=== PATIENT | female | born 1940 | race American Indian/Alaskan Native ===

== ENCOUNTER 2016-07-25 18:11 | Emergency (ER) | payer MEDICARE ==
--- NOTE | 2016-07-25 19:48 | Emergency Department Report ---
HPI - General Chief Complaint: Fall Time Seen by Provider: 07/25/16 19:24 - HPI HPI: This is a 76-year-old Afro[place] female presents to the emergency department by EMS from her [facility] assisted living home with complaint of a fall from ground-level agent was attempting to sit down in a chair and missed the chair falling down onto her backside. Patient remembers the entire event and denies hitting her head, hitting her neck, or any loss of consciousness. She has 0 physical complaints at this time but says she was sent in by the assisted living facility as they do so any time there is any type of fall or trauma. She has a past medical history of pulmonary embolism and is on Eloquist. She has some neurological condition that causes tremors. For the past week the patient has been having some hypertensive issues and is being followed by the primary care physician, Dr. tomas. She did not take anything and was not given anything status post fall today. She is able to ambulate without any type of assistance while in her residence but sometimes uses a cane when she is walking around the facility. ED Past Medical Hx - Past Medical History Previous Medical History?: Yes Hx Hypertension: Yes Hx Congestive Heart Failure: No Hx Diabetes: No Hx Deep Vein Thrombosis: Yes Hx Pulmonary Embolism: Yes Hx Asthma: No Hx COPD: No Hx Dementia: Yes Additional medical history: Neuromyelitis Optica - Surgical History Past Surgical History?: Yes Hx Pacemaker: Yes - Social History Smoking Status: Never Smoker Substance Use Type: None - Medications Home Medications: Home Medications Medication Instructions Recorded Confirmed Last Taken Type Acetaminophen [Acetaminophen TAB] 650 mg PO Q6H PRN #30 tablet 02/20/16 Unknown Rx Apixaban [Eliquis] 5 mg PO Q12HR #60 tablet 02/24/16 02/25/16 Unknown Rx AtorvaSTATin [Lipitor] 10 mg PO HS #30 tablet 02/24/16 02/24/16 Unknown Rx HYDROcodone/APAP 5-325 [[place] 1 each PO Q4H PRN #30 tablet 02/24/16 02/24/16 Unknown Rx 5-325 mg TAB] Magnesium Hydroxide [Milk of 30 ml PO Q4H PRN #30 oral.liqd 02/24/16 02/24/16 Unknown Rx Magnesia] Methimazole 10 mg PO QAM #30 02/24/16 02/24/16 Unknown Rx Mirtazapine 15 mg PO HS #30 tablet 02/24/16 02/24/16 Unknown Rx Pantoprazole [Protonix TAB] 40 mg PO DAILY #30 tablet 02/24/16 02/24/16 Unknown Rx Propranolol LA [Inderal LA] 80 mg PO QDAY #30 capsule 02/24/16 02/24/16 Unknown Rx Amlodipine Besylate [Norvasc] 2.5 mg PO DAILY #30 tab 07/25/16 Unknown Rx ED Review of Systems ROS: Stated complaint: FALL/STANDING POSITION Other details as noted in HPI Comment: All other systems reviewed and negative Constitutional: denies: chills, fever Eyes: denies: eye pain, eye discharge, vision change ENT: denies: ear pain, throat pain Respiratory: denies: cough, shortness of breath, wheezing Cardiovascular: denies: chest pain, palpitations Gastrointestinal: denies: abdominal pain, nausea, diarrhea Genitourinary: denies: urgency, dysuria, discharge Musculoskeletal: denies: back pain, joint swelling, arthralgia Skin: denies: rash, lesions Neurological: denies: headache, weakness, paresthesias Physical Exam - Physical Exam Vital Signs: Vital Signs 07/25/16 19:18 Temperature 97.9 F Pulse Rate 66 Blood Pressure 189/75 O2 Sat by Pulse 94 Oximetry Physical Exam: GENERAL: The patient is well-developed well-nourished. HEENT: Normocephalic. Atraumatic. Extraocular motions are intact. Patient has moist mucous membranes. Pupils equal reactive to light bilaterally. NECK: Supple. Trachea is midline. CHEST/LUNGS: Clear to auscultation. There is no respiratory distress noted. HEART/CARDIOVASCULAR: Regular. There is no tachycardia. There is no gallop rub or murmur. ABDOMEN: Abdomen is soft, nontender. Patient has normal bowel sounds. There is no abdominal distention. SKIN: There is no rash. There is no edema. There is no diaphoresis. NEURO: The patient is awake, alert, and oriented. The patient is cooperative. The patient has no focal neurologic deficits. The patient has normal speech. Cranial nerves II through XII grossly intact. MUSCULOSKELETAL: There is no tenderness or deformity. There is no limitation range of motion. There is no evidence of acute injury. Muscle strength 5 out of 5 upper and lower extremities bilaterally. ED Course Vital Signs 07/25/16 19:18 Temperature 97.9 F Pulse Rate 66 Blood Pressure 189/75 O2 Sat by Pulse 94 Oximetry ED Medical Decision Making - Radiology Data Radiology results: report reviewed, image reviewed interpreted by me: Chest x-ray does not show any rib fracture, pneumothorax, pleural effusions, pneumonia or any acute process. X-ray of the pelvis shows some degenerative changes and arthritis but otherwise no acute fracture or dislocation. CT of the head does not show any acute process including no hemorrhage, mass, shift, diffuse edema or skull fracture. - Medical Decision Making 76-year-old female presents after trying to sit down in a chair, missing, and falling onto her backside. She denies any headache or any loss of consciousness. However secondary to the fact the patient is on a strong blood thinner, a CT of the head was done, but it resulted as no bleed, shift, mass or any acute process. X-rays of the chest and pelvis were done as well that did not show any fracture, pneumothorax, dislocation or any acute processes as well. Patient was seen ambulatory in the emergency department and appeared stable during so. She presents with some hypertensive issues and this is something she has been dealing with for the past week and is being followed by the primary care doctor. However the patient did have some blood pressure levels that were concerning so she was given a low dose of Norvasc and it came down to a more reasonable level. She was started on 2.5 mg Norvasc to be taken daily and encouraged to follow-up with the primary care doctor in the next few days as well as the mixer tender, to see if they want to continue with his blood pressure medication changed to something else. She will return to the ER with any worsening of her symptoms or any acute distress. Critical Care Time: No Critical care attestation.: If time is entered above; I have spent that time in minutes in the direct care of this critically ill patient, excluding procedure time. ED Disposition Clinical Impression: Fall Qualifiers: Encounter type: initial encounter Qualified Code(s): W19.XXXA - Unspecified fall, initial encounter HTN (hypertension) Qualifiers: Hypertension type: essential hypertension Qualified Code(s): I10 - Essential ( primary) hypertension Disposition: DISCHARGED TO HOME OR SELFCARE Is pt being admited?: No Condition: Stable Instructions: Hypertension (ED), Fall Prevention (ED) Additional Instructions: Please follow-up with your primary care doctor and mixer tender as soon as possible. I have started you on a blood pressure medication called Norvasc at a low dose to be taken once daily, normally in the morning. Try to stay away from foods that are high in salt and caffeinated products to help with her blood pressure. Keep a blood pressure log. Return to the emergency department with any worsening of your symptoms or any acute distress. Prescriptions: Amlodipine Besylate [Norvasc] 2.5 mg PO DAILY #30 tab Referrals: PRIMARY CAREMD [Primary Care Provider] - [facility] Time of Disposition: 22:57
--- NOTE | 2016-07-25 20:37 | Cat Scan Report ---
FINAL REPORT PROCEDURE: CT HEAD/BRAIN WO CON TECHNIQUE: Computerized tomography of the head was performed without contrast material. HISTORY: fall COMPARISON: No prior studies are available for comparison. FINDINGS: Skull and scalp: Normal. Paranasal sinuses: Normal. Ventricles and subarachnoid spaces: There is mild central and cortical atrophy. There is no hydrocephalus or asymmetry.. Cerebrum: No evidence of hemorrhage, acute infarction or mass . Cerebellum and brainstem: No evidence of hemorrhage, acute infarction or mass. Vasculature: Normal. Comments: There is mild chronic deep white matter ischemic gliosis.. IMPRESSION: There is no acute intracranial abnormality. There is no skull fracture or hemorrhage.
[2016-07-25] MEDS ORDERED: NORVASC PO ONE (21:25)
[2016-07-25 22:14] VITALS: BP 153/85
--- NOTE | 2016-07-26 08:33 | XRay Report ---
AP pelvis. History: Pelvic pain after fall. Findings: There no fractures or other acute findings. Vascular stent is noted in the right iliac region. Bone mineralization is normal. Impression: No acute findings.
--- NOTE | 2016-07-26 08:37 | XRay Report ---
AP chest x-ray. History: Chest pain after fall. Findings: The heart and pulmonary vessels are normal. The lungs are free of acute infiltrates. A bipolar pacemaker is noted. Minimal pleural thickening in the right lateral lower thorax is unchanged. No pleural fluid is seen. Chronic deformity of the right proximal humerus is stable. Impression: No acute findings.
== END 2016-07-25 23:15 | disposition home or self-care (01) ==
LOC: ED 18:11
DX: I10 Essential (primary) hypertension (principal); F03.90 Unspecified dementia, unspecified severity, without behavioral disturbance, psychotic disturbance, mood disturbance, and anxiety; Z86.718 Personal history of other venous thrombosis and embolism; Z86.711 Personal history of pulmonary embolism; W18.30XA Fall on same level, unspecified, initial encounter; Y93.9 Activity, unspecified; Y92.9 Unspecified place or not applicable; Y99.9 Unspecified external cause status
CPT/HCPCS: 70450; 71010; 72170; 99284

== ENCOUNTER 2016-08-18 18:43 | Inpatient (IN) | payer MEDICARE ==
[2016-08-18] MEDS ORDERED: TRIDIL DRIP 50MG/250ML 50 MG/250 ML BOTTLE ONE (18:45)
[2016-08-18] MEDS ORDERED: NITROSTAT SL ONE (18:45)
[2016-08-18] MEDS ORDERED: SUBLIMAZE ONE (18:55)
[2016-08-18] MEDS ORDERED: NACL 0.9% 1000 ML 1,000 ML IV ONE ×2 (19:07→20:09)
[2016-08-18] MEDS ORDERED: PROVENTIL IH ONE (19:07)
[2016-08-18] MEDS ORDERED: MAGNESIUM SULFATE 2GM/50ML 2 GM/50 ML BAG IV ONE (19:07)
[2016-08-18] MEDS ORDERED: ATROVENT IH ONE (19:07)
[2016-08-18] MEDS ORDERED: VANCOMYCIN/NS 1 GM/250 ML 1 GM/250 ML BAG IV ONE (19:07)
[2016-08-18] MEDS ORDERED: ARTIFICIAL TEARS OPHTH OINT OU PRN (19:09)
[2016-08-18] MEDS ORDERED: VASELINE LIP THERAPY TP PRN (19:09)
--- NOTE | 2016-08-18 19:14 | Admit Criteria Form ---
Admission Criteria Documentation: RESPIRATORY FAILURE GRG Clinical Indications for Admission to Inpatient Care (Place 'X' for any and all applicable criteria): Hospital admission is needed for appropriate care of the patient because of acute respiratory failure or insufficiency as indicated by ANY ONE of the following(1)(2)(3)(4)(5)(6)(7)(8): [X]I. Mechanical ventilation needed (acute invasive or noninvasive) [ ]II. Severe ventilation deficit as indicated by ANY ONE of the following (9) [ ]a) Respiratory acidosis (pH less than 7.32 and partial pressure of carbon dioxide greater than 40 mm Hg (5.3 kPa)) [ ]b) Partial pressure of carbon dioxide greater than 44 mm Hg (5.9 kPa ) (new) [ ]c) Airflow measurements less than 25% of predicted (eg, peak expiratory flow rate less than 100 L/minute) [ ]d) Forced vital capacity less than 15 mL/kg of ideal body weight, or 50% decrease in vital capacity from baseline [ ]III. Noncardiac pulmonary edema not resolving with rapid emergency treatment (8) [ ]IV. Severe respiratory distress as indicated by ANY ONE of the following: [ ]a) Severe tachypnea (respiratory rate greater than 30, greater than 45 for 6-month-old, greater than 60 for ) [ ]b) Severe hypoxemia (partial pressure of oxygen less than 50 mm Hg ( 6.7 kPa) on greater than 50% oxygen or partial pressure of oxygen to FIO2 ratio less than 200) [ ]c) Mental status deterioration from respiratory disease [ ]V. Airway obstruction or inadequate protection [A](10)(11) The original [employer] content created by [employer] has been revised. The portions of the content which have been revised are identified through the use of italic text or in bold, and [employer] has neither reviewed nor approved the modified material. All other unmodified content is copyright [employer]. Please see references footnoted in the original [employer] edition 2016 Admission Criteria Met: Yes
--- NOTE | 2016-08-18 19:18 | Emergency Department Report ---
ED Shortness of Breath HPI - General Chief Complaint: Dyspnea/Respdistress Stated Complaint: UNRESPONSIVE Time Seen by Provider: 08/18/16 19:06 Source: EMS Mode of arrival: Stretcher Limitations: Altered Mental Status - History of Present Illness Initial Comments: Patient is a 76-year-old female, unknown to me, presenting to the ER in severe respiratory distress. History taking from EMS, called to the house, upon arrival patient was in severe respiratory distress, EMS reports she had a gag and was loosely following commands however they were giving rescue breaths via BVM with a nasopharyngeal airway in. Minimal history given, known history of CHF , and patient was discharged from [facility] today after having a CVA. Pt is on eliquis and mulitple other drugs. Upon arrival, patient saturating in the 80's, no gag reflex, tolerating oral airway and BVM, decision was made to intubated the patient. Pt was given ketamine 100mg and rocuronium 100mg IVP, intubated with glidescope x 1 attempt, MAC 3, 7.5 ETT 22cm at the lip. Breath sounds bilaterally, end cap with proper color change. - Related Data Home Medications Medication Instructions Recorded Confirmed Last Taken Acetaminophen [Acetaminophen TAB] 650 mg PO Q6H PRN 08/15/16 08/15/16 Unknown Loratadine [Claritin] 10 mg PO DAILY 08/15/16 08/15/16 Unknown Propranolol LA [Inderal LA] 80 mg PO QAM 08/15/16 08/15/16 Unknown Previous Rx's Medication Instructions Recorded Last Taken Type Apixaban [Eliquis] 5 mg PO Q12HR #60 tablet 02/24/16 Unknown Rx AtorvaSTATin [Lipitor] 10 mg PO HS #30 tablet 02/24/16 Unknown Rx Methimazole 10 mg PO QAM #30 02/24/16 Unknown Rx Mirtazapine 15 mg PO HS #30 tablet 02/24/16 Unknown Rx Furosemide [Lasix TAB] 20 mg PO 3XW #1 08/17/16 Unknown Rx Gabapentin [Neurontin] 100 mg PO Q8HR #30 08/17/16 Unknown Rx traMADol [Ultram 50 MG tab] 50 mg PO Q6HR PRN #7 tablet 08/17/16 Unknown Rx Allergies Allergy/AdvReac Type Severity Reaction Status Date / Time warfarin sodium Allergy Hives Verified 02/16/16 11:56 [From Coumadin] ED Review of Systems ROS: Stated complaint: UNRESPONSIVE Other details as noted in HPI Comment: Unobtainable due to pts medical conditions ED Past Medical Hx - Past Medical History Hx Hypertension: Yes Hx Heart Attack/AMI: No Hx Congestive Heart Failure: No Hx Diabetes: No Hx Deep Vein Thrombosis: Yes Hx Pulmonary Embolism: Yes Hx Liver Disease: No Hx Arthritis: Yes Hx Seizures: No Hx Asthma: No Hx COPD: No Hx Dementia: Yes Hx HIV: No Additional medical history: Neuromyelitis Optica - Surgical History Hx Coronary Stent: No Hx Pacemaker: Yes Hx Internal Defibrillator: No - Social History Smoking Status: Never Smoker - Medications Home Medications: Home Medications Medication Instructions Recorded Confirmed Last Taken Type Apixaban [Eliquis] 5 mg PO Q12HR #60 tablet 02/24/16 08/15/16 Unknown Rx AtorvaSTATin [Lipitor] 10 mg PO HS #30 tablet 02/24/16 08/15/16 Unknown Rx Methimazole 10 mg PO QAM #30 02/24/16 08/15/16 Unknown Rx Mirtazapine 15 mg PO HS #30 tablet 02/24/16 08/15/16 Unknown Rx Acetaminophen [Acetaminophen TAB] 650 mg PO Q6H PRN 08/15/16 08/15/16 Unknown History Loratadine [Claritin] 10 mg PO DAILY 08/15/16 08/15/16 Unknown History Propranolol LA [Inderal LA] 80 mg PO QAM 08/15/16 08/15/16 Unknown History Furosemide [Lasix TAB] 20 mg PO 3XW #1 08/17/16 08/15/16 Unknown Rx Gabapentin [Neurontin] 100 mg PO Q8HR #30 08/17/16 08/15/16 Unknown Rx traMADol [Ultram 50 MG tab] 50 mg PO Q6HR PRN #7 tablet 08/17/16 Unknown Rx ED Physical Exam - General Limitations: Altered Mental Status, Physical Limitation General appearance: obtunded, in distress - Head Head exam: Present: atraumatic, normocephalic - Eye Eye exam: Present: PERRL. Absent: EOMI, scleral icterus, nystagmus - ENT ENT exam: Present: mucous membranes moist, other (wet breath sounds) - Neck Neck exam: Present: normal inspection. Absent: lymphadenopathy, thyromegaly - Respiratory Respiratory exam: Present: respiratory distress, rales, rhonchi, decreased breath sounds - Cardiovascular Cardiovascular Exam: Present: regular rate, normal heart sounds, other ( pacermaker in left chest) - GI/Abdominal GI/Abdominal exam: Present: soft. Absent: distended - Rectal Rectal exam: Present: deferred - Extremities Exam Extremities exam: Present: normal inspection - Back Exam Back exam: Present: normal inspection - Neurological Exam Neurological exam: Present: other (unresponsive). Absent: alert, oriented X3 ED Course Vital Signs 08/18/16 08/18/16 08/18/16 19:00 19:04 19:05 Temperature 97.0 F L 98.7 F 97.0 F L Pulse Rate 102 H 87 Respiratory 20 19 Rate Blood Pressure Blood Pressure 102/70 95/50 [Left] O2 Sat by Pulse 88 89 100 Oximetry 08/18/16 08/18/16 08/18/16 19:11 19:15 19:21 Temperature Pulse Rate 85 85 76 Respiratory 19 19 17 Rate Blood Pressure 63/36 56/31 211/126 Blood Pressure [Left] O2 Sat by Pulse 100 95 Oximetry 08/18/16 08/18/16 08/18/16 19:25 19:31 19:35 Temperature Pulse Rate 75 81 77 Respiratory 17 18 18 Rate Blood Pressure 205/111 124/72 136/108 Blood Pressure [Left] O2 Sat by Pulse 100 Oximetry 08/18/16 08/18/16 08/18/16 19:37 19:41 19:45 Temperature Pulse Rate 77 72 Respiratory 18 18 18 Rate Blood Pressure 58/31 58/24 Blood Pressure [Left] O2 Sat by Pulse 99 Oximetry 08/18/16 08/18/16 08/18/16 19:50 19:55 20:00 Temperature Pulse Rate 70 70 71 Respiratory 18 18 18 Rate Blood Pressure 62/28 61/29 68/31 Blood Pressure [Left] O2 Sat by Pulse Oximetry 08/18/16 08/18/16 08/18/16 20:05 20:10 20:15 Temperature Pulse Rate 74 75 72 Respiratory 18 18 18 Rate Blood Pressure 59/39 81/51 80/48 Blood Pressure [Left] O2 Sat by Pulse 93 Oximetry 08/18/16 08/18/16 08/18/16 20:21 20:25 20:30 Temperature Pulse Rate 70 70 69 Respiratory 18 18 18 Rate Blood Pressure 119/72 139/82 131/77 Blood Pressure [Left] O2 Sat by Pulse 93 97 100 Oximetry 08/18/16 08/18/16 08/18/16 20:35 20:40 20:45 Temperature Pulse Rate 74 71 71 Respiratory 18 18 18 Rate Blood Pressure 114/71 130/79 120/88 Blood Pressure [Left] O2 Sat by Pulse Oximetry 08/18/16 08/18/16 08/18/16 20:50 20:55 21:01 Temperature Pulse Rate 77 69 74 Respiratory 18 18 19 Rate Blood Pressure 139/82 149/82 161/92 Blood Pressure [Left] O2 Sat by Pulse Oximetry 08/18/16 08/18/16 08/18/16 21:05 21:11 21:15 Temperature Pulse Rate 71 69 69 Respiratory 17 18 18 Rate Blood Pressure 161/92 161/92 139/82 Blood Pressure [Left] O2 Sat by Pulse 100 Oximetry 08/18/16 08/18/16 08/18/16 21:20 22:38 22:45 Temperature Pulse Rate 70 70 72 Respiratory 13 18 20 Rate Blood Pressure 139/82 133/80 148/75 Blood Pressure [Left] O2 Sat by Pulse 100 Oximetry 08/18/16 08/18/16 08/18/16 23:00 23:15 23:19 Temperature Pulse Rate 70 71 70 Respiratory 18 17 Rate Blood Pressure 157/77 153/90 157/77 Blood Pressure [Left] O2 Sat by Pulse Oximetry 08/18/16 08/18/16 23:30 23:56 Temperature Pulse Rate 70 72 Respiratory 18 18 Rate Blood Pressure 151/91 Blood Pressure [Left] O2 Sat by Pulse Oximetry - Central Line Placement Right Femoral Consent Obtained: emergent situation Time Out Performed: Yes Patient Placed on Monitor/Pulse Ox: Yes Prep: mask, gown, gloves Central Line Prep: Chlorhexidine scrub, sterile drapes applied Local Anesthesia Used: other anesthetic Ultrasound Used for Placement: Yes Central Line Lumen Inserted: triple Bloods Obtained for Lab: Yes Central Line Position: good blood return, all ports aspirated, flus, sutured in place with 2-0 Dressing Applied: Tegaderm Post Procedure X-Ray: tip of catheter in good p Patient Tolerated Procedure: well Complications: none - Intubation Time Out Performed: Yes Sedative: Ketamine Mg Given: 100 Paralytic: Rocuronium Mg Given: 100 Laryngoscope: fiberoptic video scope Size: 3 Assist Device Used: fiberoptic device ET Tube Size: 7.5 Tube Secured Depth (cm): 22 Tube Secured Location: lips Tube Placement Confirmation: visualized tube passing t, equal breath sounds bilat, confirmation by capnometr Patient Tolerated Procedure: well Intubation Complications: none ED Medical Decision Making - Lab Data Result diagrams: 08/18/16 20:44 08/18/16 19:46 - EKG Data -: EKG Interpreted by Nv - EKG Data 08/18/16 1858 A paced rhythm at 70 bpm, QTC 43 ms, normal axis, no LVH, no ST changes no STEMI - Radiology Data Radiology results: report reviewed KUB: AP portable view of the abdomen and pelvis Enteric tube courses below the diaphragm and terminates in the left upper abdomen. The distal side port is at or near the gastroesophageal junction. Infrarenal IVC filter is present. Right iliac vascular stent with femoral catheter in place. No supine evidence of pneumoperitoneum. Patient is rotated. Right lower lung pleural effusion. IMPRESSION: Right femoral line within or adjacent to vascular stent. Enteric tube is in place with side port at or near the gastroesophageal junction. Consider advancement of 4-5 centimeters for more optimal positioning. Transcribed By: JASMYNE Dictated By: ARTHUR BELLA MD Electronically Authenticated By: ARTHUR BELLA MD Signed Date/Time: 08/18/[address] head: No acute intercranial abnormality. Atrophy stable. Right sinusitis. CXR:FINDINGS: Endotracheal tube terminates approximately 4 centimeters above the dima. Enteric tube courses below the hemidiaphragm with distal side port at or near the gastroesophageal junction. A left chest pacemaker is present. Patient is rotated. No mediastinal shift. Cardiac silhouette is not enlarged. No pneumothorax. Right lower lung airspace disease and small layering effusion. No acute skeletal finding. IMPRESSION: Small right pleural effusion may be cardiogenic, infectious or malignant in etiology. PA and lateral chest radiographic follow-up to resolution recommended. Transcribed By: JASMYNE Dictated By: ARTHUR BELLA MD Electronically Authenticated By: ARTHUR BELLA MD Signed Date/Time: 08/18/16 4296 - Medical Decision Making Pt in critical condition, unknown reason for sudden respiratory distress and obtunded state. As per daughter she was talking and moving around this morning prior to discharge from the hospital. Discharge records reviewed from 1051 this morning. Pt has a history of hypothyroidism, hypertension, and was admitted initially for sudden weakness, inability to walk, and frailty. She was admitted under stroke protocol, however brain imaging show any stroke. 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 Statin was discontinued, patient was seen by physical therapy while in the hospital and then was supposed to go to subacute rehabilitation for further rehabilitation today. Patient was discharged. Critical Care Time: Yes Critical care time in (mins) excluding proc time.: 35 Critical care attestation.: If time is entered above; I have spent that time in minutes in the direct care of this critically ill patient, excluding procedure time. Upon arrival, patient saturating in the 80's, no gag reflex, tolerating oral airway and BVM, decision was made to intubate the patient. Pt was given ketamine 100mg and rocuronium 100mg IVP, intubated with glidescope x 1 attempt, MAC 3, 7.5 ETT 22cm at the lip. Breath sounds bilaterally, end cap with proper color change. Ordered broad spec antibiotics for empiric coverage. Barragan and NGT tube placed. ED Disposition Clinical Impression: Respiratory failure, Altered mental status Disposition: [id number] OP ADMIT IP TO THIS HOSP Is pt being admited?: Yes Condition: Critical
[2016-08-18] MEDS ORDERED: ADRENALIN IV ONE (19:44)
[2016-08-18] MEDS ORDERED: LEVOPHED DRIP 4 MG/NS 250 ML 4 MG/250 ML BAG IV ONE (19:54)
[2016-08-18] MEDS: LEVOPHED DRIP 4 MG/NS 250 ML 4 MG/250 ML BAG IV SCH (20:03)
--- NOTE | 2016-08-18 20:05 | History and Physical Report ---
History of Present Illness Chief complaint: I cant breathe, History of present illness: 75 YO Female with HTN, DVT complicated by PE in Anticoagulation, OA, Dementia, CHF, HTN, HLD, Restless Leg Syndrome presents to ED for evaluation. Pt unable to provide history, but history taken from ED staff, and EMS staff. EMS called to for respiratory distress. Upon arrival pt found to be hypoxemic with Sao2 in the 80's and in distress, and unresponsive. Pt transported to [facility]. Pt seen and evaluated in ED and found to be in distress and unable to protect her airway. Pt intubated in ED, pt also found to by hypotensive with systolic in 80's and placed on pressor support. No reports of fever, chills, CP, Palpitatons, trauma , BRBPR, or recent ill contacts. Past History Past Medical History: DVT, heart failure, hyperthyroidism, hypertension, hyperlipidemia, pulmonary embolism Past Surgical History: Other (IVC filter, Pacemaker) Social history: . denies: smoking, alcohol abuse, prescription drug abuse Family history: hypertension Medications and Allergies Allergies Allergy/AdvReac Type Severity Reaction Status Date / Time warfarin sodium Allergy Hives Verified 02/16/16 11:56 [From Coumadin] Home Medications Medication Instructions Recorded Confirmed Last Taken Type Apixaban [Eliquis] 5 mg PO Q12HR #60 tablet 02/24/16 08/15/16 Unknown Rx AtorvaSTATin [Lipitor] 10 mg PO HS #30 tablet 02/24/16 08/15/16 Unknown Rx Methimazole 10 mg PO QAM #30 02/24/16 08/15/16 Unknown Rx Mirtazapine 15 mg PO HS #30 tablet 02/24/16 08/15/16 Unknown Rx Acetaminophen [Acetaminophen TAB] 650 mg PO Q6H PRN 08/15/16 08/15/16 Unknown History Loratadine [Claritin] 10 mg PO DAILY 08/15/16 08/15/16 Unknown History Propranolol LA [Inderal LA] 80 mg PO QAM 08/15/16 08/15/16 Unknown History Furosemide [Lasix TAB] 20 mg PO 3XW #1 08/17/16 08/15/16 Unknown Rx Gabapentin [Neurontin] 100 mg PO Q8HR #30 08/17/16 08/15/16 Unknown Rx traMADol [Ultram 50 MG tab] 50 mg PO Q6HR PRN #7 tablet 08/17/16 Unknown Rx Active Meds: Active Medications Hydrophilic Ointment (Vaseline Lip Therapy) 1 applic TP Q2HR PRN PRN Reason: Dry Lips Fentanyl Citrate (Fentanyl Drip Premix) 2,000 mcg in 100 mls @ 3.969 mls/hr IV TITR INGRIS; 1 MCG/KG/HR PRN Reason: Protocol Sodium Chloride (Nacl 0.9% 1000 Ml) 1,000 mls @ 999 mls/hr IV BOLUS ONE Stop: 08/18/16 20:07 Propofol (Diprivan 10 Mg/Ml) 1,000 mg in 100 mls @ 2.381 mls/hr IV TITR INGRIS; 5 MCG/KG/MIN PRN Reason: Protocol Vancomycin HCl (Vancomycin/Ns 1 Gm/250 Ml) 1 gm in 250 mls @ 167.007 mls/hr IV ONCE ONE PRN Reason: Protocol Stop: 08/18/16 20:36 Norepinephrine (Levophed Drip 4 Mg/Ns 250 Ml) 4 mg in 250 mls @ 7.5 mls/hr IV TITR INGRIS; 2 MCG/MIN PRN Reason: Protocol Last Admin: 08/18/16 20:03 Dose: 6 mcg/min, 22.5 mls/hr Multi-Ingred Cream/Lotion/Oil/Oint (Artificial Tears Ophth Oint) 1 applic OU Q4HR PRN PRN Reason: Dry Eye(s) Review of Systems ROS unobtainable: due to mental status Exam - Constitutional Vitals: Temp Pulse Resp BP Pulse Ox 97.0 F L 75 18 205/111 99 08/18/16 19:05 08/18/16 19:25 08/18/16 19:37 08/18/16 19:25 08/18/16 19:37 General appearance: Present: severe distress - Neck Neck: Present: supple, normal ROM - Respiratory Respiratory effort: labored Respiratory: bilateral: diminished - Cardiovascular Rhythm: regular Heart Sounds: Present: S1 & S2 - Extremities Extremity abnormal: edema Peripheral Pulses: within normal limits - Abdominal General gastrointestinal: Present: soft, non-tender, non-distended, normal bowel sounds Female genitourinary: Present: normal - Integumentary Integumentary: Present: clear, dry, decreased turgor - Musculoskeletal Musculoskeletal: generalized weakness - Psychiatric Psychiatric: no intact judgment & insight, no memory intact - Neurologic Neurologic: no gait normal Results - Labs CBC & Chem 7: 08/18/16 20:44 08/18/16 19:46 Assessment and Plan - Patient Problems (1) Acute respiratory failure Current Visit: Yes Status: Acute Qualifiers: Respiratory failure complication: R Plan to address problem: Wean vent as tolerated, Pulmonary consulted, ABG in Am, SBT in am, nebs, (2) Septic shock Current Visit: Yes Status: Acute Plan to address problem: Sepsis protocol: IV abx, IVF, pressor support, monitor uop q shift, serial lactate level, blood cultures (3) CHF (congestive heart failure) Current Visit: No Status: Chronic Qualifiers: Congestive heart failure type: systolic Congestive heart failure chronicity : acute on chronic Qualified Code(s): I50.23 - Acute on chronic systolic ( congestive) heart failure Plan to address problem: telemetry, serial cardiac enzymes, ekg, supportive care, echo in am if stable. (4) DVT prophylaxis Current Visit: Yes Status: Acute
[2016-08-18] MEDS ORDERED: DULCOLAX PR PRN (20:06)
[2016-08-18] MEDS ORDERED: MILK OF MAGNESIA PO PRN (20:06)
[2016-08-18] MEDS ORDERED: ALUM-MAG HYDROX-SIMETH 200-200-20MG/5ML PO PRN (20:06)
[2016-08-18] MEDS ORDERED: DUONEB 0.5 MG-3 MG/3 ML SOLN IH PRN (20:06)
[2016-08-18] MEDS ORDERED: VANCOMYCIN VIAL 1,500 MG in NACL 0.9% 500 ML 500 ML IV ONE (20:09)
[2016-08-18] MEDS ORDERED: NACL 0.9% 1000 ML IV ONE (20:09)
[2016-08-18] MEDS ORDERED: TYLENOL PO PRN (20:10)
[2016-08-18] MEDS: DIPRIVAN 10 MG/ML 1,000 MG/100 ML BOTTLE IV SCH (20:20)
[2016-08-18] MEDS: fentaNYL DRIP Premix 2,000 MCG/100 ML BAG IV SCH (20:20)
[2016-08-18] MEDS ORDERED: PROVENTIL IH PRN (20:43)
[2016-08-18 20:47] LABS: Albumin 2.9 g/dL (3.9-5); Albumin/Globulin Ratio 0.7 %; Alkaline Phosphatase 95 units/L (35-129); Anion Gap 22 mmol/L; BUN/Creatinine Ratio 21.66; Blood Urea Nitrogen 13 mg/dL (7-17); Calcium 8.3 mg/dL (8.4-10.2); Carbon Dioxide 26 mmol/L (22-30); Chloride 90.1 mmol/L (98-107); Glucose 166 mg/dL (65-100); Sodium 133 mmol/L (137-145); Total Protein 6.8 g/dL (6.3-8.2)
[2016-08-18 20:50] LABS: Alanine Aminotransferase 29 units/L (7-56)
[2016-08-18 20:51] LABS: Potassium 5.1 mmol/L (3.6-5.0)
[2016-08-18] MEDS ORDERED: VANCOMYCIN PHARMACY TO DOSE IV SCH (21:00)
[2016-08-18 21:17] LABS: Hematocrit 38.9 % (30.3-42.9); Hemoglobin 12.1 gm/dl (10.1-14.3); Mean Corpuscular HGB Conc 31 % (30-34); Mean Corpuscular Volume 83 fl (79-97); Platelet Count 295 K/mm3 (140-440); Red Blood Count 4.68 M/mm3 (3.65-5.03); Red Cell Distribution Width 17.3 % (13.2-15.2)
[2016-08-18 21:18] LABS: Bacteria,Urine 1+ /HPF (Negative); Bilirubin,Urine NEG (Negative); Blood,Urine LG (Negative); Ketones,Urine NEG (Negative); Leukocyte Esterase,Urine NEG (Negative); Mucus,Urine FEW /HPF; Nitrite,Urine NEG (Negative); Urobilinogen,Urine < 2.0 mg/dL (<2.0)
[2016-08-18 21:20] LABS: White Blood Count 20.7 K/mm3 (4.5-11.0)
[2016-08-18 21:21] LABS: Mean Corpuscular Hemoglobin 26 pg (28-32)
[2016-08-18 21:28] LABS: INR 1.5 (0.87-1.13)
[2016-08-18 21:29] LABS: Partial Thromboplastin Time 28.6 Sec. (24.2-36.6)
[2016-08-18 21:29] LABS: ISTAT Base Excess 16; ISTAT PCO2 41.6 (35-45); ISTAT PH 7.569 (7.35-7.45); ISTAT PO2 182 (80-105); ISTAT SO2 100; ISTAT TCO2 39
[2016-08-18 21:55] LABS: Anisocytosis 1+; Basophils % (Manual) 0 % (0.0-1.8); Blastocytes % (Manual) 0 %; Diff Status Complete; Eosinophils % (Manual) 0 % (0.0-4.3); Hypochromasia 1+; Ovalocytes Few; Platelet Estimate Consistent w Auto
[2016-08-18] MEDS ORDERED: NEURONTIN PO SCH (22:00)
[2016-08-18] MEDS: ELIQUIS PO SCH (22:23)
[2016-08-18] MEDS: NEURONTIN PO SCH (22:23)
[2016-08-18] MEDS: REMERON PO SCH (22:24)
--- NOTE | 2016-08-18 23:03 | Cat Scan Report ---
FINAL REPORT EXAM: CT HEAD/BRAIN WO CON HISTORY: altered ms TECHNIQUE: CT imaging is acquired through the brain without contrast. Transaxial reformations are provided. PRIORS: 08/15/2016 FINDINGS: Ventricles and CSF spaces are proportionately enlarged, consistent with parenchymal atrophy. Scattered deep and subcortical white matter hypodense foci are confluent in some areas and are compatible with microvascular angiopathy. No acute intracranial hemorrhage or mass effect. Calvarium and superficial scalp are intact. Mild mucosal thickening with small fluid level in the right maxillary sinus. No significant abnormality within the remaining imaged paranasal sinuses or mastoid air cells. IMPRESSION: No acute intracranial abnormality. There are chronic sequela of atrophy and microvascular angiopathy. Small fluid level in the right maxillary sinus. Please correlate for symptoms of acute sinusitis.
--- NOTE | 2016-08-18 23:24 | XRay Report ---
FINAL REPORT EXAM: XR CHEST 1V AP HISTORY: jim TECHNIQUE: AP portable view(s) of the chest obtained. PRIORS: None. FINDINGS: Endotracheal tube terminates approximately 4 centimeters above the dima. Enteric tube courses below the hemidiaphragm with distal side port at or near the gastroesophageal junction. A left chest pacemaker is present. Patient is rotated. No mediastinal shift. Cardiac silhouette is not enlarged. No pneumothorax. Right lower lung airspace disease and small layering effusion. No acute skeletal finding. IMPRESSION: Small right pleural effusion may be cardiogenic, infectious or malignant in etiology. PA and lateral chest radiographic follow-up to resolution recommended.
--- NOTE | 2016-08-18 23:43 | XRay Report ---
FINAL REPORT EXAM: XR ABDOMEN 1V AP HISTORY: line placement COMPARISONS: Chest radiograph of the same date FINDINGS: AP portable view of the abdomen and pelvis Enteric tube courses below the diaphragm and terminates in the left upper abdomen. The distal side port is at or near the gastroesophageal junction. Infrarenal IVC filter is present. Right iliac vascular stent with femoral catheter in place. No supine evidence of pneumoperitoneum. Patient is rotated. Right lower lung pleural effusion. IMPRESSION: Right femoral line within or adjacent to vascular stent. Enteric tube is in place with side port at or near the gastroesophageal junction. Consider advancement of 4-5 centimeters for more optimal positioning.
[2016-08-19] MEDS ORDERED: KETALAR ONE (00:24)
[2016-08-19] MEDS ORDERED: ZEMURON IV ONE (00:24)
[2016-08-19] MEDS ORDERED: ADRENALIN ONE (00:24)
[2016-08-19 05:05] LABS: ISTAT Base Excess 5; ISTAT HCO3 27.7; ISTAT PCO2 33.8 (35-45); ISTAT PH 7.521 (7.35-7.45); ISTAT PO2 79 (80-105); ISTAT SO2 97; ISTAT TCO2 29
[2016-08-19] MEDS: LEVOPHED DRIP 4 MG/NS 250 ML 4 MG/250 ML BAG IV SCH ×2 (07:05→16:00)
[2016-08-19] MEDS: fentaNYL DRIP Premix 2,000 MCG/100 ML BAG IV SCH ×2 (07:06→23:15)
[2016-08-19 09:06] LABS: Hematocrit 37.6 % (30.3-42.9); Mean Corpuscular HGB Conc 32 % (30-34); Mean Corpuscular Hemoglobin 26 pg (28-32); Mean Corpuscular Volume 83 fl (79-97); Platelet Count 283 K/mm3 (140-440); Red Blood Count 4.55 M/mm3 (3.65-5.03); Red Cell Distribution Width 17.6 % (13.2-15.2); White Blood Count 13.3 K/mm3 (4.5-11.0)
[2016-08-19 09:17] LABS: Anion Gap 19 mmol/L; BUN/Creatinine Ratio 21.25; Blood Urea Nitrogen 17 mg/dL (7-17); Carbon Dioxide 28 mmol/L (22-30); Chloride 93.8 mmol/L (98-107); Glucose 119 mg/dL (65-100); Potassium 4.3 mmol/L (3.6-5.0); Sodium 136 mmol/L (137-145)
--- NOTE | 2016-08-19 09:57 | Progress Note ---
Assessment and Plan Assessment and plan: Acute respiratory failure. She is intubated. Pulmonology following. 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 On Eliquis History of pulmonary embolism. Has been on Eliquis Chronic CHF. Hyperthyroidsm. Hypertension. BP stable history of recent stroke Full code status History Interval history: Patient with acute resp failure, intubated Hospitalist Physical - Physical exam Narrative exam: Gen: appearance : Intubated, HEENT: normocephalic, atraumatic Neck :supple no JVD Lungs: clear to auscultation bilaterally, no crackles, or wheezes Heart:S1 and S2 regular, no murmurs, no gallop, no rubs Abdomen soft, non-tender, non-distended, normal bowel sounds Extremities: no edema, no clubbing, or cyanosis Neuro : Intubated, sedated - Constitutional Vitals: Temp Pulse Resp BP Pulse Ox 99.2 F 74 16 89/47 98 08/19/16 08:00 08/19/16 08:00 08/19/16 08:00 08/19/16 08:00 08/19/16 07:50 General appearance: Present: severe distress Results - Labs CBC & Chem 7: 08/19/16 08:43 08/19/16 08:43 Labs: Laboratory Last Values WBC 13.3 K/mm3 (4.5-11.0) H 08/19/16 08:43 RBC 4.55 M/mm3 (3.65-5.03) 08/19/16 08:43 Hgb 12.0 gm/dl (10.1-14.3) 08/19/16 08:43 Hct 37.6 % (30.3-42.9) 08/19/16 08:43 MCV 83 fl (79-97) 08/19/16 08:43 MCH 26 pg (28-32) L 08/19/16 08:43 MCHC 32 % (30-34) 08/19/16 08:43 RDW 17.6 % (13.2-15.2) H 08/19/16 08:43 Plt Count 283 K/mm3 (140-440) 08/19/16 08:43 Add Manual Diff Complete 08/18/16 20:44 Total Counted 100 08/18/16 20:44 Seg Neutrophils % [employer] Worker 08/18/16 20:44 Seg Neuts % (Manual) 71.0 % (40.0-70.0) H 08/18/16 20:44 Band Neutrophils % 19.0 % 08/18/16 20:44 Lymphocytes % (Manual) 5.0 % (13.4-35.0) L 08/18/16 20:44 Reactive Lymphs % (Man) 0 % 08/18/16 20:44 Monocytes % (Manual) 5.0 % (0.0-7.3) 08/18/16 20:44 Eosinophils % (Manual) 0 % (0.0-4.3) 08/18/16 20:44 Basophils % (Manual) 0 % (0.0-1.8) 08/18/16 20:44 Metamyelocytes % 0 % 08/18/16 20:44 Myelocytes % 0 % 08/18/16 20:44 Promyelocytes % 0 % 08/18/16 20:44 Blast Cells % 0 % 08/18/16 20:44 Nucleated RBC % Not Reportable 08/18/16 20:44 Seg Neutrophils # Man 14.7 K/mm3 (1.8-7.7) H 08/18/16 20:44 Band Neutrophils # 3.9 K/mm3 08/18/16 20:44 Lymphocytes # (Manual) 1.0 K/mm3 (1.2-5.4) L 08/18/16 20:44 Abs React Lymphs (Man) 0.0 K/mm3 08/18/16 20:44 Monocytes # (Manual) 1.0 K/mm3 (0.0-0.8) H 08/18/16 20:44 Eosinophils # (Manual) 0.0 K/mm3 (0.0-0.4) 08/18/16 20:44 Basophils # (Manual) 0.0 K/mm3 (0.0-0.1) 08/18/16 20:44 Metamyelocytes # 0.0 K/mm3 08/18/16 20:44 Myelocytes # 0.0 K/mm3 08/18/16 20:44 Promyelocytes # 0.0 K/mm3 08/18/16 20:44 Blast Cells # 0.0 K/mm3 08/18/16 20:44 WBC Morphology Not Reportable 08/18/16 20:44 Hypersegmented Neuts Not Reportable 08/18/16 20:44 Hyposegmented Neuts Not Reportable 08/18/16 20:44 Hypogranular Neuts Not Reportable 08/18/16 20:44 Smudge Cells Not Reportable 08/18/16 20:44 Toxic Granulation Not Reportable 08/18/16 20:44 Toxic Vacuolation Not Reportable 08/18/16 20:44 Dohle Bodies Not Reportable 08/18/16 20:44 Pelger-Huet Anomaly Not Reportable 08/18/16 20:44 Alberto Rods Not Reportable 08/18/16 20:44 Platelet Estimate Consistent w auto 08/18/16 20:44 Clumped Platelets Not Reportable 08/18/16 20:44 Plt Clumps, EDTA Not Reportable 08/18/16 20:44 Large Platelets Not Reportable 08/18/16 20:44 Giant Platelets Not Reportable 08/18/16 20:44 Platelet Satelliting Not Reportable 08/18/16 20:44 Plt Morphology Comment Not Reportable 08/18/16 20:44 RBC Morphology Not Reportable 08/18/16 20:44 Dimorphic RBCs Not Reportable 08/18/16 20:44 Polychromasia Not Reportable 08/18/16 20:44 Hypochromasia 1+ 08/18/16 20:44 Poikilocytosis Not Reportable 08/18/16 20:44 Anisocytosis 1+ 08/18/16 20:44 Microcytosis Not Reportable 08/18/16 20:44 Macrocytosis Not Reportable 08/18/16 20:44 Spherocytes Not Reportable 08/18/16 20:44 Pappenheimer Bodies Not Reportable 08/18/16 20:44 Sickle Cells Not Reportable 08/18/16 20:44 Target Cells Not Reportable 08/18/16 20:44 Tear Drop Cells Not Reportable 08/18/16 20:44 Ovalocytes Few 08/18/16 20:44 Helmet Cells Not Reportable 08/18/16 20:44 Alvarez-Carpenter Bodies Not Reportable 08/18/16 20:44 [place] Rings Not Reportable 08/18/16 20:44 Valerie Cells Not Reportable 08/18/16 20:44 Bite Cells Not Reportable 08/18/16 20:44 Crenated Cell Not Reportable 08/18/16 20:44 Elliptocytes Not Reportable 08/18/16 20:44 Acanthocytes (Spur) Not Reportable 08/18/16 20:44 Rouleaux Not Reportable 08/18/16 20:44 Hemoglobin C Crystals Not Reportable 08/18/16 20:44 Schistocytes Not Reportable 08/18/16 20:44 Malaria parasites Not Reportable 08/18/16 20:44 Gino Bodies Not Reportable 08/18/16 20:44 Hem Pathologist Commnt No 08/18/16 20:44 PT 18.1 Sec. (12.2-14.9) H 08/18/16 20:44 INR 1.50 (0.87-1.13) H 08/18/16 20:44 APTT 28.6 Sec. (24.2-36.6) 08/18/16 20:44 POC ABG pH 7.521 (7.35-7.45) H 08/19/16 04:46 POC ABG pCO2 33.8 (35-45) L 08/19/16 04:46 POC ABG pO2 79 (80-105) L 08/19/16 04:46 POC ABG HCO3 27.7 08/19/16 04:46 POC ABG Total CO2 29 08/19/16 04:46 POC ABG O2 Sat 97 08/19/16 04:46 POC ABG Base Excess 5 08/19/16 04:46 FiO2 50 % 08/19/16 04:46 Sodium 136 mmol/L (137-145) L 08/19/16 08:43 Potassium 4.3 mmol/L (3.6-5.0) 08/19/16 08:43 Chloride 93.8 mmol/L (98-107) L 08/19/16 08:43 Carbon Dioxide 28 mmol/L (22-30) 08/19/16 08:43 Anion Gap 19 mmol/L 08/19/16 08:43 BUN 17 mg/dL (7-17) 08/19/16 08:43 Creatinine 0.8 mg/dL (0.7-1.2) 08/19/16 08:43 Estimated GFR > 60 ml/min 08/19/16 08:43 BUN/Creatinine Ratio 21.25 % 08/19/16 08:43 Glucose 119 mg/dL (65-100) H 08/19/16 08:43 POC Glucose 113 (70-105) H 08/19/16 05:35 Lactic Acid 2.10 mmol/L (0.7-2.0) H* 08/19/16 01:20 Calcium 8.0 mg/dL (8.4-10.2) L 08/19/16 08:43 Magnesium 2.30 mg/dL (1.7-2.3) 08/18/16 19:46 Total Bilirubin 0.40 mg/dL (0.1-1.2) 08/18/16 19:46 AST 11 units/L (5-40) 08/18/16 19:46 ALT 29 units/L (7-56) 08/18/16 19:46 Alkaline Phosphatase 95 units/L (35-129) 08/18/16 19:46 Troponin T < 0.010 ng/mL (0.00-0.029) 08/18/16 19:46 NT-Pro-B Natriuret Pep 440.6 pg/mL (0-900) 08/18/16 19:46 Total Protein 6.8 g/dL (6.3-8.2) 08/18/16 19:46 Albumin 2.9 g/dL (3.9-5) L 08/18/16 19:46 Albumin/Globulin Ratio 0.7 % 08/18/16 19:46 Urine Color Yellow (Yellow) 08/18/16 20:44 Urine Turbidity Slightly-cloudy (Clear) 08/18/16 20:44 Urine pH 6.0 (5.0-7.0) 08/18/16 20:44 Ur Specific [place] 1.012 (1.003-1.030) 08/18/16 20:44 Urine Protein 100 mg/dl mg/dL (Negative) 08/18/16 20:44 Urine Glucose (UA) Neg mg/dL (Negative) 08/18/16 20:44 Urine Ketones Neg mg/dL (Negative) 08/18/16 20:44 Urine Blood Lg (Negative) 08/18/16 20:44 Urine Nitrite Neg (Negative) 08/18/16 20:44 Urine Bilirubin Neg (Negative) 08/18/16 20:44 Urine Urobilinogen < 2.0 mg/dL (<2.0) 08/18/16 20:44 Ur Leukocyte Esterase Neg (Negative) 08/18/16 20:44 Urine WBC (Auto) 9.0 /HPF (0.0-6.0) H 08/18/16 20:44 Urine RBC (Auto) 25.0 /HPF (0.0-6.0) 08/18/16 20:44 U Epithel Cells (Auto) < 1.0 /HPF (0-13.0) 08/18/16 20:44 Urine Bacteria (Auto) 1+ /HPF (Negative) 08/18/16 20:44 Urine Mucus Few /HPF 08/18/16 20:44
[2016-08-19] MEDS ORDERED: METHIMAZOLE 10 MG PO SCH (10:00)
[2016-08-19] MEDS ORDERED: NACL 0.9% 1000 ML 1,000 ML IV ONE ×2 (10:06→10:10)
[2016-08-19] MEDS: LEVAQUIN 750MG/150ML 750 MG/150 ML BAG IV SCH (10:11)
[2016-08-19] MEDS: PEPCID IV SCH ×2 (10:12→21:37)
[2016-08-19] MEDS: TAPAZOLE PO SCH (10:13)
[2016-08-19] MEDS: ELIQUIS PO SCH ×2 (10:13→21:37)
[2016-08-19] MEDS: CLARITIN PO SCH (10:14)
[2016-08-19] MEDS: INDERAL LA PO SCH (10:19)
--- NOTE | 2016-08-19 12:06 | Consultation ---
History of Present Illness Consult date: 08/19/16 Requesting physician: ARTHUR SO Reason for consult: hypoxemia History of present illness: 76 y/o female with recent stroke, admitted to the ROB unit, discharged on yesterday, who was readmitted last night with acute respiratory distress. Head CT was negative. patient was on anticoagulation at discharge for stroke. Seen here in February of 2016 by vascular for extensive clot in Lower Ext. Had EKOS placed and then had IVC filter placed. Not sure if she was on anticoagulation prior to coming in for stroke. Per charting and H and P from most recent admission, patient was on eliquis 5 BID. Currently on vent, not responsive on Fentanyl drip. No family at bedside. Also hypotensive on pressors. Past History Past Medical History: DVT, heart failure, hyperthyroidism, hypertension, hyperlipidemia, pulmonary embolism Past Surgical History: Other (IVC filter, Pacemaker) Social history: . denies: smoking, alcohol abuse, prescription drug abuse Family history: hypertension Medications and Allergies Allergies Allergy/AdvReac Type Severity Reaction Status Date / Time warfarin sodium Allergy Hives Verified 02/16/16 11:56 [From Coumadin] Home Medications Medication Instructions Recorded Confirmed Last Taken Type Apixaban [Eliquis] 5 mg PO Q12HR #60 tablet 02/24/16 08/15/16 Unknown Rx AtorvaSTATin [Lipitor] 10 mg PO HS #30 tablet 02/24/16 08/15/16 Unknown Rx Methimazole 10 mg PO QAM #30 02/24/16 08/15/16 Unknown Rx Mirtazapine 15 mg PO HS #30 tablet 02/24/16 08/15/16 Unknown Rx Acetaminophen [Acetaminophen TAB] 650 mg PO Q6H PRN 08/15/16 08/15/16 Unknown History Loratadine [Claritin] 10 mg PO DAILY 08/15/16 08/15/16 Unknown History Propranolol LA [Inderal LA] 80 mg PO QAM 08/15/16 08/15/16 Unknown History Furosemide [Lasix TAB] 20 mg PO 3XW #1 08/17/16 08/15/16 Unknown Rx Gabapentin [Neurontin] 100 mg PO Q8HR #30 08/17/16 08/15/16 Unknown Rx traMADol [Ultram 50 MG tab] 50 mg PO Q6HR PRN #7 tablet 08/17/16 Unknown Rx Active Meds: Active Medications Acetaminophen (Tylenol) 650 mg PO Q6H PRN PRN Reason: Pain Al Hydrox/Mg Hydrox/Simethicone (Alum-Mag Hydrox-Simeth 853-290-03wt/5ml) 30 ml PO Q4H PRN PRN Reason: Indigestion Albuterol (Proventil) 2.5 mg IH Q4HRT PRN PRN Reason: Wheezing Apixaban (Eliquis) 5 mg PO Q12HR [facility] PRN Reason: Protocol Last Admin: 08/19/16 10:13 Dose: 5 mg Atorvastatin Calcium (Lipitor) 10 mg PO HS [facility] Last Admin: 08/18/16 22:23 Dose: Not Given Bisacodyl (Dulcolax) 10 mg OR QDAY PRN PRN Reason: constipation unrelieved by MOM Famotidine (Pepcid) 20 mg IV BID [facility] Last Admin: 08/19/16 10:12 Dose: 20 mg Furosemide (Lasix) 20 mg PO TuThSa [facility] Gabapentin (Neurontin) 100 mg PO Q8HR [facility] Last Admin: 08/18/16 22:23 Dose: Not Given Hydrophilic Ointment (Vaseline Lip Therapy) 1 applic TP Q2HR PRN PRN Reason: Dry Lips Fentanyl Citrate (Fentanyl Drip Premix) 2,000 mcg in 100 mls @ 3.969 mls/hr IV TITR INGRIS; 1 MCG/KG/HR PRN Reason: Protocol Last Titration: 08/19/16 10:00 Dose: 0 mcg/kg/hr, 0 mls/hr Propofol (Diprivan 10 Mg/Ml) 1,000 mg in 100 mls @ 2.381 mls/hr IV TITR INGRIS; 5 MCG/KG/MIN PRN Reason: Protocol Last Titration: 08/19/16 07:15 Dose: Infused Norepinephrine (Levophed Drip 4 Mg/Ns 250 Ml) 4 mg in 250 mls @ 7.5 mls/hr IV TITR INGRIS; 2 MCG/MIN PRN Reason: Protocol Last Titration: 08/19/16 10:15 Dose: 5 mcg/min, 18.75 mls/hr Levofloxacin/Dextrose (Levaquin 750mg/150ml) 750 mg in 150 mls @ 100 mls/hr IV Q24HR [facility] PRN Reason: Protocol Last Admin: 08/19/16 10:11 Dose: 100 mls/hr Piperacillin Sod/Tazobactam Sod (Zosyn/Ns 4.5gm/100ml) 4.5 gm in 100 mls @ 200 mls/hr IV Q6HR [facility] PRN Reason: Protocol Vancomycin HCl 1,250 mg/ (Sodium Chloride) 275 mls @ 166.667 mls/hr IV Q24H [facility] Sodium Chloride (Nacl 0.9% 1000 Ml) 1,000 mls @ 999 mls/hr IV Q1H [facility] Stop: 08/19/16 12:59 Loratadine (Claritin) 10 mg PO DAILY [facility] Last Admin: 08/19/16 10:14 Dose: 10 mg Magnesium Hydroxide (Milk Of Magnesia) 30 ml PO Q4H PRN PRN Reason: Constipation Methimazole (Tapazole) 10 mg PO QAM [facility] Last Admin: 08/19/16 10:13 Dose: 10 mg Mirtazapine (Remeron) 15 mg PO HS [facility] Last Admin: 08/18/16 22:24 Dose: Not Given Multi-Ingred Cream/Lotion/Oil/Oint (Artificial Tears Ophth Oint) 1 applic OU Q4HR PRN PRN Reason: Dry Eye(s) Propranolol HCl (Inderal La) 80 mg PO QAM [facility] Last Admin: 08/19/16 10:19 Dose: Not Given Tramadol HCl (Ultram) 50 mg PO Q6HR PRN PRN Reason: Pain Vancomycin HCl (Vancomycin Pharmacy To Dose) 1 each IV PKCONSULT [facility] PRN Reason: Protocol Review of Systems ROS unobtainable: due to endotracheal tube, due to mental status Physical Examination Vital signs: Vital Signs Temp Pulse Resp BP Pulse Ox 97.0 F L 102 H 18 102/70 97 08/18/16 19:00 08/18/16 19:00 08/18/16 19:00 08/18/16 19:00 08/18/16 19:00 General appearance: no acute distress, comatose Eyes: non-icteric ENT: other (orally intubated and critically ill on vent) Neck: supple Ascultation: Right: rales (base), Bilateral: clear Percussion: Bilateral: not dull Cardiovascular: regular rate and rhythm Gastrointestinal: normoactive bowel sounds unable to assess Results - Laboratory Findings CBC and BMP: 08/19/16 08:43 08/19/16 08:43 ABG POC ABG pH 7.521 (7.35-7.45) H 08/19/16 04:46 POC ABG pCO2 33.8 (35-45) L 08/19/16 04:46 POC ABG pO2 79 (80-105) L 08/19/16 04:46 POC ABG HCO3 27.7 08/19/16 04:46 POC ABG Total CO2 29 08/19/16 04:46 POC ABG O2 Sat 97 08/19/16 04:46 PT/INR, D-dimer PT 18.1 Sec. (12.2-14.9) H 08/18/16 20:44 INR 1.50 (0.87-1.13) H 08/18/16 20:44 Abnormal lab findings: Abnormal Labs 08/18/16 08/18/16 08/18/16 20:44 20:44 20:44 WBC 20.7 H MCH 26 L RDW 17.3 H Seg Neuts % (Manual) 71.0 H Lymphocytes % (Manual) 5.0 L Seg Neutrophils # Man 14.7 H Lymphocytes # (Manual) 1.0 L Monocytes # (Manual) 1.0 H PT 18.1 H INR 1.50 H POC ABG pH POC ABG pCO2 POC ABG pO2 Sodium Chloride Glucose POC Glucose Lactic Acid Calcium Urine WBC (Auto) 9.0 H 08/18/16 08/18/16 08/18/16 20:44 21:13 21:55 WBC MCH RDW Seg Neuts % (Manual) Lymphocytes % (Manual) Seg Neutrophils # Man Lymphocytes # (Manual) Monocytes # (Manual) PT INR POC ABG pH 7.569 H POC ABG pCO2 POC ABG pO2 182 H Sodium Chloride Glucose POC Glucose Lactic Acid 2.10 H* 2.40 H* Calcium Urine WBC (Auto) 08/19/16 08/19/16 08/19/16 01:20 01:28 04:46 WBC MCH RDW Seg Neuts % (Manual) Lymphocytes % (Manual) Seg Neutrophils # Man Lymphocytes # (Manual) Monocytes # (Manual) PT INR POC ABG pH 7.521 H POC ABG pCO2 33.8 L POC ABG pO2 79 L Sodium Chloride Glucose POC Glucose 114 H Lactic Acid 2.10 H* Calcium Urine WBC (Auto) 08/19/16 08/19/16 08/19/16 05:35 08:43 08:43 WBC 13.3 H MCH 26 L RDW 17.6 H Seg Neuts % (Manual) Lymphocytes % (Manual) Seg Neutrophils # Man Lymphocytes # (Manual) Monocytes # (Manual) PT INR POC ABG pH POC ABG pCO2 POC ABG pO2 Sodium 136 L Chloride 93.8 L Glucose 119 H POC Glucose 113 H Lactic Acid Calcium 8.0 L Urine WBC (Auto) 08/19/16 11:00 WBC MCH RDW Seg Neuts % (Manual) Lymphocytes % (Manual) Seg Neutrophils # Man Lymphocytes # (Manual) Monocytes # (Manual) PT INR POC ABG pH POC ABG pCO2 POC ABG pO2 Sodium Chloride Glucose POC Glucose Lactic Acid 2.70 H* Calcium Urine WBC (Auto) - Diagnostic Findings Chest x-ray: image reviewed (small right pleural effusion) Assessment and Plan 76 y/o with acute hypoxic respiratory failure and respiratory alkalosis with elevated white count and lactic acidosis 1. Given history of extensive clot in lower ext, IVC filter and new onset respiratory failure, feel that PE must be ruled out. Will order CTA, especially with hypotension 2. Will also order echo to evaluate right heart 3. If large PE present and right heart burden, may need intervention from IR, caviat is with recent stroke, will need to assess risk 4. Asked nursing to discontinue all sedation for now 5. Repeat lactic acid 6. Overall prognosis is guarded to poor. CCT 31 minutes.
[2016-08-19] MEDS: ZOSYN/NS 4.5GM/100ML 4.5 GM/100 ML VIAL IV SCH ×4 (12:10→18:51)
[2016-08-19] MEDS: NEURONTIN PO SCH ×2 (13:22→21:36)
[2016-08-19] MEDS: NACL 0.9% 1000 ML 1,000 ML IV SCH ×2 (13:23→13:25)
[2016-08-19] MEDS ORDERED: NACL ONE (13:50)
--- NOTE | 2016-08-19 14:21 | XRay Report ---
AP CHEST: HISTORY: Hypoxemia The endotracheal tube, nasogastric tube, right arm PICC and pacemaker device remains in good position. There is mild rotation to the right. Heart and mediastinal structures are within normal limits. The lungs are hyperinflated consistent with underlying emphysematous changes. A small right pleural effusion and segmental atelectasis at the right lung base is identified which has improved since yesterday's exam. The left lung remains clear.
--- NOTE | 2016-08-19 15:05 | Cat Scan Report ---
CTA CHEST: History: Chest pain, hypoxemia, hypotension Technique: Helical CT following IV contrast. Pulmonary embolus protocol. Sagittal and coronal reformatted images. Rotational MIP images. Findings: Contrast bolus is satisfactory. No pulmonary embolus is identified. Mild bibasilar infiltrates are suspected. Small right pleural effusion. Correlate for pneumonia or aspiration. The remainder the lungs are clear. There is mild enlargement and heterogeneity left lobe. The right thyroid lobe is atrophic or surgically removed. An endotracheal tube is in position. The tracheobronchial tree, esophagus, heart, pericardium, mediastinal vessels, and bony thorax are unremarkable. Impression: No pulmonary embolus is identified. Bibasilar infiltrates. Small right pleural effusion.
[2016-08-19] MEDS: REMERON PO SCH (21:32)
[2016-08-19] MEDS: VANCOMYCIN 1,250 MG in NACL 0.9% 250ML 250 ML IV SCH (21:36)
[2016-08-20] MEDS: LEVOPHED DRIP 4 MG/NS 250 ML 4 MG/250 ML BAG IV SCH ×2 (01:47→22:51)
[2016-08-20] MEDS: ZOSYN/NS 4.5GM/100ML 4.5 GM/100 ML VIAL IV SCH ×5 (01:50→23:45)
[2016-08-20 04:39] LABS: ISTAT Base Excess 5; ISTAT HCO3 28.2; ISTAT PCO2 36.3 (35-45); ISTAT PH 7.498 (7.35-7.45); ISTAT PO2 93 (80-105); ISTAT SO2 98; ISTAT TCO2 29
[2016-08-20] MEDS: NEURONTIN PO SCH ×4 (04:57→22:08)
[2016-08-20 05:26] LABS: Hematocrit 33.5 % (30.3-42.9); Hemoglobin 10.5 gm/dl (10.1-14.3); Mean Corpuscular HGB Conc 32 % (30-34); Mean Corpuscular Volume 82 fl (79-97); Platelet Count 273 K/mm3 (140-440); Red Blood Count 4.07 M/mm3 (3.65-5.03); White Blood Count 14.9 K/mm3 (4.5-11.0)
[2016-08-20 05:31] LABS: Mean Corpuscular Hemoglobin 26 pg (28-32)
[2016-08-20 05:47] LABS: Anion Gap 17 mmol/L; Blood Urea Nitrogen 18 mg/dL (7-17); Calcium 7.9 mg/dL (8.4-10.2); Carbon Dioxide 28 mmol/L (22-30); Chloride 97.2 mmol/L (98-107); Glucose 105 mg/dL (65-100); Potassium 3.6 mmol/L (3.6-5.0); Sodium 139 mmol/L (137-145)
--- NOTE | 2016-08-20 09:02 | Progress Note ---
Assessment and Plan Assessment and plan: Acute respiratory failure. Admitted to ICU. She is still intubated. Pulmonology following. 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 On Eliquis History of pulmonary embolism. Has been on Eliquis. Repeat CT Angio chest negative for new pulmonary embolism Chronic CHF. Hyperthyroidsm. Hypertension. BP stable History of recent stroke Full code status History Interval history: Patient with acute respiratory failure, still intubated Hospitalist Physical - Physical exam Narrative exam: Gen: appearance : Intubated, HEENT: normocephalic, atraumatic Neck :supple no JVD Lungs: clear to auscultation bilaterally, no crackles, or wheezes Heart:S1 and S2 regular, no murmurs, no gallop, no rubs Abdomen soft, non-tender, non-distended, normal bowel sounds Extremities: no edema, no clubbing, or cyanosis Neuro : Intubated, sedated - Constitutional Vitals: Temp Pulse Resp BP Pulse Ox 98.8 F 75 16 114/67 100 08/20/16 04:05 08/20/16 08:00 08/20/16 08:00 08/20/16 08:00 08/20/16 08:00 General appearance: Present: severe distress Results - Labs CBC & Chem 7: 08/20/16 04:00 08/20/16 04:00 Labs: Laboratory Last Values WBC 14.9 K/mm3 (4.5-11.0) H 08/20/16 04:00 RBC 4.07 M/mm3 (3.65-5.03) 08/20/16 04:00 Hgb 10.5 gm/dl (10.1-14.3) 08/20/16 04:00 Hct 33.5 % (30.3-42.9) 08/20/16 04:00 MCV 82 fl (79-97) 08/20/16 04:00 MCH 26 pg (28-32) L 08/20/16 04:00 MCHC 32 % (30-34) 08/20/16 04:00 RDW 18.0 % (13.2-15.2) H 08/20/16 04:00 Plt Count 273 K/mm3 (140-440) 08/20/16 04:00 Add Manual Diff Complete 08/18/16 20:44 Total Counted 100 08/18/16 20:44 Seg Neutrophils % E Learning Coordinator 08/18/16 20:44 Seg Neuts % (Manual) 71.0 % (40.0-70.0) H 08/18/16 20:44 Band Neutrophils % 19.0 % 08/18/16 20:44 Lymphocytes % (Manual) 5.0 % (13.4-35.0) L 08/18/16 20:44 Reactive Lymphs % (Man) 0 % 08/18/16 20:44 Monocytes % (Manual) 5.0 % (0.0-7.3) 08/18/16 20:44 Eosinophils % (Manual) 0 % (0.0-4.3) 08/18/16 20:44 Basophils % (Manual) 0 % (0.0-1.8) 08/18/16 20:44 Metamyelocytes % 0 % 08/18/16 20:44 Myelocytes % 0 % 08/18/16 20:44 Promyelocytes % 0 % 08/18/16 20:44 Blast Cells % 0 % 08/18/16 20:44 Nucleated RBC % Not Reportable 08/18/16 20:44 Seg Neutrophils # Man 14.7 K/mm3 (1.8-7.7) H 08/18/16 20:44 Band Neutrophils # 3.9 K/mm3 08/18/16 20:44 Lymphocytes # (Manual) 1.0 K/mm3 (1.2-5.4) L 08/18/16 20:44 Abs React Lymphs (Man) 0.0 K/mm3 08/18/16 20:44 Monocytes # (Manual) 1.0 K/mm3 (0.0-0.8) H 08/18/16 20:44 Eosinophils # (Manual) 0.0 K/mm3 (0.0-0.4) 08/18/16 20:44 Basophils # (Manual) 0.0 K/mm3 (0.0-0.1) 08/18/16 20:44 Metamyelocytes # 0.0 K/mm3 08/18/16 20:44 Myelocytes # 0.0 K/mm3 08/18/16 20:44 Promyelocytes # 0.0 K/mm3 08/18/16 20:44 Blast Cells # 0.0 K/mm3 08/18/16 20:44 WBC Morphology Not Reportable 08/18/16 20:44 Hypersegmented Neuts Not Reportable 08/18/16 20:44 Hyposegmented Neuts Not Reportable 08/18/16 20:44 Hypogranular Neuts Not Reportable 08/18/16 20:44 Smudge Cells Not Reportable 08/18/16 20:44 Toxic Granulation Not Reportable 08/18/16 20:44 Toxic Vacuolation Not Reportable 08/18/16 20:44 Dohle Bodies Not Reportable 08/18/16 20:44 Pelger-Huet Anomaly Not Reportable 08/18/16 20:44 Alberto Rods Not Reportable 08/18/16 20:44 Platelet Estimate Consistent w auto 08/18/16 20:44 Clumped Platelets Not Reportable 08/18/16 20:44 Plt Clumps, EDTA Not Reportable 08/18/16 20:44 Large Platelets Not Reportable 08/18/16 20:44 Giant Platelets Not Reportable 08/18/16 20:44 Platelet Satelliting Not Reportable 08/18/16 20:44 Plt Morphology Comment Not Reportable 08/18/16 20:44 RBC Morphology Not Reportable 08/18/16 20:44 Dimorphic RBCs Not Reportable 08/18/16 20:44 Polychromasia Not Reportable 08/18/16 20:44 Hypochromasia 1+ 08/18/16 20:44 Poikilocytosis Not Reportable 08/18/16 20:44 Anisocytosis 1+ 08/18/16 20:44 Microcytosis Not Reportable 08/18/16 20:44 Macrocytosis Not Reportable 08/18/16 20:44 Spherocytes Not Reportable 08/18/16 20:44 Pappenheimer Bodies Not Reportable 08/18/16 20:44 Sickle Cells Not Reportable 08/18/16 20:44 Target Cells Not Reportable 08/18/16 20:44 Tear Drop Cells Not Reportable 08/18/16 20:44 Ovalocytes Few 08/18/16 20:44 Helmet Cells Not Reportable 08/18/16 20:44 Alvarez-[place] Bodies Not Reportable 08/18/16 20:44 [place] Rings Not Reportable 08/18/16 20:44 Valerie Cells Not Reportable 08/18/16 20:44 Bite Cells Not Reportable 08/18/16 20:44 Crenated Cell Not Reportable 08/18/16 20:44 Elliptocytes Not Reportable 08/18/16 20:44 Acanthocytes (Spur) Not Reportable 08/18/16 20:44 Rouleaux Not Reportable 08/18/16 20:44 Hemoglobin C Crystals Not Reportable 08/18/16 20:44 Schistocytes Not Reportable 08/18/16 20:44 Malaria parasites Not Reportable 08/18/16 20:44 Gino Bodies Not Reportable 08/18/16 20:44 Hem Pathologist Commnt No 08/18/16 20:44 PT 18.1 Sec. (12.2-14.9) H 08/18/16 20:44 INR 1.50 (0.87-1.13) H 08/18/16 20:44 APTT 28.6 Sec. (24.2-36.6) 08/18/16 20:44 POC ABG pH 7.498 (7.35-7.45) H 08/20/16 04:31 POC ABG pCO2 36.3 (35-45) 08/20/16 04:31 POC ABG pO2 93 (80-105) 08/20/16 04:31 POC ABG HCO3 28.2 08/20/16 04:31 POC ABG Total CO2 29 08/20/16 04:31 POC ABG O2 Sat 98 08/20/16 04:31 POC ABG Base Excess 5 08/20/16 04:31 FiO2 30 % 08/20/16 04:31 Sodium 139 mmol/L (137-145) 08/20/16 04:00 Potassium 3.6 mmol/L (3.6-5.0) 08/20/16 04:00 Chloride 97.2 mmol/L (98-107) L 08/20/16 04:00 Carbon Dioxide 28 mmol/L (22-30) 08/20/16 04:00 Anion Gap 17 mmol/L 08/20/16 04:00 BUN 18 mg/dL (7-17) H 08/20/16 04:00 Creatinine 0.8 mg/dL (0.7-1.2) 08/20/16 04:00 Estimated GFR > 60 ml/min 08/20/16 04:00 BUN/Creatinine Ratio 22.50 % 08/20/16 04:00 Glucose 105 mg/dL (65-100) H 08/20/16 04:00 POC Glucose 113 (70-105) H 08/19/16 05:35 Lactic Acid 2.70 mmol/L (0.7-2.0) H* 08/19/16 11:00 Calcium 7.9 mg/dL (8.4-10.2) L 08/20/16 04:00 Magnesium 2.30 mg/dL (1.7-2.3) 08/18/16 19:46 Total Bilirubin 0.40 mg/dL (0.1-1.2) 08/18/16 19:46 AST 11 units/L (5-40) 08/18/16 19:46 ALT 29 units/L (7-56) 08/18/16 19:46 Alkaline Phosphatase 95 units/L (35-129) 08/18/16 19:46 Troponin T < 0.010 ng/mL (0.00-0.029) 08/18/16 19:46 NT-Pro-B Natriuret Pep 440.6 pg/mL (0-900) 08/18/16 19:46 Total Protein 6.8 g/dL (6.3-8.2) 08/18/16 19:46 Albumin 2.9 g/dL (3.9-5) L 08/18/16 19:46 Albumin/Globulin Ratio 0.7 % 08/18/16 19:46 Urine Color Yellow (Yellow) 08/18/16 20:44 Urine Turbidity Slightly-cloudy (Clear) 08/18/16 20:44 Urine pH 6.0 (5.0-7.0) 08/18/16 20:44 Ur Specific [place] 1.012 (1.003-1.030) 08/18/16 20:44 Urine Protein 100 mg/dl mg/dL (Negative) 08/18/16 20:44 Urine Glucose (UA) Neg mg/dL (Negative) 08/18/16 20:44 Urine Ketones Neg mg/dL (Negative) 08/18/16 20:44 Urine Blood Lg (Negative) 08/18/16 20:44 Urine Nitrite Neg (Negative) 08/18/16 20:44 Urine Bilirubin Neg (Negative) 08/18/16 20:44 Urine Urobilinogen < 2.0 mg/dL (<2.0) 08/18/16 20:44 Ur Leukocyte Esterase Neg (Negative) 08/18/16 20:44 Urine WBC (Auto) 9.0 /HPF (0.0-6.0) H 08/18/16 20:44 Urine RBC (Auto) 25.0 /HPF (0.0-6.0) 08/18/16 20:44 U Epithel Cells (Auto) < 1.0 /HPF (0-13.0) 08/18/16 20:44 Urine Bacteria (Auto) 1+ /HPF (Negative) 08/18/16 20:44 Urine Mucus Few /HPF 08/18/16 20:44
[2016-08-20] MEDS: ELIQUIS PO SCH ×2 (09:30→22:09)
[2016-08-20] MEDS: PEPCID IV SCH ×2 (09:30→22:06)
[2016-08-20] MEDS: LASIX PO SCH (09:31)
[2016-08-20] MEDS: CLARITIN PO SCH (09:31)
[2016-08-20] MEDS: TAPAZOLE PO SCH (09:31)
[2016-08-20] MEDS: LEVAQUIN 750MG/150ML 750 MG/150 ML BAG IV SCH (09:48)
[2016-08-20] MEDS: INDERAL LA PO SCH (10:55)
--- NOTE | 2016-08-20 16:01 | Progress Note ---
Assessment and Plan 76 y/o with acute hypoxic respiratory failure and respiratory alkalosis with elevated white count and lactic acidosis 1. PE study was negative. 2. Echo ordered but not complete 3. Attempt to hold all sedation 4. Wean pressors for MAPs >65 5. Lactic Acid still Elevated, no cause seen from our evaluation 6. Overall prognosis is guarded to poor. CCT 31 minutes. Subjective Date of service: 08/20/16 Interval history: Sedation was restarted on last night. Off now this am. patient awake but not following commands. Attempted PSV of 8, TV low 200's high 100's. No family at bedside. Objective Vital Signs - 12hr 08/20/16 08/20/16 08/20/16 04:00 04:05 04:11 Temperature 98.8 F Pulse Rate 73 73 Respiratory 16 16 Rate Blood Pressure 121/72 121/72 O2 Sat by Pulse 100 100 Oximetry 08/20/16 08/20/16 08/20/16 04:21 04:30 04:31 Temperature Pulse Rate 76 76 73 Respiratory 16 16 Rate Blood Pressure 121/72 99/52 121/72 O2 Sat by Pulse 98 99 99 Oximetry 08/20/16 08/20/16 08/20/16 04:41 04:51 05:00 Temperature Pulse Rate 73 73 76 Respiratory 16 16 16 Rate Blood Pressure 99/52 99/52 114/79 O2 Sat by Pulse 100 100 99 Oximetry 08/20/16 08/20/16 08/20/16 05:11 05:21 05:31 Temperature Pulse Rate 73 73 76 Respiratory 16 16 16 Rate Blood Pressure 114/79 114/79 124/62 O2 Sat by Pulse 100 100 99 Oximetry 08/20/16 08/20/16 08/20/16 05:40 05:41 05:51 Temperature Pulse Rate 76 73 73 Respiratory 17 16 Rate Blood Pressure 124/62 124/62 O2 Sat by Pulse 100 100 100 Oximetry 08/20/16 08/20/16 08/20/16 06:01 06:11 06:21 Temperature Pulse Rate 73 73 73 Respiratory 16 16 16 Rate Blood Pressure 127/50 124/62 124/62 O2 Sat by Pulse 98 100 100 Oximetry 08/20/16 08/20/16 08/20/16 06:30 06:41 06:51 Temperature Pulse Rate 73 76 75 Respiratory 16 16 16 Rate Blood Pressure 111/54 127/50 127/50 O2 Sat by Pulse 99 100 100 Oximetry 08/20/16 08/20/16 08/20/16 07:00 07:15 07:30 Temperature Pulse Rate 72 73 74 Respiratory 16 16 16 Rate Blood Pressure 129/72 111/54 134/73 O2 Sat by Pulse 99 100 99 Oximetry 08/20/16 08/20/16 08/20/16 07:45 07:52 08:00 Temperature Pulse Rate 76 71 75 Respiratory 16 16 Rate Blood Pressure 134/73 134/73 114/67 O2 Sat by Pulse 100 100 100 Oximetry 08/20/16 08/20/16 08/20/16 08:10 08:15 08:30 Temperature Pulse Rate 73 73 Respiratory 16 16 16 Rate Blood Pressure 102/57 113/63 O2 Sat by Pulse 100 99 Oximetry 08/20/16 08/20/16 08/20/16 08:45 09:00 09:15 Temperature Pulse Rate 73 83 92 H Respiratory 16 16 16 Rate Blood Pressure 115/60 118/65 112/81 O2 Sat by Pulse 99 Oximetry 08/20/16 08/20/16 08/20/16 09:31 09:45 10:00 Temperature Pulse Rate 78 74 75 Respiratory 16 17 16 Rate Blood Pressure 113/62 111/78 110/65 O2 Sat by Pulse 99 100 99 Oximetry 08/20/16 08/20/16 08/20/16 10:15 10:30 10:45 Temperature Pulse Rate 76 73 84 Respiratory 16 16 16 Rate Blood Pressure 110/65 80/46 86/56 O2 Sat by Pulse 99 98 Oximetry 08/20/16 08/20/16 08/20/16 10:55 11:00 11:15 Temperature Pulse Rate 72 76 76 Respiratory 16 16 Rate Blood Pressure 86/56 93/66 98/56 O2 Sat by Pulse 100 100 Oximetry 08/20/16 08/20/16 08/20/16 11:30 11:44 11:45 Temperature Pulse Rate 72 72 76 Respiratory 16 16 Rate Blood Pressure 86/55 86/56 96/57 O2 Sat by Pulse 99 99 99 Oximetry 08/20/16 08/20/16 08/20/16 12:00 12:15 12:31 Temperature Pulse Rate 75 76 76 Respiratory 16 16 16 Rate Blood Pressure 104/63 104/63 122/59 O2 Sat by Pulse 100 99 100 Oximetry 08/20/16 08/20/16 08/20/16 12:45 13:00 13:15 Temperature Pulse Rate 75 76 73 Respiratory 16 16 16 Rate Blood Pressure 120/75 124/59 124/59 O2 Sat by Pulse 99 100 99 Oximetry 08/20/16 08/20/16 08/20/16 13:30 13:45 14:00 Temperature Pulse Rate 73 73 74 Respiratory 16 16 15 Rate Blood Pressure 113/62 109/65 109/56 O2 Sat by Pulse 99 100 100 Oximetry 08/20/16 08/20/16 08/20/16 14:15 14:31 14:45 Temperature Pulse Rate 74 74 75 Respiratory 16 16 16 Rate Blood Pressure 109/56 137/112 113/60 O2 Sat by Pulse 99 95 99 Oximetry 08/20/16 08/20/16 08/20/16 15:01 15:15 15:47 Temperature Pulse Rate 82 77 77 Respiratory 18 16 Rate Blood Pressure 122/65 118/56 118/56 O2 Sat by Pulse 100 100 100 Oximetry Constitutional: no acute distress Eyes: non-icteric ENT: other (orally intubated and critically ill on vent) Neck: supple Ascultation: Right: rales (base), Bilateral: clear Percussion: Bilateral: not dull Cardiovascular: regular rate and rhythm Gastrointestinal: normoactive bowel sounds Neurologic: unable to assess CBC and BMP: 08/20/16 04:00 08/20/16 04:00 ABG, PT/INR, D-dimer: ABG POC ABG pH 7.498 (7.35-7.45) H 08/20/16 04:31 POC ABG pCO2 36.3 (35-45) 08/20/16 04:31 POC ABG pO2 93 (80-105) 08/20/16 04:31 POC ABG HCO3 28.2 08/20/16 04:31 POC ABG Total CO2 29 08/20/16 04:31 POC ABG O2 Sat 98 08/20/16 04:31 PT/INR, D-dimer PT 18.1 Sec. (12.2-14.9) H 08/18/16 20:44 INR 1.50 (0.87-1.13) H 08/18/16 20:44 Abnormal lab findings: Abnormal Labs 08/18/16 08/18/16 08/18/16 20:44 20:44 20:44 WBC 20.7 H MCH 26 L RDW 17.3 H Seg Neuts % (Manual) 71.0 H Lymphocytes % (Manual) 5.0 L Seg Neutrophils # Man 14.7 H Lymphocytes # (Manual) 1.0 L Monocytes # (Manual) 1.0 H PT 18.1 H INR 1.50 H POC ABG pH POC ABG pCO2 POC ABG pO2 Sodium Chloride BUN Glucose POC Glucose Lactic Acid Calcium Urine WBC (Auto) 9.0 H 08/18/16 08/18/16 08/18/16 20:44 21:13 21:55 WBC MCH RDW Seg Neuts % (Manual) Lymphocytes % (Manual) Seg Neutrophils # Man Lymphocytes # (Manual) Monocytes # (Manual) PT INR POC ABG pH 7.569 H POC ABG pCO2 POC ABG pO2 182 H Sodium Chloride BUN Glucose POC Glucose Lactic Acid 2.10 H* 2.40 H* Calcium Urine WBC (Auto) 08/19/16 08/19/16 08/19/16 01:20 01:28 04:46 WBC MCH RDW Seg Neuts % (Manual) Lymphocytes % (Manual) Seg Neutrophils # Man Lymphocytes # (Manual) Monocytes # (Manual) PT INR POC ABG pH 7.521 H POC ABG pCO2 33.8 L POC ABG pO2 79 L Sodium Chloride BUN Glucose POC Glucose 114 H Lactic Acid 2.10 H* Calcium Urine WBC (Auto) 08/19/16 08/19/16 08/19/16 05:35 08:43 08:43 WBC 13.3 H MCH 26 L RDW 17.6 H Seg Neuts % (Manual) Lymphocytes % (Manual) Seg Neutrophils # Man Lymphocytes # (Manual) Monocytes # (Manual) PT INR POC ABG pH POC ABG pCO2 POC ABG pO2 Sodium 136 L Chloride 93.8 L BUN Glucose 119 H POC Glucose 113 H Lactic Acid Calcium 8.0 L Urine WBC (Auto) 08/19/16 08/20/16 08/20/16 11:00 04:00 04:00 WBC 14.9 H MCH 26 L RDW 18.0 H Seg Neuts % (Manual) Lymphocytes % (Manual) Seg Neutrophils # Man Lymphocytes # (Manual) Monocytes # (Manual) PT INR POC ABG pH POC ABG pCO2 POC ABG pO2 Sodium Chloride 97.2 L BUN 18 H Glucose 105 H POC Glucose Lactic Acid 2.70 H* Calcium 7.9 L Urine WBC (Auto) 08/20/16 08/20/16 04:31 11:25 WBC MCH RDW Seg Neuts % (Manual) Lymphocytes % (Manual) Seg Neutrophils # Man Lymphocytes # (Manual) Monocytes # (Manual) PT INR POC ABG pH 7.498 H POC ABG pCO2 POC ABG pO2 Sodium Chloride BUN Glucose POC Glucose 110 H Lactic Acid Calcium Urine WBC (Auto)
[2016-08-20] MEDS: REMERON PO SCH (22:00)
[2016-08-20] MEDS: ULTRAM PO PRN (22:07)
[2016-08-20] MEDS: fentaNYL DRIP Premix 2,000 MCG/100 ML BAG IV SCH (22:40)
[2016-08-20] MEDS: VANCOMYCIN 1,250 MG in NACL 0.9% 250ML 250 ML IV SCH (23:44)
[2016-08-21 05:07] LABS: ISTAT Base Excess 4; ISTAT HCO3 27.6; ISTAT PCO2 37.6 (35-45); ISTAT PH 7.473 (7.35-7.45); ISTAT PO2 116 (80-105); ISTAT SO2 99; ISTAT TCO2 29
[2016-08-21 05:20] LABS: Hematocrit 32.5 % (30.3-42.9); Hemoglobin 10.2 gm/dl (10.1-14.3); Mean Corpuscular HGB Conc 32 % (30-34); Mean Corpuscular Volume 82 fl (79-97); Platelet Count 254 K/mm3 (140-440); Red Blood Count 3.94 M/mm3 (3.65-5.03); Red Cell Distribution Width 18.1 % (13.2-15.2); White Blood Count 13.7 K/mm3 (4.5-11.0)
[2016-08-21 05:21] LABS: Mean Corpuscular Hemoglobin 26 pg (28-32)
[2016-08-21] MEDS: ZOSYN/NS 4.5GM/100ML 4.5 GM/100 ML VIAL IV SCH ×3 (05:41→18:31)
[2016-08-21] MEDS: NEURONTIN PO SCH ×3 (05:41→22:08)
[2016-08-21 05:47] LABS: Anion Gap 19 mmol/L; BUN/Creatinine Ratio 21.25; Blood Urea Nitrogen 17 mg/dL (7-17); Carbon Dioxide 27 mmol/L (22-30); Chloride 98.9 mmol/L (98-107); Glucose 82 mg/dL (65-100); Potassium 3.5 mmol/L (3.6-5.0); Sodium 141 mmol/L (137-145)
--- NOTE | 2016-08-21 09:36 | Progress Note ---
Assessment and Plan Assessment and plan: Acute respiratory failure. Admitted to ICU. She is still intubated. Pulmonology following. 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 On Eliquis History of pulmonary embolism. Has been on Eliquis. Repeat CT Angio chest negative for new pulmonary embolism Chronic CHF. Continuie Lasix Hyperthyroidsm. Hypertension. BP stable History of recent stroke Full code status Hopefully extubate soon History Interval history: Patient with acute respiratory failure, still intubated, No fever Hospitalist Physical - Physical exam Narrative exam: Gen appearance : Intubated, HEENT: normocephalic, atraumatic Neck :supple no JVD Lungs: clear to auscultation bilaterally, no crackles, or wheezes Heart:S1 and S2 regular, no murmurs, no gallop, no rubs Abdomen soft, non-tender, non-distended, normal bowel sounds Extremities: no edema, no clubbing, or cyanosis Neuro : Intubated, off sedation ,awake,follows commands - Constitutional Vitals: Temp Pulse Resp BP Pulse Ox 98.9 F 70 12 127/58 97 08/21/16 08:00 08/21/16 08:30 08/21/16 08:30 08/21/16 08:30 08/21/16 08:30 General appearance: Present: severe distress Results - Labs CBC & Chem 7: 08/21/16 05:00 08/21/16 05:00 Labs: Laboratory Last Values WBC 13.7 K/mm3 (4.5-11.0) H 08/21/16 05:00 RBC 3.94 M/mm3 (3.65-5.03) 08/21/16 05:00 Hgb 10.2 gm/dl (10.1-14.3) 08/21/16 05:00 Hct 32.5 % (30.3-42.9) 08/21/16 05:00 MCV 82 fl (79-97) 08/21/16 05:00 MCH 26 pg (28-32) L 08/21/16 05:00 MCHC 32 % (30-34) 08/21/16 05:00 RDW 18.1 % (13.2-15.2) H 08/21/16 05:00 Plt Count 254 K/mm3 (140-440) 08/21/16 05:00 Add Manual Diff Complete 08/18/16 20:44 Total Counted 100 08/18/16 20:44 Seg Neutrophils % Batter Depositor 08/18/16 20:44 Seg Neuts % (Manual) 71.0 % (40.0-70.0) H 08/18/16 20:44 Band Neutrophils % 19.0 % 08/18/16 20:44 Lymphocytes % (Manual) 5.0 % (13.4-35.0) L 08/18/16 20:44 Reactive Lymphs % (Man) 0 % 08/18/16 20:44 Monocytes % (Manual) 5.0 % (0.0-7.3) 08/18/16 20:44 Eosinophils % (Manual) 0 % (0.0-4.3) 08/18/16 20:44 Basophils % (Manual) 0 % (0.0-1.8) 08/18/16 20:44 Metamyelocytes % 0 % 08/18/16 20:44 Myelocytes % 0 % 08/18/16 20:44 Promyelocytes % 0 % 08/18/16 20:44 Blast Cells % 0 % 08/18/16 20:44 Nucleated RBC % Not Reportable 08/18/16 20:44 Seg Neutrophils # Man 14.7 K/mm3 (1.8-7.7) H 08/18/16 20:44 Band Neutrophils # 3.9 K/mm3 08/18/16 20:44 Lymphocytes # (Manual) 1.0 K/mm3 (1.2-5.4) L 08/18/16 20:44 Abs React Lymphs (Man) 0.0 K/mm3 08/18/16 20:44 Monocytes # (Manual) 1.0 K/mm3 (0.0-0.8) H 08/18/16 20:44 Eosinophils # (Manual) 0.0 K/mm3 (0.0-0.4) 08/18/16 20:44 Basophils # (Manual) 0.0 K/mm3 (0.0-0.1) 08/18/16 20:44 Metamyelocytes # 0.0 K/mm3 08/18/16 20:44 Myelocytes # 0.0 K/mm3 08/18/16 20:44 Promyelocytes # 0.0 K/mm3 08/18/16 20:44 Blast Cells # 0.0 K/mm3 08/18/16 20:44 WBC Morphology Not Reportable 08/18/16 20:44 Hypersegmented Neuts Not Reportable 08/18/16 20:44 Hyposegmented Neuts Not Reportable 08/18/16 20:44 Hypogranular Neuts Not Reportable 08/18/16 20:44 Smudge Cells Not Reportable 08/18/16 20:44 Toxic Granulation Not Reportable 08/18/16 20:44 Toxic Vacuolation Not Reportable 08/18/16 20:44 Dohle Bodies Not Reportable 08/18/16 20:44 Pelger-Huet Anomaly Not Reportable 08/18/16 20:44 Alberto Rods Not Reportable 08/18/16 20:44 Platelet Estimate Consistent w auto 08/18/16 20:44 Clumped Platelets Not Reportable 08/18/16 20:44 Plt Clumps, EDTA Not Reportable 08/18/16 20:44 Large Platelets Not Reportable 08/18/16 20:44 Giant Platelets Not Reportable 08/18/16 20:44 Platelet Satelliting Not Reportable 08/18/16 20:44 Plt Morphology Comment Not Reportable 08/18/16 20:44 RBC Morphology Not Reportable 08/18/16 20:44 Dimorphic RBCs Not Reportable 08/18/16 20:44 Polychromasia Not Reportable 08/18/16 20:44 Hypochromasia 1+ 08/18/16 20:44 Poikilocytosis Not Reportable 08/18/16 20:44 Anisocytosis 1+ 08/18/16 20:44 Microcytosis Not Reportable 08/18/16 20:44 Macrocytosis Not Reportable 08/18/16 20:44 Spherocytes Not Reportable 08/18/16 20:44 Pappenheimer Bodies Not Reportable 08/18/16 20:44 Sickle Cells Not Reportable 08/18/16 20:44 Target Cells Not Reportable 08/18/16 20:44 Tear Drop Cells Not Reportable 08/18/16 20:44 Ovalocytes Few 08/18/16 20:44 Helmet Cells Not Reportable 08/18/16 20:44 Alvarez-[place] Bodies Not Reportable 08/18/16 20:44 [place] Rings Not Reportable 08/18/16 20:44 Valerie Cells Not Reportable 08/18/16 20:44 Bite Cells Not Reportable 08/18/16 20:44 Crenated Cell Not Reportable 08/18/16 20:44 Elliptocytes Not Reportable 08/18/16 20:44 Acanthocytes (Spur) Not Reportable 08/18/16 20:44 Rouleaux Not Reportable 08/18/16 20:44 Hemoglobin C Crystals Not Reportable 08/18/16 20:44 Schistocytes Not Reportable 08/18/16 20:44 Malaria parasites Not Reportable 08/18/16 20:44 Gino Bodies Not Reportable 08/18/16 20:44 Hem Pathologist Commnt No 08/18/16 20:44 PT 18.1 Sec. (12.2-14.9) H 08/18/16 20:44 INR 1.50 (0.87-1.13) H 08/18/16 20:44 APTT 28.6 Sec. (24.2-36.6) 08/18/16 20:44 POC ABG pH 7.473 (7.35-7.45) H 08/21/16 04:58 POC ABG pCO2 37.6 (35-45) 08/21/16 04:58 POC ABG pO2 116 (80-105) H 08/21/16 04:58 POC ABG HCO3 27.6 08/21/16 04:58 POC ABG Total CO2 29 08/21/16 04:58 POC ABG O2 Sat 99 08/21/16 04:58 POC ABG Base Excess 4 08/21/16 04:58 FiO2 30 % 08/21/16 04:58 Sodium 141 mmol/L (137-145) 08/21/16 05:00 Potassium 3.5 mmol/L (3.6-5.0) L 08/21/16 05:00 Chloride 98.9 mmol/L (98-107) 08/21/16 05:00 Carbon Dioxide 27 mmol/L (22-30) 08/21/16 05:00 Anion Gap 19 mmol/L 08/21/16 05:00 BUN 17 mg/dL (7-17) 08/21/16 05:00 Creatinine 0.8 mg/dL (0.7-1.2) 08/21/16 05:00 Estimated GFR > 60 ml/min 08/21/16 05:00 BUN/Creatinine Ratio 21.25 % 08/21/16 05:00 Glucose 82 mg/dL (65-100) 08/21/16 05:00 POC Glucose 110 (70-105) H 08/20/16 11:25 Lactic Acid 2.70 mmol/L (0.7-2.0) H* 08/19/16 11:00 Calcium 8.0 mg/dL (8.4-10.2) L 08/21/16 05:00 Magnesium 2.30 mg/dL (1.7-2.3) 08/18/16 19:46 Total Bilirubin 0.40 mg/dL (0.1-1.2) 08/18/16 19:46 AST 11 units/L (5-40) 08/18/16 19:46 ALT 29 units/L (7-56) 08/18/16 19:46 Alkaline Phosphatase 95 units/L (35-129) 08/18/16 19:46 Troponin T < 0.010 ng/mL (0.00-0.029) 08/18/16 19:46 NT-Pro-B Natriuret Pep 440.6 pg/mL (0-900) 08/18/16 19:46 Total Protein 6.8 g/dL (6.3-8.2) 08/18/16 19:46 Albumin 2.9 g/dL (3.9-5) L 08/18/16 19:46 Albumin/Globulin Ratio 0.7 % 08/18/16 19:46 Urine Color Yellow (Yellow) 08/18/16 20:44 Urine Turbidity Slightly-cloudy (Clear) 08/18/16 20:44 Urine pH 6.0 (5.0-7.0) 08/18/16 20:44 Ur Specific [place] 1.012 (1.003-1.030) 08/18/16 20:44 Urine Protein 100 mg/dl mg/dL (Negative) 08/18/16 20:44 Urine Glucose (UA) Neg mg/dL (Negative) 08/18/16 20:44 Urine Ketones Neg mg/dL (Negative) 08/18/16 20:44 Urine Blood Lg (Negative) 08/18/16 20:44 Urine Nitrite Neg (Negative) 08/18/16 20:44 Urine Bilirubin Neg (Negative) 08/18/16 20:44 Urine Urobilinogen < 2.0 mg/dL (<2.0) 08/18/16 20:44 Ur Leukocyte Esterase Neg (Negative) 08/18/16 20:44 Urine WBC (Auto) 9.0 /HPF (0.0-6.0) H 08/18/16 20:44 Urine RBC (Auto) 25.0 /HPF (0.0-6.0) 08/18/16 20:44 U Epithel Cells (Auto) < 1.0 /HPF (0-13.0) 08/18/16 20:44 Urine Bacteria (Auto) 1+ /HPF (Negative) 08/18/16 20:44 Urine Mucus Few /HPF 08/18/16 20:44
[2016-08-21] MEDS: LEVAQUIN 750MG/150ML 750 MG/150 ML BAG IV SCH (09:40)
[2016-08-21] MEDS: CLARITIN PO SCH (09:41)
[2016-08-21] MEDS: ELIQUIS PO SCH ×2 (09:41→22:07)
[2016-08-21] MEDS: TAPAZOLE PO SCH (09:41)
[2016-08-21] MEDS: PEPCID IV SCH ×2 (09:42→22:07)
[2016-08-21] MEDS ORDERED: LASIX IV ONE (13:08)
--- NOTE | 2016-08-21 13:13 | Progress Note ---
Assessment and Plan 76 y/o with acute hypoxic respiratory failure and respiratory alkalosis with elevated white count and lactic acidosis 1. ABG good, sedation off and tolerating PSV. Will attempt extubation. Ordered bipap PRN 2. Echo ordered but not complete 3. Will give Lasix 20mg IV x1 now. BP is much better 4. Overall prognosis is guarded to poor. 5. Continue broad spec abx therapy for now. Can likely start to taper, repeat CXR tomorrow CCT 31 minutes. Subjective Date of service: 08/21/16 Interval history: ABG good this am. Awake and alert. No family at bedside. Objective Vital Signs - 12hr 08/21/16 08/21/16 08/21/16 01:15 01:31 01:45 Temperature Pulse Rate 72 80 74 Respiratory 16 16 16 Rate Blood Pressure 111/55 136/95 136/95 O2 Sat by Pulse 100 97 99 Oximetry 08/21/16 08/21/16 08/21/16 02:00 02:15 02:30 Temperature Pulse Rate 71 70 74 Respiratory 16 15 16 Rate Blood Pressure 145/60 129/60 123/64 O2 Sat by Pulse 100 100 100 Oximetry 08/21/16 08/21/16 08/21/16 02:45 03:00 03:15 Temperature Pulse Rate 71 71 72 Respiratory 16 14 17 Rate Blood Pressure 118/56 116/51 108/54 O2 Sat by Pulse 100 100 100 Oximetry 08/21/16 08/21/16 08/21/16 03:30 03:45 04:00 Temperature Pulse Rate 72 74 74 Respiratory 15 17 21 Rate Blood Pressure 114/60 113/63 118/64 O2 Sat by Pulse 100 100 100 Oximetry 08/21/16 08/21/16 08/21/16 04:15 04:31 04:45 Temperature Pulse Rate 77 78 73 Respiratory 17 16 13 Rate Blood Pressure 112/64 102/63 125/65 O2 Sat by Pulse 100 99 100 Oximetry 08/21/16 08/21/16 08/21/16 04:58 05:00 05:15 Temperature Pulse Rate 78 71 71 Respiratory 16 16 Rate Blood Pressure 102/63 133/67 123/60 O2 Sat by Pulse 99 100 100 Oximetry 08/21/16 08/21/16 08/21/16 05:30 05:45 06:00 Temperature Pulse Rate 75 74 72 Respiratory 15 16 16 Rate Blood Pressure 111/67 104/66 106/51 O2 Sat by Pulse 100 100 100 Oximetry 08/21/16 08/21/16 08/21/16 06:15 06:31 06:45 Temperature Pulse Rate 74 69 71 Respiratory 13 10 L 12 Rate Blood Pressure 126/48 137/65 126/48 O2 Sat by Pulse 72 L 99 Oximetry 08/21/16 08/21/16 08/21/16 07:00 07:15 07:31 Temperature Pulse Rate 74 75 85 Respiratory 15 16 9 L Rate Blood Pressure 135/58 135/58 130/69 O2 Sat by Pulse 100 95 Oximetry 08/21/16 08/21/16 08/21/16 07:45 08:00 08:02 Temperature 98.9 F Pulse Rate 71 75 69 Respiratory 15 11 L 16 Rate Blood Pressure 135/59 117/63 137/65 O2 Sat by Pulse 97 72 L Oximetry 08/21/16 08/21/16 08/21/16 08:15 08:30 08:45 Temperature Pulse Rate 70 70 83 Respiratory 13 12 13 Rate Blood Pressure 122/65 127/58 124/65 O2 Sat by Pulse 97 97 99 Oximetry 08/21/16 08/21/16 08/21/16 09:00 09:15 09:30 Temperature Pulse Rate 79 71 70 Respiratory 13 13 12 Rate Blood Pressure 125/70 127/68 133/67 O2 Sat by Pulse 99 100 99 Oximetry 08/21/16 08/21/16 08/21/16 09:45 10:00 10:15 Temperature Pulse Rate 77 83 73 Respiratory 16 15 15 Rate Blood Pressure 145/64 144/55 128/70 O2 Sat by Pulse 100 97 100 Oximetry 08/21/16 08/21/16 08/21/16 10:30 10:45 11:00 Temperature Pulse Rate 76 72 84 Respiratory 13 11 L 10 L Rate Blood Pressure 124/65 120/50 108/59 O2 Sat by Pulse 100 100 98 Oximetry 08/21/16 08/21/16 08/21/16 11:15 11:57 12:54 Temperature Pulse Rate 81 81 106 H Respiratory 17 16 18 Rate Blood Pressure 137/69 137/69 O2 Sat by Pulse 98 94 Oximetry Constitutional: no acute distress Eyes: non-icteric ENT: other (orally intubated and critically ill on vent) Neck: supple Ascultation: Right: rales (base), Bilateral: clear Percussion: Bilateral: not dull Cardiovascular: regular rate and rhythm Gastrointestinal: normoactive bowel sounds Neurologic: unable to assess CBC and BMP: 08/21/16 05:00 08/21/16 05:00 ABG, PT/INR, D-dimer: ABG POC ABG pH 7.473 (7.35-7.45) H 08/21/16 04:58 POC ABG pCO2 37.6 (35-45) 08/21/16 04:58 POC ABG pO2 116 (80-105) H 08/21/16 04:58 POC ABG HCO3 27.6 08/21/16 04:58 POC ABG Total CO2 29 08/21/16 04:58 POC ABG O2 Sat 99 08/21/16 04:58 PT/INR, D-dimer PT 18.1 Sec. (12.2-14.9) H 08/18/16 20:44 INR 1.50 (0.87-1.13) H 08/18/16 20:44 Abnormal lab findings: Abnormal Labs 08/18/16 08/18/16 08/18/16 20:44 20:44 20:44 WBC 20.7 H MCH 26 L RDW 17.3 H Seg Neuts % (Manual) 71.0 H Lymphocytes % (Manual) 5.0 L Seg Neutrophils # Man 14.7 H Lymphocytes # (Manual) 1.0 L Monocytes # (Manual) 1.0 H PT 18.1 H INR 1.50 H POC ABG pH POC ABG pCO2 POC ABG pO2 Sodium Potassium Chloride BUN Glucose POC Glucose Lactic Acid Calcium Urine WBC (Auto) 9.0 H 08/18/16 08/18/16 08/18/16 20:44 21:13 21:55 WBC MCH RDW Seg Neuts % (Manual) Lymphocytes % (Manual) Seg Neutrophils # Man Lymphocytes # (Manual) Monocytes # (Manual) PT INR POC ABG pH 7.569 H POC ABG pCO2 POC ABG pO2 182 H Sodium Potassium Chloride BUN Glucose POC Glucose Lactic Acid 2.10 H* 2.40 H* Calcium Urine WBC (Auto) 08/19/16 08/19/16 08/19/16 01:20 01:28 04:46 WBC MCH RDW Seg Neuts % (Manual) Lymphocytes % (Manual) Seg Neutrophils # Man Lymphocytes # (Manual) Monocytes # (Manual) PT INR POC ABG pH 7.521 H POC ABG pCO2 33.8 L POC ABG pO2 79 L Sodium Potassium Chloride BUN Glucose POC Glucose 114 H Lactic Acid 2.10 H* Calcium Urine WBC (Auto) 08/19/16 08/19/16 08/19/16 05:35 08:43 08:43 WBC 13.3 H MCH 26 L RDW 17.6 H Seg Neuts % (Manual) Lymphocytes % (Manual) Seg Neutrophils # Man Lymphocytes # (Manual) Monocytes # (Manual) PT INR POC ABG pH POC ABG pCO2 POC ABG pO2 Sodium 136 L Potassium Chloride 93.8 L BUN Glucose 119 H POC Glucose 113 H Lactic Acid Calcium 8.0 L Urine WBC (Auto) 08/19/16 08/20/16 08/20/16 11:00 04:00 04:00 WBC 14.9 H MCH 26 L RDW 18.0 H Seg Neuts % (Manual) Lymphocytes % (Manual) Seg Neutrophils # Man Lymphocytes # (Manual) Monocytes # (Manual) PT INR POC ABG pH POC ABG pCO2 POC ABG pO2 Sodium Potassium Chloride 97.2 L BUN 18 H Glucose 105 H POC Glucose Lactic Acid 2.70 H* Calcium 7.9 L Urine WBC (Auto) 08/20/16 08/20/16 08/21/16 04:31 11:25 04:58 WBC MCH RDW Seg Neuts % (Manual) Lymphocytes % (Manual) Seg Neutrophils # Man Lymphocytes # (Manual) Monocytes # (Manual) PT INR POC ABG pH 7.498 H 7.473 H POC ABG pCO2 POC ABG pO2 116 H Sodium Potassium Chloride BUN Glucose POC Glucose 110 H Lactic Acid Calcium Urine WBC (Auto) 08/21/16 08/21/16 05:00 05:00 WBC 13.7 H MCH 26 L RDW 18.1 H Seg Neuts % (Manual) Lymphocytes % (Manual) Seg Neutrophils # Man Lymphocytes # (Manual) Monocytes # (Manual) PT INR POC ABG pH POC ABG pCO2 POC ABG pO2 Sodium Potassium 3.5 L Chloride BUN Glucose POC Glucose Lactic Acid Calcium 8.0 L Urine WBC (Auto)
[2016-08-21] MEDS: INDERAL LA PO SCH (14:19)
[2016-08-21] MEDS: ULTRAM PO PRN (14:23)
[2016-08-21] MEDS: VANCOMYCIN 1,250 MG in NACL 0.9% 250ML 250 ML IV SCH (22:07)
[2016-08-21] MEDS: REMERON PO SCH (22:48)
[2016-08-22] MEDS: ZOSYN/NS 4.5GM/100ML 4.5 GM/100 ML VIAL IV SCH ×4 (00:29→17:34)
[2016-08-22] MEDS ORDERED: VERSED ONE (01:48)
--- NOTE | 2016-08-22 02:42 | XRay Report ---
FINAL REPORT EXAM: XR CHEST 1V AP HISTORY: post intubation; Shortness of breath COMPARISON: August 18, 2016. FINDINGS: Frontal view(s) of the chest obtained. Heart normal in size. ETT remains stable position at the level clavicular heads. Distal tip approximately 5.5 centimeters from the dima. Interval placement of right PICC line. Distal tip appears to extend to the distal SVC. Persistent patchy consolidation right lung base and small effusion. No gross pneumothorax. NG tube remains in place. IMPRESSION: Interval placement of right PICC line with distal tip projecting over the distal SVC. ET tube and NG tube are grossly unchanged. Stable consolidation and effusion at the right lung base.
[2016-08-22 03:28] LABS: ISTAT Base Excess 5; ISTAT HCO3 35.1; ISTAT PCO2 119.1 (35-45); ISTAT PH 7.077 (7.35-7.45); ISTAT PO2 65 (80-105); ISTAT SO2 80; ISTAT TCO2 39
[2016-08-22 03:28] LABS: ISTAT Base Excess 3; ISTAT PCO2 61.9 (35-45); ISTAT PH 7.293 (7.35-7.45); ISTAT PO2 73 (80-105); ISTAT SO2 92; ISTAT TCO2 32
[2016-08-22] MEDS: DIPRIVAN 10 MG/ML 1,000 MG/100 ML BOTTLE IV SCH ×3 (03:31→17:34)
[2016-08-22] MEDS: LEVOPHED DRIP 4 MG/NS 250 ML 4 MG/250 ML BAG IV SCH ×3 (03:36→17:33)
[2016-08-22] MEDS ORDERED: LASIX IV ONE (04:00)
[2016-08-22] MEDS ORDERED: VERSED IV ONE (04:47)
[2016-08-22] MEDS: NEURONTIN PO SCH ×3 (05:44→21:46)
[2016-08-22 06:07] LABS: ISTAT Base Excess 3; ISTAT PCO2 54.2 (35-45); ISTAT PH 7.337 (7.35-7.45); ISTAT PO2 58 (80-105); ISTAT SO2 87; ISTAT TCO2 31
--- NOTE | 2016-08-22 08:41 | Progress Note ---
Assessment and Plan Assessment and plan: Acute respiratory failure. She was sedated on ventilator. She was extubated yesterday however she became worse early hrs of morning and therefore re- intubated. Admitted to ICU. She is still intubated. Pulmonology following. Severe sepsis with septic shock. On Levaquin, Zosyn, Vanco. Also on Levophed drip. 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 On Eliquis History of pulmonary embolism. Has been on Eliquis. Repeat CT Angio chest negative for new pulmonary embolism Chronic CHF. Continuie Lasix Hyperthyroidsm. Hypertension. BP stable History of recent stroke Full code status History Interval history: Patient with acute respiratory failure, Was extubated yesterday but re-intubated overnight- still intubated, Hospitalist Physical - Physical exam Narrative exam: Gen appearance : Intubated, HEENT: normocephalic, atraumatic Neck :supple no JVD Lungs: clear to auscultation bilaterally, no crackles, or wheezes Heart:S1 and S2 regular, no murmurs, no gallop, no rubs Abdomen soft, non-tender, non-distended, normal bowel sounds Extremities: no edema, no clubbing, or cyanosis Neuro : Intubated, sedated,responds to stimuli - Constitutional Vitals: Temp Pulse Resp BP Pulse Ox 97.6 F 86 15 145/73 100 08/22/16 08:00 08/22/16 07:48 08/22/16 05:46 08/22/16 07:48 08/22/16 07:48 General appearance: Present: severe distress Results - Labs CBC & Chem 7: 08/22/16 09:05 08/22/16 09:05 Labs: Laboratory Last Values WBC 13.7 K/mm3 (4.5-11.0) H 08/21/16 05:00 RBC 3.94 M/mm3 (3.65-5.03) 08/21/16 05:00 Hgb 10.2 gm/dl (10.1-14.3) 08/21/16 05:00 Hct 32.5 % (30.3-42.9) 08/21/16 05:00 MCV 82 fl (79-97) 08/21/16 05:00 MCH 26 pg (28-32) L 08/21/16 05:00 MCHC 32 % (30-34) 08/21/16 05:00 RDW 18.1 % (13.2-15.2) H 08/21/16 05:00 Plt Count 254 K/mm3 (140-440) 08/21/16 05:00 Add Manual Diff Complete 08/18/16 20:44 Total Counted 100 08/18/16 20:44 Seg Neutrophils % Promotions Assistant Sales Marketing 08/18/16 20:44 Seg Neuts % (Manual) 71.0 % (40.0-70.0) H 08/18/16 20:44 Band Neutrophils % 19.0 % 08/18/16 20:44 Lymphocytes % (Manual) 5.0 % (13.4-35.0) L 08/18/16 20:44 Reactive Lymphs % (Man) 0 % 08/18/16 20:44 Monocytes % (Manual) 5.0 % (0.0-7.3) 08/18/16 20:44 Eosinophils % (Manual) 0 % (0.0-4.3) 08/18/16 20:44 Basophils % (Manual) 0 % (0.0-1.8) 08/18/16 20:44 Metamyelocytes % 0 % 08/18/16 20:44 Myelocytes % 0 % 08/18/16 20:44 Promyelocytes % 0 % 08/18/16 20:44 Blast Cells % 0 % 08/18/16 20:44 Nucleated RBC % Not Reportable 08/18/16 20:44 Seg Neutrophils # Man 14.7 K/mm3 (1.8-7.7) H 08/18/16 20:44 Band Neutrophils # 3.9 K/mm3 08/18/16 20:44 Lymphocytes # (Manual) 1.0 K/mm3 (1.2-5.4) L 08/18/16 20:44 Abs React Lymphs (Man) 0.0 K/mm3 08/18/16 20:44 Monocytes # (Manual) 1.0 K/mm3 (0.0-0.8) H 08/18/16 20:44 Eosinophils # (Manual) 0.0 K/mm3 (0.0-0.4) 08/18/16 20:44 Basophils # (Manual) 0.0 K/mm3 (0.0-0.1) 08/18/16 20:44 Metamyelocytes # 0.0 K/mm3 08/18/16 20:44 Myelocytes # 0.0 K/mm3 08/18/16 20:44 Promyelocytes # 0.0 K/mm3 08/18/16 20:44 Blast Cells # 0.0 K/mm3 08/18/16 20:44 WBC Morphology Not Reportable 08/18/16 20:44 Hypersegmented Neuts Not Reportable 08/18/16 20:44 Hyposegmented Neuts Not Reportable 08/18/16 20:44 Hypogranular Neuts Not Reportable 08/18/16 20:44 Smudge Cells Not Reportable 08/18/16 20:44 Toxic Granulation Not Reportable 08/18/16 20:44 Toxic Vacuolation Not Reportable 08/18/16 20:44 Dohle Bodies Not Reportable 08/18/16 20:44 Pelger-Huet Anomaly Not Reportable 08/18/16 20:44 Alberto Rods Not Reportable 08/18/16 20:44 Platelet Estimate Consistent w auto 08/18/16 20:44 Clumped Platelets Not Reportable 08/18/16 20:44 Plt Clumps, EDTA Not Reportable 08/18/16 20:44 Large Platelets Not Reportable 08/18/16 20:44 Giant Platelets Not Reportable 08/18/16 20:44 Platelet Satelliting Not Reportable 08/18/16 20:44 Plt Morphology Comment Not Reportable 08/18/16 20:44 RBC Morphology Not Reportable 08/18/16 20:44 Dimorphic RBCs Not Reportable 08/18/16 20:44 Polychromasia Not Reportable 08/18/16 20:44 Hypochromasia 1+ 08/18/16 20:44 Poikilocytosis Not Reportable 08/18/16 20:44 Anisocytosis 1+ 08/18/16 20:44 Microcytosis Not Reportable 08/18/16 20:44 Macrocytosis Not Reportable 08/18/16 20:44 Spherocytes Not Reportable 08/18/16 20:44 Pappenheimer Bodies Not Reportable 08/18/16 20:44 Sickle Cells Not Reportable 08/18/16 20:44 Target Cells Not Reportable 08/18/16 20:44 Tear Drop Cells Not Reportable 08/18/16 20:44 Ovalocytes Few 08/18/16 20:44 Helmet Cells Not Reportable 08/18/16 20:44 [place] Bodies Not Reportable 08/18/16 20:44 Carlos Rings Not Reportable 08/18/16 20:44 Mode Cells Not Reportable 08/18/16 20:44 Bite Cells Not Reportable 08/18/16 20:44 Crenated Cell Not Reportable 08/18/16 20:44 Elliptocytes Not Reportable 08/18/16 20:44 Acanthocytes (Spur) Not Reportable 08/18/16 20:44 Rouleaux Not Reportable 08/18/16 20:44 Hemoglobin C Crystals Not Reportable 08/18/16 20:44 Schistocytes Not Reportable 08/18/16 20:44 Malaria parasites Not Reportable 08/18/16 20:44 Igno Bodies Not Reportable 08/18/16 20:44 Hem Pathologist Commnt No 08/18/16 20:44 PT 18.1 Sec. (12.2-14.9) H 08/18/16 20:44 INR 1.50 (0.87-1.13) H 08/18/16 20:44 APTT 28.6 Sec. (24.2-36.6) 08/18/16 20:44 POC ABG pH 7.337 (7.35-7.45) L 08/22/16 05:39 POC ABG pCO2 54.2 (35-45) H 08/22/16 05:39 POC ABG pO2 58 (80-105) L 08/22/16 05:39 POC ABG HCO3 29.0 08/22/16 05:39 POC ABG Total CO2 31 08/22/16 05:39 POC ABG O2 Sat 87 08/22/16 05:39 POC ABG Base Excess 3 08/22/16 05:39 FiO2 100 % 08/22/16 05:39 Sodium 141 mmol/L (137-145) 08/21/16 05:00 Potassium 3.5 mmol/L (3.6-5.0) L 08/21/16 05:00 Chloride 98.9 mmol/L (98-107) 08/21/16 05:00 Carbon Dioxide 27 mmol/L (22-30) 08/21/16 05:00 Anion Gap 19 mmol/L 08/21/16 05:00 BUN 17 mg/dL (7-17) 08/21/16 05:00 Creatinine 0.8 mg/dL (0.7-1.2) 08/21/16 05:00 Estimated GFR > 60 ml/min 08/21/16 05:00 BUN/Creatinine Ratio 21.25 % 08/21/16 05:00 Glucose 82 mg/dL (65-100) 08/21/16 05:00 POC Glucose 110 (70-105) H 08/20/16 11:25 Lactic Acid 2.70 mmol/L (0.7-2.0) H* 08/19/16 11:00 Calcium 8.0 mg/dL (8.4-10.2) L 08/21/16 05:00 Magnesium 2.30 mg/dL (1.7-2.3) 08/18/16 19:46 Total Bilirubin 0.40 mg/dL (0.1-1.2) 08/18/16 19:46 AST 11 units/L (5-40) 08/18/16 19:46 ALT 29 units/L (7-56) 08/18/16 19:46 Alkaline Phosphatase 95 units/L (35-129) 08/18/16 19:46 Troponin T < 0.010 ng/mL (0.00-0.029) 08/18/16 19:46 NT-Pro-B Natriuret Pep 440.6 pg/mL (0-900) 08/18/16 19:46 Total Protein 6.8 g/dL (6.3-8.2) 08/18/16 19:46 Albumin 2.9 g/dL (3.9-5) L 08/18/16 19:46 Albumin/Globulin Ratio 0.7 % 08/18/16 19:46 Urine Color Yellow (Yellow) 08/18/16 20:44 Urine Turbidity Slightly-cloudy (Clear) 08/18/16 20:44 Urine pH 6.0 (5.0-7.0) 08/18/16 20:44 Ur Specific [place] 1.012 (1.003-1.030) 08/18/16 20:44 Urine Protein 100 mg/dl mg/dL (Negative) 08/18/16 20:44 Urine Glucose (UA) Neg mg/dL (Negative) 08/18/16 20:44 Urine Ketones Neg mg/dL (Negative) 08/18/16 20:44 Urine Blood Lg (Negative) 08/18/16 20:44 Urine Nitrite Neg (Negative) 08/18/16 20:44 Urine Bilirubin Neg (Negative) 08/18/16 20:44 Urine Urobilinogen < 2.0 mg/dL (<2.0) 08/18/16 20:44 Ur Leukocyte Esterase Neg (Negative) 08/18/16 20:44 Urine WBC (Auto) 9.0 /HPF (0.0-6.0) H 08/18/16 20:44 Urine RBC (Auto) 25.0 /HPF (0.0-6.0) 08/18/16 20:44 U Epithel Cells (Auto) < 1.0 /HPF (0-13.0) 08/18/16 20:44 Urine Bacteria (Auto) 1+ /HPF (Negative) 08/18/16 20:44 Urine Mucus Few /HPF 08/18/16 20:44
[2016-08-22 09:28] LABS: Hematocrit 38.9 % (30.3-42.9); Hemoglobin 12.1 gm/dl (10.1-14.3); Mean Corpuscular HGB Conc 31 % (30-34); Mean Corpuscular Hemoglobin 26 pg (28-32); Mean Corpuscular Volume 84 fl (79-97); Platelet Count 342 K/mm3 (140-440); Red Blood Count 4.63 M/mm3 (3.65-5.03); Red Cell Distribution Width 18.5 % (13.2-15.2); White Blood Count 19.2 K/mm3 (4.5-11.0)
[2016-08-22 09:32] LABS: ISTAT Base Excess 5; ISTAT HCO3 29.3; ISTAT PH 7.412 (7.35-7.45); ISTAT PO2 302 (80-105); ISTAT SO2 100; ISTAT TCO2 31
[2016-08-22 09:46] LABS: Anion Gap 24 mmol/L; BUN/Creatinine Ratio 23.75; Blood Urea Nitrogen 19 mg/dL (7-17); Calcium 8.4 mg/dL (8.4-10.2); Carbon Dioxide 28 mmol/L (22-30); Chloride 95.1 mmol/L (98-107); Glucose 105 mg/dL (65-100); Potassium 3.5 mmol/L (3.6-5.0); Sodium 144 mmol/L (137-145)
[2016-08-22] MEDS: LEVAQUIN 750MG/150ML 750 MG/150 ML BAG IV SCH (10:39)
[2016-08-22] MEDS: TAPAZOLE PO SCH (10:40)
[2016-08-22] MEDS: INDERAL LA PO SCH (10:40)
[2016-08-22] MEDS: CLARITIN PO SCH (10:41)
[2016-08-22] MEDS: PEPCID IV SCH ×2 (10:41→21:46)
[2016-08-22] MEDS: ELIQUIS PO SCH ×2 (10:41→21:46)
--- NOTE | 2016-08-22 11:50 | Progress Note ---
Assessment and Plan Acute respiratory failure. Patient failed weaning yesterday even though an NIV was used. Now stable on ventilator support COPD with exacerbation Sepsis. Clinically controlled. No fever. Completing antibiotics. Recommendations I will continue antibiotics. Decrease tidal volume to 400 x lung protection DVT prophylaxis Consider SBT on the next 24 hours Critical care time was 31 minutes of [id number] evaluation and coordination of care Subjective Date of service: 08/22/16 Principal diagnosis: acute respiratory failure, COPD exacerbation, sepsis Interval history: Some discomfort for from ETT. No chest pain Objective Vital Signs - 12hr 08/21/16 08/22/16 08/22/16 23:45 00:00 00:15 Temperature Pulse Rate 82 83 80 Pulse Rate [ From Monitor] Respiratory 20 20 19 Rate Blood Pressure 140/74 158/77 145/73 O2 Sat by Pulse 94 91 92 Oximetry 08/22/16 08/22/16 08/22/16 00:31 00:43 00:46 Temperature 98.6 F Pulse Rate 79 82 Pulse Rate [ From Monitor] Respiratory 19 17 Rate Blood Pressure 143/83 143/83 O2 Sat by Pulse 87 88 Oximetry 08/22/16 08/22/16 08/22/16 01:00 01:15 01:30 Temperature Pulse Rate 83 84 85 Pulse Rate [ From Monitor] Respiratory 15 20 17 Rate Blood Pressure 171/84 190/85 190/85 O2 Sat by Pulse 84 87 87 Oximetry 08/22/16 08/22/16 08/22/16 01:45 02:00 02:16 Temperature Pulse Rate 89 87 78 Pulse Rate [ From Monitor] Respiratory 12 20 16 Rate Blood Pressure 173/85 127/65 125/61 O2 Sat by Pulse 83 L 84 Oximetry 08/22/16 08/22/16 08/22/16 02:30 02:45 03:00 Temperature Pulse Rate 78 81 82 Pulse Rate [ From Monitor] Respiratory 8 L 21 19 Rate Blood Pressure 70/38 152/82 151/87 O2 Sat by Pulse 93 90 Oximetry 08/22/16 08/22/16 08/22/16 03:13 03:16 03:30 Temperature Pulse Rate 88 91 H 81 Pulse Rate [ From Monitor] Respiratory 24 20 Rate Blood Pressure 151/87 133/84 138/87 O2 Sat by Pulse 94 90 90 Oximetry 08/22/16 08/22/16 08/22/16 03:43 03:45 04:00 Temperature 97.8 F Pulse Rate 103 H 75 Pulse Rate [ From Monitor] Respiratory 16 16 Rate Blood Pressure 99/58 81/38 O2 Sat by Pulse Oximetry 08/22/16 08/22/16 08/22/16 04:15 04:30 04:45 Temperature Pulse Rate 91 H 77 84 Pulse Rate [ From Monitor] Respiratory 17 16 15 Rate Blood Pressure 118/64 118/77 114/76 O2 Sat by Pulse 100 96 95 Oximetry 08/22/16 08/22/16 08/22/16 04:58 05:00 05:15 Temperature Pulse Rate 77 76 Pulse Rate [ 80 From Monitor] Respiratory 16 16 16 Rate Blood Pressure 106/54 113/80 O2 Sat by Pulse 95 95 Oximetry 08/22/16 08/22/16 08/22/16 05:30 05:39 05:46 Temperature Pulse Rate 78 81 101 H Pulse Rate [ From Monitor] Respiratory 16 15 Rate Blood Pressure 129/59 114/76 129/59 O2 Sat by Pulse 93 98 100 Oximetry 08/22/16 08/22/16 08/22/16 06:00 06:16 06:30 Temperature Pulse Rate 79 74 80 Pulse Rate [ From Monitor] Respiratory 14 16 16 Rate Blood Pressure 81/35 87/67 147/99 O2 Sat by Pulse 100 100 100 Oximetry 08/22/16 08/22/16 08/22/16 06:46 07:00 07:16 Temperature Pulse Rate 85 87 97 H Pulse Rate [ From Monitor] Respiratory 16 16 15 Rate Blood Pressure 119/68 123/75 123/75 O2 Sat by Pulse 100 100 100 Oximetry 08/22/16 08/22/16 08/22/16 07:30 07:46 07:48 Temperature Pulse Rate 92 H 93 H 86 Pulse Rate [ From Monitor] Respiratory 16 16 Rate Blood Pressure 94/77 145/73 145/73 O2 Sat by Pulse 100 100 100 Oximetry 08/22/16 08/22/16 08/22/16 08:00 08:16 08:30 Temperature 97.6 F Pulse Rate 86 82 83 Pulse Rate [ From Monitor] Respiratory 14 16 16 Rate Blood Pressure 145/73 105/65 94/60 O2 Sat by Pulse 99 100 Oximetry 08/22/16 10:40 Temperature Pulse Rate Pulse Rate [ From Monitor] Respiratory Rate Blood Pressure 76/43 O2 Sat by Pulse Oximetry Constitutional: no acute distress, asleep Eyes: non-icteric ENT: other (orally intubated, on vent) Neck: supple Ascultation: Right: rales (sporadic otherwise clear), Bilateral: clear Percussion: Bilateral: not dull Cardiovascular: regular rate and rhythm Gastrointestinal: normoactive bowel sounds Neurologic: other (she is responsive and awake, not fully oriented) Psychiatric: mood appropriate CBC and BMP: 08/22/16 09:05 08/22/16 09:05 ABG, PT/INR, D-dimer: ABG POC ABG pH 7.412 (7.35-7.45) 08/22/16 09:24 POC ABG pCO2 46.0 (35-45) H 08/22/16 09:24 POC ABG pO2 302 (80-105) H 08/22/16 09:24 POC ABG HCO3 29.3 08/22/16 09:24 POC ABG Total CO2 31 08/22/16 09:24 POC ABG O2 Sat 100 08/22/16 09:24 PT/INR, D-dimer PT 18.1 Sec. (12.2-14.9) H 08/18/16 20:44 INR 1.50 (0.87-1.13) H 08/18/16 20:44 Abnormal lab findings: Abnormal Labs 08/18/16 08/18/16 08/18/16 20:44 20:44 20:44 WBC 20.7 H MCH 26 L RDW 17.3 H Seg Neuts % (Manual) 71.0 H Lymphocytes % (Manual) 5.0 L Seg Neutrophils # Man 14.7 H Lymphocytes # (Manual) 1.0 L Monocytes # (Manual) 1.0 H PT 18.1 H INR 1.50 H POC ABG pH POC ABG pCO2 POC ABG pO2 Sodium Potassium Chloride BUN Glucose POC Glucose Lactic Acid Calcium Urine WBC (Auto) 9.0 H 08/18/16 08/18/16 08/18/16 20:44 21:13 21:55 WBC MCH RDW Seg Neuts % (Manual) Lymphocytes % (Manual) Seg Neutrophils # Man Lymphocytes # (Manual) Monocytes # (Manual) PT INR POC ABG pH 7.569 H POC ABG pCO2 POC ABG pO2 182 H Sodium Potassium Chloride BUN Glucose POC Glucose Lactic Acid 2.10 H* 2.40 H* Calcium Urine WBC (Auto) 08/19/16 08/19/16 08/19/16 01:20 01:28 04:46 WBC MCH RDW Seg Neuts % (Manual) Lymphocytes % (Manual) Seg Neutrophils # Man Lymphocytes # (Manual) Monocytes # (Manual) PT INR POC ABG pH 7.521 H POC ABG pCO2 33.8 L POC ABG pO2 79 L Sodium Potassium Chloride BUN Glucose POC Glucose 114 H Lactic Acid 2.10 H* Calcium Urine WBC (Auto) 08/19/16 08/19/16 08/19/16 05:35 08:43 08:43 WBC 13.3 H MCH 26 L RDW 17.6 H Seg Neuts % (Manual) Lymphocytes % (Manual) Seg Neutrophils # Man Lymphocytes # (Manual) Monocytes # (Manual) PT INR POC ABG pH POC ABG pCO2 POC ABG pO2 Sodium 136 L Potassium Chloride 93.8 L BUN Glucose 119 H POC Glucose 113 H Lactic Acid Calcium 8.0 L Urine WBC (Auto) 08/19/16 08/20/16 08/20/16 11:00 04:00 04:00 WBC 14.9 H MCH 26 L RDW 18.0 H Seg Neuts % (Manual) Lymphocytes % (Manual) Seg Neutrophils # Man Lymphocytes # (Manual) Monocytes # (Manual) PT INR POC ABG pH POC ABG pCO2 POC ABG pO2 Sodium Potassium Chloride 97.2 L BUN 18 H Glucose 105 H POC Glucose Lactic Acid 2.70 H* Calcium 7.9 L Urine WBC (Auto) 08/20/16 08/20/16 08/21/16 04:31 11:25 04:58 WBC MCH RDW Seg Neuts % (Manual) Lymphocytes % (Manual) Seg Neutrophils # Man Lymphocytes # (Manual) Monocytes # (Manual) PT INR POC ABG pH 7.498 H 7.473 H POC ABG pCO2 POC ABG pO2 116 H Sodium Potassium Chloride BUN Glucose POC Glucose 110 H Lactic Acid Calcium Urine WBC (Auto) 08/21/16 08/21/16 08/22/16 05:00 05:00 01:39 WBC 13.7 H MCH 26 L RDW 18.1 H Seg Neuts % (Manual) Lymphocytes % (Manual) Seg Neutrophils # Man Lymphocytes # (Manual) Monocytes # (Manual) PT INR POC ABG pH 7.077 L POC ABG pCO2 119.1 H POC ABG pO2 65 L Sodium Potassium 3.5 L Chloride BUN Glucose POC Glucose Lactic Acid Calcium 8.0 L Urine WBC (Auto) 08/22/16 08/22/16 08/22/16 03:13 05:39 09:05 WBC 19.2 H MCH 26 L RDW 18.5 H Seg Neuts % (Manual) Lymphocytes % (Manual) Seg Neutrophils # Man Lymphocytes # (Manual) Monocytes # (Manual) PT INR POC ABG pH 7.293 L 7.337 L POC ABG pCO2 61.9 H 54.2 H POC ABG pO2 73 L 58 L Sodium Potassium Chloride BUN Glucose POC Glucose Lactic Acid Calcium Urine WBC (Auto) 08/22/16 08/22/16 09:05 09:24 WBC MCH RDW Seg Neuts % (Manual) Lymphocytes % (Manual) Seg Neutrophils # Man Lymphocytes # (Manual) Monocytes # (Manual) PT INR POC ABG pH POC ABG pCO2 46.0 H POC ABG pO2 302 H Sodium Potassium 3.5 L Chloride 95.1 L BUN 19 H Glucose 105 H POC Glucose Lactic Acid Calcium Urine WBC (Auto) Chest x-ray: report reviewed
[2016-08-22 12:21] LABS: ISTAT Base Excess 2; ISTAT HCO3 26.1; ISTAT PCO2 36.8 (35-45); ISTAT PH 7.459 (7.35-7.45); ISTAT PO2 90 (80-105); ISTAT SO2 97; ISTAT TCO2 27
--- NOTE | 2016-08-22 19:25 | Event Note ---
Date: 08/22/16 Discussed with daughter at bedside. Discussed diagnosis, management and answered all questions.
[2016-08-22] MEDS: REMERON PO SCH (21:45)
[2016-08-22] MEDS: VANCOMYCIN 1,250 MG in NACL 0.9% 250ML 250 ML IV SCH (22:52)
[2016-08-23] MEDS: ZOSYN/NS 4.5GM/100ML 4.5 GM/100 ML VIAL IV SCH ×2 (02:55→05:19)
[2016-08-23] MEDS: NEURONTIN PO SCH ×3 (05:19→21:34)
[2016-08-23 05:32] LABS: Hematocrit 32.4 % (30.3-42.9); Hemoglobin 10.1 gm/dl (10.1-14.3); Mean Corpuscular HGB Conc 31 % (30-34); Mean Corpuscular Volume 83 fl (79-97); Platelet Count 303 K/mm3 (140-440); Red Blood Count 3.93 M/mm3 (3.65-5.03); White Blood Count 13.5 K/mm3 (4.5-11.0)
[2016-08-23 05:33] LABS: Mean Corpuscular Hemoglobin 26 pg (28-32)
[2016-08-23 05:52] LABS: Anion Gap 16 mmol/L; Blood Urea Nitrogen 18 mg/dL (7-17); Calcium 8.3 mg/dL (8.4-10.2); Carbon Dioxide 29 mmol/L (22-30); Chloride 98.8 mmol/L (98-107); Glucose 91 mg/dL (65-100); Potassium 3.1 mmol/L (3.6-5.0); Sodium 141 mmol/L (137-145)
--- NOTE | 2016-08-23 07:16 | XRay Report ---
AP CHEST: HISTORY: Follow up respiratory failure Lines and support devices are unchanged since yesterday's exam. The lungs are hyperinflated. Subtle patchy airspace disease has developed in the right upper lobe. This probably represents atelectatic changes. If fever is present, an early infiltrate could be considered. Minor right basilar atelectasis has nearly resolved. The left lung remains clear. Heart and mediastinal structures are within normal limits. IMPRESSION: Right lung findings as described.
[2016-08-23] MEDS: CLARITIN PO SCH (09:45)
[2016-08-23] MEDS: PEPCID PO SCH ×2 (09:46→21:34)
[2016-08-23] MEDS: POTASSIUM CHLORIDE FEEDTUBE SCH ×2 (09:46→14:37)
[2016-08-23] MEDS: TAPAZOLE PO SCH (09:46)
[2016-08-23] MEDS: LEVAQUIN 750MG/150ML 750 MG/150 ML BAG IV SCH (09:50)
[2016-08-23] MEDS: LASIX PO SCH (09:52)
[2016-08-23] MEDS: ELIQUIS PO SCH ×2 (09:52→21:34)
--- NOTE | 2016-08-23 10:50 | Progress Note ---
Assessment and Plan Acute respiratory failure. All sedation, started on pressure support/CPAP COPD with exacerbation Sepsis. Clinically controlled. No fever. Completing antibiotics. Recommendations I will continue antibiotics. We will continue to decrease pressure support has tolerated. Proceed with extubation appropriate and initiate noninvasive ventilation afterwards Discussed with nurse and RT. Critical care time was 31 minutes of [id number] evaluation and coordination of care Subjective Date of service: 08/23/16 Principal diagnosis: acute respiratory failure, COPD exacerbation, sepsis Interval history: Somnolent. Intubated Objective Vital Signs - 12hr 08/22/16 08/22/16 08/22/16 23:00 23:16 23:30 Temperature Pulse Rate 82 78 80 Respiratory 17 17 16 Rate Blood Pressure 129/86 133/70 119/66 O2 Sat by Pulse 100 100 100 Oximetry 08/22/16 08/22/16 08/23/16 23:34 23:46 00:00 Temperature 98.5 F Pulse Rate 79 89 80 Respiratory 16 17 16 Rate Blood Pressure 119/66 148/78 124/60 O2 Sat by Pulse 100 100 100 Oximetry 08/23/16 08/23/16 08/23/16 00:15 00:30 00:45 Temperature Pulse Rate 81 70 82 Respiratory 16 16 17 Rate Blood Pressure 109/59 111/49 117/66 O2 Sat by Pulse 100 100 100 Oximetry 08/23/16 08/23/16 08/23/16 01:00 01:15 01:25 Temperature Pulse Rate 69 70 69 Respiratory 16 16 Rate Blood Pressure 107/60 102/57 O2 Sat by Pulse 100 100 100 Oximetry 08/23/16 08/23/16 08/23/16 01:30 01:45 02:00 Temperature Pulse Rate 70 75 69 Respiratory 16 16 16 Rate Blood Pressure 101/59 95/55 101/62 O2 Sat by Pulse 100 100 100 Oximetry 08/23/16 08/23/16 08/23/16 02:15 02:30 02:45 Temperature Pulse Rate 71 72 77 Respiratory 16 16 16 Rate Blood Pressure 114/66 106/65 99/74 O2 Sat by Pulse 100 100 Oximetry 08/23/16 08/23/16 08/23/16 03:00 03:15 03:30 Temperature Pulse Rate 75 72 80 Respiratory 16 16 16 Rate Blood Pressure 103/59 104/57 110/62 O2 Sat by Pulse 100 100 100 Oximetry 08/23/16 08/23/16 08/23/16 03:45 03:54 03:55 Temperature Pulse Rate 73 78 78 Respiratory 15 Rate Blood Pressure 99/72 99/72 O2 Sat by Pulse 100 100 100 Oximetry 08/23/16 08/23/16 08/23/16 04:00 04:15 04:30 Temperature Pulse Rate 72 74 73 Respiratory 16 16 16 Rate Blood Pressure 104/59 90/57 92/62 O2 Sat by Pulse 100 100 100 Oximetry 08/23/16 08/23/16 08/23/16 04:46 05:00 05:15 Temperature Pulse Rate 71 70 71 Respiratory 16 16 16 Rate Blood Pressure 120/71 130/70 119/60 O2 Sat by Pulse 100 100 100 Oximetry 08/23/16 08/23/16 08/23/16 05:30 05:45 06:00 Temperature 98.5 F Pulse Rate 73 74 77 Respiratory 16 16 17 Rate Blood Pressure 137/71 136/65 124/73 O2 Sat by Pulse 100 100 100 Oximetry 08/23/16 08/23/16 08/23/16 06:02 06:15 06:30 Temperature Pulse Rate 73 71 Respiratory 16 15 16 Rate Blood Pressure 132/68 124/72 O2 Sat by Pulse 100 100 100 Oximetry 08/23/16 08/23/16 08/23/16 06:45 07:00 07:15 Temperature Pulse Rate 77 74 70 Respiratory 17 17 18 Rate Blood Pressure 127/76 121/63 129/68 O2 Sat by Pulse 100 100 100 Oximetry 08/23/16 08/23/16 08/23/16 07:30 07:45 08:00 Temperature 98.2 F Pulse Rate 78 69 71 Respiratory 18 18 18 Rate Blood Pressure 120/67 125/62 114/67 O2 Sat by Pulse 100 100 100 Oximetry 08/23/16 08/23/16 08:09 09:41 Temperature Pulse Rate 82 85 Respiratory 11 L 21 Rate Blood Pressure 114/67 138/67 O2 Sat by Pulse 99 98 Oximetry Constitutional: no acute distress Eyes: non-icteric ENT: other (orally intubated, on vent) Neck: supple Ascultation: Bilateral: clear, rhonchi (sporadic) Percussion: Bilateral: not dull Cardiovascular: regular rate and rhythm Gastrointestinal: normoactive bowel sounds Neurologic: other (R ASS -1) Psychiatric: mood appropriate CBC and BMP: 08/23/16 05:10 08/23/16 05:10 ABG, PT/INR, D-dimer: ABG POC ABG pH 7.459 (7.35-7.45) H 08/22/16 11:35 POC ABG pCO2 36.8 (35-45) 08/22/16 11:35 POC ABG pO2 90 (80-105) 08/22/16 11:35 POC ABG HCO3 26.1 08/22/16 11:35 POC ABG Total CO2 27 08/22/16 11:35 POC ABG O2 Sat 97 08/22/16 11:35 PT/INR, D-dimer PT 18.1 Sec. (12.2-14.9) H 08/18/16 20:44 INR 1.50 (0.87-1.13) H 08/18/16 20:44 Abnormal lab findings: Abnormal Labs 08/18/16 08/18/16 08/18/16 20:44 20:44 20:44 WBC 20.7 H MCH 26 L RDW 17.3 H Seg Neuts % (Manual) 71.0 H Lymphocytes % (Manual) 5.0 L Seg Neutrophils # Man 14.7 H Lymphocytes # (Manual) 1.0 L Monocytes # (Manual) 1.0 H PT 18.1 H INR 1.50 H POC ABG pH POC ABG pCO2 POC ABG pO2 Sodium Potassium Chloride BUN Glucose POC Glucose Lactic Acid Calcium Urine WBC (Auto) 9.0 H 08/18/16 08/18/16 08/18/16 20:44 21:13 21:55 WBC MCH RDW Seg Neuts % (Manual) Lymphocytes % (Manual) Seg Neutrophils # Man Lymphocytes # (Manual) Monocytes # (Manual) PT INR POC ABG pH 7.569 H POC ABG pCO2 POC ABG pO2 182 H Sodium Potassium Chloride BUN Glucose POC Glucose Lactic Acid 2.10 H* 2.40 H* Calcium Urine WBC (Auto) 08/19/16 08/19/16 08/19/16 01:20 01:28 04:46 WBC MCH RDW Seg Neuts % (Manual) Lymphocytes % (Manual) Seg Neutrophils # Man Lymphocytes # (Manual) Monocytes # (Manual) PT INR POC ABG pH 7.521 H POC ABG pCO2 33.8 L POC ABG pO2 79 L Sodium Potassium Chloride BUN Glucose POC Glucose 114 H Lactic Acid 2.10 H* Calcium Urine WBC (Auto) 08/19/16 08/19/16 08/19/16 05:35 08:43 08:43 WBC 13.3 H MCH 26 L RDW 17.6 H Seg Neuts % (Manual) Lymphocytes % (Manual) Seg Neutrophils # Man Lymphocytes # (Manual) Monocytes # (Manual) PT INR POC ABG pH POC ABG pCO2 POC ABG pO2 Sodium 136 L Potassium Chloride 93.8 L BUN Glucose 119 H POC Glucose 113 H Lactic Acid Calcium 8.0 L Urine WBC (Auto) 08/19/16 08/20/16 08/20/16 11:00 04:00 04:00 WBC 14.9 H MCH 26 L RDW 18.0 H Seg Neuts % (Manual) Lymphocytes % (Manual) Seg Neutrophils # Man Lymphocytes # (Manual) Monocytes # (Manual) PT INR POC ABG pH POC ABG pCO2 POC ABG pO2 Sodium Potassium Chloride 97.2 L BUN 18 H Glucose 105 H POC Glucose Lactic Acid 2.70 H* Calcium 7.9 L Urine WBC (Auto) 08/20/16 08/20/16 08/21/16 04:31 11:25 04:58 WBC MCH RDW Seg Neuts % (Manual) Lymphocytes % (Manual) Seg Neutrophils # Man Lymphocytes # (Manual) Monocytes # (Manual) PT INR POC ABG pH 7.498 H 7.473 H POC ABG pCO2 POC ABG pO2 116 H Sodium Potassium Chloride BUN Glucose POC Glucose 110 H Lactic Acid Calcium Urine WBC (Auto) 08/21/16 08/21/16 08/22/16 05:00 05:00 01:39 WBC 13.7 H MCH 26 L RDW 18.1 H Seg Neuts % (Manual) Lymphocytes % (Manual) Seg Neutrophils # Man Lymphocytes # (Manual) Monocytes # (Manual) PT INR POC ABG pH 7.077 L POC ABG pCO2 119.1 H POC ABG pO2 65 L Sodium Potassium 3.5 L Chloride BUN Glucose POC Glucose Lactic Acid Calcium 8.0 L Urine WBC (Auto) 08/22/16 08/22/16 08/22/16 03:13 05:39 09:05 WBC 19.2 H MCH 26 L RDW 18.5 H Seg Neuts % (Manual) Lymphocytes % (Manual) Seg Neutrophils # Man Lymphocytes # (Manual) Monocytes # (Manual) PT INR POC ABG pH 7.293 L 7.337 L POC ABG pCO2 61.9 H 54.2 H POC ABG pO2 73 L 58 L Sodium Potassium Chloride BUN Glucose POC Glucose Lactic Acid Calcium Urine WBC (Auto) 08/22/16 08/22/16 08/22/16 09:05 09:24 11:35 WBC MCH RDW Seg Neuts % (Manual) Lymphocytes % (Manual) Seg Neutrophils # Man Lymphocytes # (Manual) Monocytes # (Manual) PT INR POC ABG pH 7.459 H POC ABG pCO2 46.0 H POC ABG pO2 302 H Sodium Potassium 3.5 L Chloride 95.1 L BUN 19 H Glucose 105 H POC Glucose Lactic Acid Calcium Urine WBC (Auto) 08/23/16 08/23/16 05:10 05:10 WBC 13.5 H MCH 26 L RDW 18.0 H Seg Neuts % (Manual) Lymphocytes % (Manual) Seg Neutrophils # Man Lymphocytes # (Manual) Monocytes # (Manual) PT INR POC ABG pH POC ABG pCO2 POC ABG pO2 Sodium Potassium 3.1 L Chloride BUN 18 H Glucose POC Glucose Lactic Acid Calcium 8.3 L Urine WBC (Auto)
[2016-08-23] MEDS ORDERED: SIMPLE SYRUP FEEDTUBE PRN ×2 (14:35)
[2016-08-23] MEDS ORDERED: SODIUM BICARBONATE FEEDTUBE PRN (14:35)
[2016-08-23] MEDS ORDERED: PANCREAZE DR 10,500 UNIT FEEDTUBE PRN (14:35)
[2016-08-23] MEDS: INDERAL LA PO SCH (14:38)
[2016-08-23] MEDS: SENOKOT S PO SCH ×2 (14:38→21:34)
--- NOTE | 2016-08-23 16:53 | Progress Note ---
Assessment and Plan Assessment and plan: Acute respiratory failure. She was sedated on ventilator. NOW on pressure support following re-intubation, off sedation, continue ICU care, wean as tolerated. Pulmonology following. Severe sepsis with septic shock. On Levaquin, Zosyn, Vanco. Also on Levophed drip. Blood culture no growth, no new fever Hypokalemia- Replace and recheck in am. 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 On Eliquis History of pulmonary embolism. Has been on Eliquis. Repeat CT Angio chest negative for new pulmonary embolism Chronic CHF. Continuie Lasix Hyperthyroidsm. Hypertension. BP stable History of recent stroke Full code status 35 mins critical care time . History Interval history: Patient seen and examined this morning remains on full ventilatory support. No other acute events reported by staff. Hospitalist Physical - Physical exam Narrative exam: VITAL SIGNS: Reviewed. GENERAL: Intubated and mechanically ventilated. Vital signs as documented. HEAD: No signs of head trauma. EYES: Pupils are equal. Extraocular motions intact. EARS: Hearing grossly intact. MOUTH: ET tube in place. NECK: No adenopathy, no JVD. CHEST: Chest with transmitted breath sounds bilaterally. No wheezes, rales, or rhonchi. CARDIAC: Regular rate and rhythm. S1 and S2, without murmurs, gallops, or rubs. VASCULAR: No Edema. Peripheral pulses normal and equal in all extremities. ABDOMEN: Soft, without detectable tenderness. No sign of distention. No rebound or guarding, and no masses palpated. Bowel Sounds normal. MUSCULOSKELETAL: Good range of motion of all major joints. Extremities without clubbing, cyanosis or edema. NEUROLOGIC EXAM: Awake during sedation holiday. No focal sensory or strength deficits. Follows commands. PSYCHIATRIC: Mood normal. SKIN: No rash or lesions. - Constitutional Vitals: Temp Pulse Resp BP Pulse Ox 98.7 F 86 24 118/69 98 08/23/16 12:00 08/23/16 16:30 08/23/16 16:30 08/23/16 16:30 08/23/16 16:30 General appearance: Present: severe distress Results - Labs CBC & Chem 7: 08/23/16 05:10 08/23/16 05:10 Labs: Laboratory Last Values WBC 13.5 K/mm3 (4.5-11.0) H 08/23/16 05:10 RBC 3.93 M/mm3 (3.65-5.03) 08/23/16 05:10 Hgb 10.1 gm/dl (10.1-14.3) 08/23/16 05:10 Hct 32.4 % (30.3-42.9) D 08/23/16 05:10 MCV 83 fl (79-97) 08/23/16 05:10 MCH 26 pg (28-32) L 08/23/16 05:10 MCHC 31 % (30-34) 08/23/16 05:10 RDW 18.0 % (13.2-15.2) H 08/23/16 05:10 Plt Count 303 K/mm3 (140-440) 08/23/16 05:10 Add Manual Diff Complete 08/18/16 20:44 Total Counted 100 08/18/16 20:44 Seg Neutrophils % Cert Pharmacy Tech 08/18/16 20:44 Seg Neuts % (Manual) 71.0 % (40.0-70.0) H 08/18/16 20:44 Band Neutrophils % 19.0 % 08/18/16 20:44 Lymphocytes % (Manual) 5.0 % (13.4-35.0) L 08/18/16 20:44 Reactive Lymphs % (Man) 0 % 08/18/16 20:44 Monocytes % (Manual) 5.0 % (0.0-7.3) 08/18/16 20:44 Eosinophils % (Manual) 0 % (0.0-4.3) 08/18/16 20:44 Basophils % (Manual) 0 % (0.0-1.8) 08/18/16 20:44 Metamyelocytes % 0 % 08/18/16 20:44 Myelocytes % 0 % 08/18/16 20:44 Promyelocytes % 0 % 08/18/16 20:44 Blast Cells % 0 % 08/18/16 20:44 Nucleated RBC % Not Reportable 08/18/16 20:44 Seg Neutrophils # Man 14.7 K/mm3 (1.8-7.7) H 08/18/16 20:44 Band Neutrophils # 3.9 K/mm3 08/18/16 20:44 Lymphocytes # (Manual) 1.0 K/mm3 (1.2-5.4) L 08/18/16 20:44 Abs React Lymphs (Man) 0.0 K/mm3 08/18/16 20:44 Monocytes # (Manual) 1.0 K/mm3 (0.0-0.8) H 08/18/16 20:44 Eosinophils # (Manual) 0.0 K/mm3 (0.0-0.4) 08/18/16 20:44 Basophils # (Manual) 0.0 K/mm3 (0.0-0.1) 08/18/16 20:44 Metamyelocytes # 0.0 K/mm3 08/18/16 20:44 Myelocytes # 0.0 K/mm3 08/18/16 20:44 Promyelocytes # 0.0 K/mm3 08/18/16 20:44 Blast Cells # 0.0 K/mm3 08/18/16 20:44 WBC Morphology Not Reportable 08/18/16 20:44 Hypersegmented Neuts Not Reportable 08/18/16 20:44 Hyposegmented Neuts Not Reportable 08/18/16 20:44 Hypogranular Neuts Not Reportable 08/18/16 20:44 Smudge Cells Not Reportable 08/18/16 20:44 Toxic Granulation Not Reportable 08/18/16 20:44 Toxic Vacuolation Not Reportable 08/18/16 20:44 Dohle Bodies Not Reportable 08/18/16 20:44 Pelger-Huet Anomaly Not Reportable 08/18/16 20:44 Alberto Rods Not Reportable 08/18/16 20:44 Platelet Estimate Consistent w auto 08/18/16 20:44 Clumped Platelets Not Reportable 08/18/16 20:44 Plt Clumps, EDTA Not Reportable 08/18/16 20:44 Large Platelets Not Reportable 08/18/16 20:44 Giant Platelets Not Reportable 08/18/16 20:44 Platelet Satelliting Not Reportable 08/18/16 20:44 Plt Morphology Comment Not Reportable 08/18/16 20:44 RBC Morphology Not Reportable 08/18/16 20:44 Dimorphic RBCs Not Reportable 08/18/16 20:44 Polychromasia Not Reportable 08/18/16 20:44 Hypochromasia 1+ 08/18/16 20:44 Poikilocytosis Not Reportable 08/18/16 20:44 Anisocytosis 1+ 08/18/16 20:44 Microcytosis Not Reportable 08/18/16 20:44 Macrocytosis Not Reportable 08/18/16 20:44 Spherocytes Not Reportable 08/18/16 20:44 Pappenheimer Bodies Not Reportable 08/18/16 20:44 Sickle Cells Not Reportable 08/18/16 20:44 Target Cells Not Reportable 08/18/16 20:44 Tear Drop Cells Not Reportable 08/18/16 20:44 Ovalocytes Few 08/18/16 20:44 Helmet Cells Not Reportable 08/18/16 20:44 [place] Bodies Not Reportable 08/18/16 20:44 [place] Rings Not Reportable 08/18/16 20:44 Dix Cells Not Reportable 08/18/16 20:44 Bite Cells Not Reportable 08/18/16 20:44 Crenated Cell Not Reportable 08/18/16 20:44 Elliptocytes Not Reportable 08/18/16 20:44 Acanthocytes (Spur) Not Reportable 08/18/16 20:44 Rouleaux Not Reportable 08/18/16 20:44 Hemoglobin C Crystals Not Reportable 08/18/16 20:44 Schistocytes Not Reportable 08/18/16 20:44 Malaria parasites Not Reportable 08/18/16 20:44 Gino Bodies Not Reportable 08/18/16 20:44 Hem Pathologist Commnt No 08/18/16 20:44 PT 18.1 Sec. (12.2-14.9) H 08/18/16 20:44 INR 1.50 (0.87-1.13) H 08/18/16 20:44 APTT 28.6 Sec. (24.2-36.6) 08/18/16 20:44 POC ABG pH 7.459 (7.35-7.45) H 08/22/16 11:35 POC ABG pCO2 36.8 (35-45) 08/22/16 11:35 POC ABG pO2 90 (80-105) 08/22/16 11:35 POC ABG HCO3 26.1 08/22/16 11:35 POC ABG Total CO2 27 08/22/16 11:35 POC ABG O2 Sat 97 08/22/16 11:35 POC ABG Base Excess 2 08/22/16 11:35 FiO2 50 % 08/22/16 11:35 Sodium 141 mmol/L (137-145) 08/23/16 05:10 Potassium 3.1 mmol/L (3.6-5.0) L 08/23/16 05:10 Chloride 98.8 mmol/L (98-107) 08/23/16 05:10 Carbon Dioxide 29 mmol/L (22-30) 08/23/16 05:10 Anion Gap 16 mmol/L 08/23/16 05:10 BUN 18 mg/dL (7-17) H 08/23/16 05:10 Creatinine 0.9 mg/dL (0.7-1.2) 08/23/16 05:10 Estimated GFR > 60 ml/min 08/23/16 05:10 BUN/Creatinine Ratio 20.00 % 08/23/16 05:10 Glucose 91 mg/dL (65-100) 08/23/16 05:10 POC Glucose 89 (70-105) 08/23/16 05:25 Lactic Acid 2.70 mmol/L (0.7-2.0) H* 08/19/16 11:00 Calcium 8.3 mg/dL (8.4-10.2) L 08/23/16 05:10 Magnesium 2.30 mg/dL (1.7-2.3) 08/18/16 19:46 Total Bilirubin 0.40 mg/dL (0.1-1.2) 08/18/16 19:46 AST 11 units/L (5-40) 08/18/16 19:46 ALT 29 units/L (7-56) 08/18/16 19:46 Alkaline Phosphatase 95 units/L (35-129) 08/18/16 19:46 Troponin T < 0.010 ng/mL (0.00-0.029) 08/18/16 19:46 NT-Pro-B Natriuret Pep 440.6 pg/mL (0-900) 08/18/16 19:46 Total Protein 6.8 g/dL (6.3-8.2) 08/18/16 19:46 Albumin 2.9 g/dL (3.9-5) L 08/18/16 19:46 Albumin/Globulin Ratio 0.7 % 08/18/16 19:46 Urine Color Yellow (Yellow) 08/18/16 20:44 Urine Turbidity Slightly-cloudy (Clear) 08/18/16 20:44 Urine pH 6.0 (5.0-7.0) 08/18/16 20:44 Ur Specific Nixon 1.012 (1.003-1.030) 08/18/16 20:44 Urine Protein 100 mg/dl mg/dL (Negative) 08/18/16 20:44 Urine Glucose (UA) Neg mg/dL (Negative) 08/18/16 20:44 Urine Ketones Neg mg/dL (Negative) 08/18/16 20:44 Urine Blood Lg (Negative) 08/18/16 20:44 Urine Nitrite Neg (Negative) 08/18/16 20:44 Urine Bilirubin Neg (Negative) 08/18/16 20:44 Urine Urobilinogen < 2.0 mg/dL (<2.0) 08/18/16 20:44 Ur Leukocyte Esterase Neg (Negative) 08/18/16 20:44 Urine WBC (Auto) 9.0 /HPF (0.0-6.0) H 08/18/16 20:44 Urine RBC (Auto) 25.0 /HPF (0.0-6.0) 08/18/16 20:44 U Epithel Cells (Auto) < 1.0 /HPF (0-13.0) 08/18/16 20:44 Urine Bacteria (Auto) 1+ /HPF (Negative) 08/18/16 20:44 Urine Mucus Few /HPF 08/18/16 20:44 Vancomycin Trough 11.5 ug/mL (5.0-20.0) 08/22/16 21:20
[2016-08-23] MEDS: REMERON PO SCH (21:35)
[2016-08-23] MEDS: ULTRAM PO PRN (23:55)
[2016-08-24] MEDS: NEURONTIN PO SCH ×3 (06:19→22:25)
[2016-08-24 07:08] LABS: ISTAT Base Excess 9; ISTAT HCO3 32.6; ISTAT PH 7.488 (7.35-7.45); ISTAT PO2 68 (80-105); ISTAT SO2 94; ISTAT TCO2 34
--- NOTE | 2016-08-24 08:17 | XRay Report ---
AP CHEST :08/24/16 CLINICAL: Intubated.Follow up respiratory failure. COMPARISON:12/23/16 FINDINGS: Tubes are satisfactory and unchanged. Right PICC line tip remains in the distal SVC near the cavoatrial junction. The heart and pulmonary vasculature are normal. Pacer leads in heart. No airspace disease or pleural effusion. No pneumothorax. IMPRESSION: COPD.No congestive heart failure or pneumonia.
--- NOTE | 2016-08-24 08:38 | Progress Note ---
Assessment and Plan Acute respiratory failure. Tolerating spontaneous breathing trial. RSBI is 95 COPD with exacerbation Sepsis. Clinically controlled. No fever. Completing antibiotics. Hypotension. Resolved. Still on norepinephrine at 1 mcg/min Recommendations Wean off norepinephrine, monitor blood pressure Continue antibiotics. SBT, 8/5 cm H2O. If tolerated and ABGs adequate will extubate Discussed with nurse and RT. Critical care time was 31 minutes of [id number] evaluation and coordination of care Subjective Date of service: 08/24/16 Principal diagnosis: acute respiratory failure, COPD exacerbation, sepsis Interval history: No shortness of breath. Alert but sleepy. On pressure support/CPAP trial. Off pressors Objective Vital Signs - 12hr 08/23/16 08/23/16 08/23/16 20:46 21:00 21:16 Temperature Pulse Rate 85 97 H 81 Pulse Rate [ From Monitor] Respiratory 24 20 25 H Rate Blood Pressure 139/70 139/70 136/67 O2 Sat by Pulse 98 96 98 Oximetry 08/23/16 08/23/16 08/23/16 21:30 21:44 21:46 Temperature Pulse Rate 95 H 81 84 Pulse Rate [ From Monitor] Respiratory 20 25 H 16 Rate Blood Pressure 136/79 136/79 136/79 O2 Sat by Pulse 99 100 Oximetry 08/23/16 08/23/16 08/23/16 22:00 22:16 22:30 Temperature Pulse Rate 78 82 80 Pulse Rate [ From Monitor] Respiratory 11 L 15 10 L Rate Blood Pressure 95/58 95/58 108/57 O2 Sat by Pulse 100 99 99 Oximetry 08/23/16 08/23/16 08/23/16 22:46 23:00 23:16 Temperature Pulse Rate 80 108 H 87 Pulse Rate [ From Monitor] Respiratory 11 L 18 11 L Rate Blood Pressure 108/57 128/86 128/86 O2 Sat by Pulse 99 97 100 Oximetry 08/23/16 08/23/16 08/23/16 23:30 23:46 23:55 Temperature Pulse Rate 105 H 89 Pulse Rate [ From Monitor] Respiratory 13 13 13 Rate Blood Pressure 128/86 152/77 O2 Sat by Pulse 97 100 Oximetry 08/24/16 08/24/16 08/24/16 00:00 00:10 00:16 Temperature Pulse Rate 106 H 90 89 Pulse Rate [ 109 H From Monitor] Respiratory 13 11 L 9 L Rate Blood Pressure 145/68 145/68 145/68 O2 Sat by Pulse 99 97 97 Oximetry 08/24/16 08/24/16 08/24/16 00:30 00:41 00:46 Temperature 99.3 F Pulse Rate 77 72 Pulse Rate [ From Monitor] Respiratory 7 L 11 L Rate Blood Pressure 105/52 105/52 O2 Sat by Pulse 95 88 Oximetry 08/24/16 08/24/16 08/24/16 01:00 01:16 01:28 Temperature Pulse Rate 70 72 72 Pulse Rate [ From Monitor] Respiratory 10 L 9 L Rate Blood Pressure 108/55 108/55 118/60 O2 Sat by Pulse 89 97 95 Oximetry 08/24/16 08/24/16 08/24/16 01:30 01:46 02:00 Temperature Pulse Rate 74 109 H 87 Pulse Rate [ From Monitor] Respiratory 10 L 11 L 12 Rate Blood Pressure 118/60 118/60 118/60 O2 Sat by Pulse 94 99 Oximetry 08/24/16 08/24/16 08/24/16 02:16 02:30 02:45 Temperature Pulse Rate 82 81 85 Pulse Rate [ From Monitor] Respiratory 25 H 17 19 Rate Blood Pressure 128/95 53/28 64/34 O2 Sat by Pulse 94 96 Oximetry 08/24/16 08/24/16 08/24/16 03:00 03:15 03:30 Temperature Pulse Rate 76 85 76 Pulse Rate [ From Monitor] Respiratory 11 L 16 16 Rate Blood Pressure 64/34 64/34 89/60 O2 Sat by Pulse 87 94 96 Oximetry 08/24/16 08/24/16 08/24/16 03:45 04:00 04:15 Temperature Pulse Rate 76 81 78 Pulse Rate [ 93 H From Monitor] Respiratory 13 12 9 L Rate Blood Pressure 147/76 121/55 117/63 O2 Sat by Pulse 98 95 96 Oximetry 08/24/16 08/24/16 08/24/16 04:30 04:45 05:00 Temperature Pulse Rate 85 92 H 75 Pulse Rate [ From Monitor] Respiratory 22 19 12 Rate Blood Pressure 100/61 137/76 134/75 O2 Sat by Pulse 99 97 97 Oximetry 08/24/16 08/24/16 08/24/16 05:15 05:30 05:45 Temperature Pulse Rate 83 89 82 Pulse Rate [ From Monitor] Respiratory 13 14 16 Rate Blood Pressure 126/72 143/74 138/73 O2 Sat by Pulse 98 97 98 Oximetry 08/24/16 08/24/16 08/24/16 05:56 06:00 06:15 Temperature 98.5 F Pulse Rate 78 86 Pulse Rate [ From Monitor] Respiratory 13 11 L Rate Blood Pressure 135/77 146/77 O2 Sat by Pulse 98 99 Oximetry 08/24/16 08/24/16 08/24/16 06:30 06:46 07:00 Temperature Pulse Rate 91 H 92 H 92 H Pulse Rate [ From Monitor] Respiratory 25 H 26 H 25 H Rate Blood Pressure 146/77 158/68 140/75 O2 Sat by Pulse 93 94 95 Oximetry 08/24/16 08/24/16 08/24/16 07:15 07:30 07:45 Temperature Pulse Rate 80 81 91 H Pulse Rate [ From Monitor] Respiratory 24 25 H 24 Rate Blood Pressure 147/74 125/60 151/76 O2 Sat by Pulse 96 97 93 Oximetry 08/24/16 08/24/16 07:53 08:00 Temperature 98.7 F Pulse Rate 87 Pulse Rate [ 86 From Monitor] Respiratory 25 H Rate Blood Pressure 153/72 O2 Sat by Pulse 94 Oximetry Constitutional: no acute distress, alert Eyes: non-icteric ENT: other (orally intubated, on vent) Neck: supple Ascultation: Bilateral: clear, diminished breath sounds Percussion: Bilateral: not dull Cardiovascular: regular rate and rhythm Gastrointestinal: normoactive bowel sounds Neurologic: other (R ASS +1) Psychiatric: mood appropriate CBC and BMP: 08/23/16 05:10 08/23/16 05:10 ABG, PT/INR, D-dimer: ABG POC ABG pH 7.488 (7.35-7.45) H 08/24/16 05:22 POC ABG pCO2 43.0 (35-45) 08/24/16 05:22 POC ABG pO2 68 (80-105) L 08/24/16 05:22 POC ABG HCO3 32.6 08/24/16 05:22 POC ABG Total CO2 34 08/24/16 05:22 POC ABG O2 Sat 94 08/24/16 05:22 PT/INR, D-dimer PT 18.1 Sec. (12.2-14.9) H 08/18/16 20:44 INR 1.50 (0.87-1.13) H 08/18/16 20:44 Abnormal lab findings: Abnormal Labs 08/18/16 08/18/16 08/18/16 20:44 20:44 20:44 WBC 20.7 H MCH 26 L RDW 17.3 H Seg Neuts % (Manual) 71.0 H Lymphocytes % (Manual) 5.0 L Seg Neutrophils # Man 14.7 H Lymphocytes # (Manual) 1.0 L Monocytes # (Manual) 1.0 H PT 18.1 H INR 1.50 H POC ABG pH POC ABG pCO2 POC ABG pO2 Sodium Potassium Chloride BUN Glucose POC Glucose Lactic Acid Calcium Urine WBC (Auto) 9.0 H 08/18/16 08/18/16 08/18/16 20:44 21:13 21:55 WBC MCH RDW Seg Neuts % (Manual) Lymphocytes % (Manual) Seg Neutrophils # Man Lymphocytes # (Manual) Monocytes # (Manual) PT INR POC ABG pH 7.569 H POC ABG pCO2 POC ABG pO2 182 H Sodium Potassium Chloride BUN Glucose POC Glucose Lactic Acid 2.10 H* 2.40 H* Calcium Urine WBC (Auto) 08/19/16 08/19/16 08/19/16 01:20 01:28 04:46 WBC MCH RDW Seg Neuts % (Manual) Lymphocytes % (Manual) Seg Neutrophils # Man Lymphocytes # (Manual) Monocytes # (Manual) PT INR POC ABG pH 7.521 H POC ABG pCO2 33.8 L POC ABG pO2 79 L Sodium Potassium Chloride BUN Glucose POC Glucose 114 H Lactic Acid 2.10 H* Calcium Urine WBC (Auto) 08/19/16 08/19/16 08/19/16 05:35 08:43 08:43 WBC 13.3 H MCH 26 L RDW 17.6 H Seg Neuts % (Manual) Lymphocytes % (Manual) Seg Neutrophils # Man Lymphocytes # (Manual) Monocytes # (Manual) PT INR POC ABG pH POC ABG pCO2 POC ABG pO2 Sodium 136 L Potassium Chloride 93.8 L BUN Glucose 119 H POC Glucose 113 H Lactic Acid Calcium 8.0 L Urine WBC (Auto) 08/19/16 08/20/16 08/20/16 11:00 04:00 04:00 WBC 14.9 H MCH 26 L RDW 18.0 H Seg Neuts % (Manual) Lymphocytes % (Manual) Seg Neutrophils # Man Lymphocytes # (Manual) Monocytes # (Manual) PT INR POC ABG pH POC ABG pCO2 POC ABG pO2 Sodium Potassium Chloride 97.2 L BUN 18 H Glucose 105 H POC Glucose Lactic Acid 2.70 H* Calcium 7.9 L Urine WBC (Auto) 08/20/16 08/20/16 08/21/16 04:31 11:25 04:58 WBC MCH RDW Seg Neuts % (Manual) Lymphocytes % (Manual) Seg Neutrophils # Man Lymphocytes # (Manual) Monocytes # (Manual) PT INR POC ABG pH 7.498 H 7.473 H POC ABG pCO2 POC ABG pO2 116 H Sodium Potassium Chloride BUN Glucose POC Glucose 110 H Lactic Acid Calcium Urine WBC (Auto) 08/21/16 08/21/16 08/22/16 05:00 05:00 01:39 WBC 13.7 H MCH 26 L RDW 18.1 H Seg Neuts % (Manual) Lymphocytes % (Manual) Seg Neutrophils # Man Lymphocytes # (Manual) Monocytes # (Manual) PT INR POC ABG pH 7.077 L POC ABG pCO2 119.1 H POC ABG pO2 65 L Sodium Potassium 3.5 L Chloride BUN Glucose POC Glucose Lactic Acid Calcium 8.0 L Urine WBC (Auto) 08/22/16 08/22/16 08/22/16 03:13 05:39 09:05 WBC 19.2 H MCH 26 L RDW 18.5 H Seg Neuts % (Manual) Lymphocytes % (Manual) Seg Neutrophils # Man Lymphocytes # (Manual) Monocytes # (Manual) PT INR POC ABG pH 7.293 L 7.337 L POC ABG pCO2 61.9 H 54.2 H POC ABG pO2 73 L 58 L Sodium Potassium Chloride BUN Glucose POC Glucose Lactic Acid Calcium Urine WBC (Auto) 08/22/16 08/22/16 08/22/16 09:05 09:24 11:35 WBC MCH RDW Seg Neuts % (Manual) Lymphocytes % (Manual) Seg Neutrophils # Man Lymphocytes # (Manual) Monocytes # (Manual) PT INR POC ABG pH 7.459 H POC ABG pCO2 46.0 H POC ABG pO2 302 H Sodium Potassium 3.5 L Chloride 95.1 L BUN 19 H Glucose 105 H POC Glucose Lactic Acid Calcium Urine WBC (Auto) 0608/23/16 08/24/16 05:10 05:10 05:22 WBC 13.5 H MCH 26 L RDW 18.0 H Seg Neuts % (Manual) Lymphocytes % (Manual) Seg Neutrophils # Man Lymphocytes # (Manual) Monocytes # (Manual) PT INR POC ABG pH 7.488 H POC ABG pCO2 POC ABG pO2 68 L Sodium Potassium 3.1 L Chloride BUN 18 H Glucose POC Glucose Lactic Acid Calcium 8.3 L Urine WBC (Auto)
[2016-08-24] MEDS: PEPCID PO SCH ×2 (09:45→22:26)
[2016-08-24] MEDS: LEVAQUIN 750MG/150ML 750 MG/150 ML BAG IV SCH (09:45)
[2016-08-24] MEDS: SENOKOT S PO SCH ×2 (09:45→22:26)
[2016-08-24] MEDS: TAPAZOLE PO SCH (09:46)
[2016-08-24] MEDS: CLARITIN PO SCH (09:46)
[2016-08-24] MEDS: ELIQUIS PO SCH ×2 (09:46→22:25)
[2016-08-24 11:47] LABS: ISTAT Base Excess 9; ISTAT HCO3 33.7; ISTAT PCO2 53.1 (35-45); ISTAT PO2 59 (80-105); ISTAT SO2 90; ISTAT TCO2 35
--- NOTE | 2016-08-24 16:21 | Progress Note ---
Assessment and Plan Assessment and plan: Acute respiratory failure. She was sedated on ventilator. NOW on pressure support following re-intubation, off sedation, continue ICU care, wean as tolerated. Pulmonology following. plan for extubation today, will get speech eval post extubation Severe sepsis with septic shock. On Levaquin. Blood culture no growth, no new fever Hypokalemia- Replace and recheck in am. 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 On Eliquis History of pulmonary embolism. Has been on Eliquis. Repeat CT Angio chest negative for new pulmonary embolism Chronic CHF. Continuie Lasix Hyperthyroidsm. continue current therapy Hypertension. elevated, will start on hydralazine prn. LEVO DRIP WEANED OFF. History of recent stroke Full code status 35 mins critical care time . History Interval history: Patient seen and examined this morning remains on full ventilatory support. No other acute events reported by staff. Hospitalist Physical - Physical exam Narrative exam: VITAL SIGNS: Reviewed. GENERAL: Intubated and mechanically ventilated. Vital signs as documented. HEAD: No signs of head trauma. EYES: Pupils are equal. Extraocular motions intact. EARS: Hearing grossly intact. MOUTH: ET tube in place. NECK: No adenopathy, no JVD. CHEST: Chest with transmitted breath sounds bilaterally. No wheezes, rales, or rhonchi. CARDIAC: Regular rate and rhythm. S1 and S2, without murmurs, gallops, or rubs. VASCULAR: No Edema. Peripheral pulses normal and equal in all extremities. ABDOMEN: Soft, without detectable tenderness. No sign of distention. No rebound or guarding, and no masses palpated. Bowel Sounds normal. MUSCULOSKELETAL: Good range of motion of all major joints. Extremities without clubbing, cyanosis or edema. NEUROLOGIC EXAM: Awake during sedation holiday. No focal sensory or strength deficits. Follows commands. PSYCHIATRIC: Mood normal. SKIN: No rash or lesions. - Constitutional Vitals: Temp Pulse Resp BP Pulse Ox 97.4 F L 85 26 H 168/78 92 08/24/16 16:00 08/24/16 13:45 08/24/16 13:45 08/24/16 13:30 08/24/16 13:45 General appearance: Present: severe distress Results - Labs CBC & Chem 7: 08/23/16 05:10 08/23/16 05:10 Labs: Laboratory Last Values WBC 13.5 K/mm3 (4.5-11.0) H 08/23/16 05:10 RBC 3.93 M/mm3 (3.65-5.03) 08/23/16 05:10 Hgb 10.1 gm/dl (10.1-14.3) 08/23/16 05:10 Hct 32.4 % (30.3-42.9) D 08/23/16 05:10 MCV 83 fl (79-97) 08/23/16 05:10 MCH 26 pg (28-32) L 08/23/16 05:10 MCHC 31 % (30-34) 08/23/16 05:10 RDW 18.0 % (13.2-15.2) H 08/23/16 05:10 Plt Count 303 K/mm3 (140-440) 08/23/16 05:10 Add Manual Diff Complete 08/18/16 20:44 Total Counted 100 08/18/16 20:44 Seg Neutrophils % [employer] 08/18/16 20:44 Seg Neuts % (Manual) 71.0 % (40.0-70.0) H 08/18/16 20:44 Band Neutrophils % 19.0 % 08/18/16 20:44 Lymphocytes % (Manual) 5.0 % (13.4-35.0) L 08/18/16 20:44 Reactive Lymphs % (Man) 0 % 08/18/16 20:44 Monocytes % (Manual) 5.0 % (0.0-7.3) 08/18/16 20:44 Eosinophils % (Manual) 0 % (0.0-4.3) 08/18/16 20:44 Basophils % (Manual) 0 % (0.0-1.8) 08/18/16 20:44 Metamyelocytes % 0 % 08/18/16 20:44 Myelocytes % 0 % 08/18/16 20:44 Promyelocytes % 0 % 08/18/16 20:44 Blast Cells % 0 % 08/18/16 20:44 Nucleated RBC % Not Reportable 08/18/16 20:44 Seg Neutrophils # Man 14.7 K/mm3 (1.8-7.7) H 08/18/16 20:44 Band Neutrophils # 3.9 K/mm3 08/18/16 20:44 Lymphocytes # (Manual) 1.0 K/mm3 (1.2-5.4) L 08/18/16 20:44 Abs React Lymphs (Man) 0.0 K/mm3 08/18/16 20:44 Monocytes # (Manual) 1.0 K/mm3 (0.0-0.8) H 08/18/16 20:44 Eosinophils # (Manual) 0.0 K/mm3 (0.0-0.4) 08/18/16 20:44 Basophils # (Manual) 0.0 K/mm3 (0.0-0.1) 08/18/16 20:44 Metamyelocytes # 0.0 K/mm3 08/18/16 20:44 Myelocytes # 0.0 K/mm3 08/18/16 20:44 Promyelocytes # 0.0 K/mm3 08/18/16 20:44 Blast Cells # 0.0 K/mm3 08/18/16 20:44 WBC Morphology Not Reportable 08/18/16 20:44 Hypersegmented Neuts Not Reportable 08/18/16 20:44 Hyposegmented Neuts Not Reportable 08/18/16 20:44 Hypogranular Neuts Not Reportable 08/18/16 20:44 Smudge Cells Not Reportable 08/18/16 20:44 Toxic Granulation Not Reportable 08/18/16 20:44 Toxic Vacuolation Not Reportable 08/18/16 20:44 Dohle Bodies Not Reportable 08/18/16 20:44 Pelger-Huet Anomaly Not Reportable 08/18/16 20:44 Alberto Rods Not Reportable 08/18/16 20:44 Platelet Estimate Consistent w auto 08/18/16 20:44 Clumped Platelets Not Reportable 08/18/16 20:44 Plt Clumps, EDTA Not Reportable 08/18/16 20:44 Large Platelets Not Reportable 08/18/16 20:44 Giant Platelets Not Reportable 08/18/16 20:44 Platelet Satelliting Not Reportable 08/18/16 20:44 Plt Morphology Comment Not Reportable 08/18/16 20:44 RBC Morphology Not Reportable 08/18/16 20:44 Dimorphic RBCs Not Reportable 08/18/16 20:44 Polychromasia Not Reportable 08/18/16 20:44 Hypochromasia 1+ 06/08/17 20:44 Poikilocytosis Not Reportable 08/18/16 20:44 Anisocytosis 1+ 08/18/16 20:44 Microcytosis Not Reportable 08/18/16 20:44 Macrocytosis Not Reportable 08/18/16 20:44 Spherocytes Not Reportable 08/18/16 20:44 Pappenheimer Bodies Not Reportable 08/18/16 20:44 Sickle Cells Not Reportable 08/18/16 20:44 Target Cells Not Reportable 08/18/16 20:44 Tear Drop Cells Not Reportable 08/18/16 20:44 Ovalocytes Few 08/18/16 20:44 Helmet Cells Not Reportable 08/18/16 20:44 Al[place] Bodies Not Reportable 08/18/16 20:44 Minter Rings Not Reportable 08/18/16 20:44 Valerie Cells Not Reportable 08/18/16 20:44 Bite Cells Not Reportable 08/18/16 20:44 Crenated Cell Not Reportable 08/18/16 20:44 Elliptocytes Not Reportable 08/18/16 20:44 Acanthocytes (Spur) Not Reportable 08/18/16 20:44 Rouleaux Not Reportable 08/18/16 20:44 Hemoglobin C Crystals Not Reportable 08/18/16 20:44 Schistocytes Not Reportable 08/18/16 20:44 Malaria parasites Not Reportable 08/18/16 20:44 Gino Bodies Not Reportable 08/18/16 20:44 Hem Pathologist Commnt No 08/18/16 20:44 PT 18.1 Sec. (12.2-14.9) H 08/18/16 20:44 INR 1.50 (0.87-1.13) H 08/18/16 20:44 APTT 28.6 Sec. (24.2-36.6) 08/18/16 20:44 POC ABG pH 7.410 (7.35-7.45) 08/24/16 11:40 POC ABG pCO2 53.1 (35-45) H 08/24/16 11:40 POC ABG pO2 59 (80-105) L 08/24/16 11:40 POC ABG HCO3 33.7 08/24/16 11:40 POC ABG Total CO2 35 08/24/16 11:40 POC ABG O2 Sat 90 08/24/16 11:40 POC ABG Base Excess 9 08/24/16 11:40 FiO2 30 % 08/24/16 11:40 Sodium 141 mmol/L (137-145) 08/23/16 05:10 Potassium 3.1 mmol/L (3.6-5.0) L 08/23/16 05:10 Chloride 98.8 mmol/L (98-107) 08/23/16 05:10 Carbon Dioxide 29 mmol/L (22-30) 08/23/16 05:10 Anion Gap 16 mmol/L 08/23/16 05:10 BUN 18 mg/dL (7-17) H 08/23/16 05:10 Creatinine 0.9 mg/dL (0.7-1.2) 08/23/16 05:10 Estimated GFR > 60 ml/min 08/23/16 05:10 BUN/Creatinine Ratio 20.00 % 08/23/16 05:10 Glucose 91 mg/dL (65-100) 08/23/16 05:10 POC Glucose 89 (70-105) 08/23/16 05:25 Lactic Acid 2.70 mmol/L (0.7-2.0) H* 08/19/16 11:00 Calcium 8.3 mg/dL (8.4-10.2) L 08/23/16 05:10 Magnesium 2.30 mg/dL (1.7-2.3) 08/18/16 19:46 Total Bilirubin 0.40 mg/dL (0.1-1.2) 08/18/16 19:46 AST 11 units/L (5-40) 08/18/16 19:46 ALT 29 units/L (7-56) 08/18/16 19:46 Alkaline Phosphatase 95 units/L (35-129) 08/18/16 19:46 Troponin T < 0.010 ng/mL (0.00-0.029) 08/18/16 19:46 NT-Pro-B Natriuret Pep 440.6 pg/mL (0-900) 08/18/16 19:46 Total Protein 6.8 g/dL (6.3-8.2) 08/18/16 19:46 Albumin 2.9 g/dL (3.9-5) L 08/18/16 19:46 Albumin/Globulin Ratio 0.7 % 08/18/16 19:46 Urine Color Yellow (Yellow) 08/18/16 20:44 Urine Turbidity Slightly-cloudy (Clear) 08/18/16 20:44 Urine pH 6.0 (5.0-7.0) 08/18/16 20:44 Ur Specific [place] 1.012 (1.003-1.030) 08/18/16 20:44 Urine Protein 100 mg/dl mg/dL (Negative) 08/18/16 20:44 Urine Glucose (UA) Neg mg/dL (Negative) 08/18/16 20:44 Urine Ketones Neg mg/dL (Negative) 08/18/16 20:44 Urine Blood Lg (Negative) 08/18/16 20:44 Urine Nitrite Neg (Negative) 08/18/16 20:44 Urine Bilirubin Neg (Negative) 08/18/16 20:44 Urine Urobilinogen < 2.0 mg/dL (<2.0) 08/18/16 20:44 Ur Leukocyte Esterase Neg (Negative) 08/18/16 20:44 Urine WBC (Auto) 9.0 /HPF (0.0-6.0) H 08/18/16 20:44 Urine RBC (Auto) 25.0 /HPF (0.0-6.0) 08/18/16 20:44 U Epithel Cells (Auto) < 1.0 /HPF (0-13.0) 08/18/16 20:44 Urine Bacteria (Auto) 1+ /HPF (Negative) 08/18/16 20:44 Urine Mucus Few /HPF 08/18/16 20:44 Vancomycin Trough 11.5 ug/mL (5.0-20.0) 08/22/16 21:20
[2016-08-24] MEDS: APRESOLINE IV PRN (17:12)
[2016-08-24] MEDS: D5/0.45NS 1,000 ML IV SCH (18:30)
--- NOTE | 2016-08-24 18:31 | XRay Report ---
FINAL REPORT EXAM: XR ABDOMEN 1V AP HISTORY: NG tube placement TECHNIQUE: Single-view chest PRIORS: Chest radiograph 08/24/2016 FINDINGS: Right PICC line, inferior vena cava filter and pacing unit are re-identified. Metallic tip feeding tube is re-identified in similar position as the prior study. Patient is rotated to the right side. There is increased opacity in the right lung base. Heart size is stable. No acute osseous abnormality is identified. IMPRESSION: 1. Feeding tube tip overlies the mediastinum. This may lie in the thoracic esophagus. There is a notation seen the the nurse is aware of the appearance and has removed the tube. 2. Atelectasis versus infiltrate in the region of the right costophrenic angle. This appearance may be exaggerated by patient positioning.
--- NOTE | 2016-08-24 18:37 | XRay Report ---
FINAL REPORT EXAM: XR ABDOMEN 1V AP HISTORY: NG placement TECHNIQUE: Single-view chest PRIORS: Chest radiograph 08/21/2016 and subsequent radiograph from 08/24/2016 FINDINGS: Right PICC line, dual lead pacing unit in inferior vena cava filter are noted. Metallic tip feeding tube overlies the mediastinum. Lung apices are cropped from the topography of the study. There is increased opacity in the right lung base. Heart size is within normal limits. No acute osseous abnormality is identified. IMPRESSION: 1. Metallic tip feeding tube overlies the mediastinum. The tip may lie in the right mainstem bronchus or bronchus intermedius. There is a notation stating that the nurse was aware of the placement, and the feeding tube was subsequently repositioned and later removed completely. 2. Atelectasis versus infiltrate in the right lung base.
[2016-08-24] MEDS: REMERON PO SCH (22:26)
[2016-08-25] MEDS: NOVOLOG SUB-Q SCH ×3 (01:32→18:35)
[2016-08-25 06:50] LABS: Hematocrit 37.9 % (30.3-42.9); Hemoglobin 11.8 gm/dl (10.1-14.3); Mean Corpuscular HGB Conc 31 % (30-34); Mean Corpuscular Hemoglobin 26 pg (28-32); Mean Corpuscular Volume 84 fl (79-97); Platelet Count 355 K/mm3 (140-440); Red Blood Count 4.52 M/mm3 (3.65-5.03); Red Cell Distribution Width 18.6 % (13.2-15.2); White Blood Count 14.4 K/mm3 (4.5-11.0)
[2016-08-25 06:53] LABS: Anion Gap 13 mmol/L; BUN/Creatinine Ratio 23.33; Blood Urea Nitrogen 14 mg/dL (7-17); Calcium 8.7 mg/dL (8.4-10.2); Carbon Dioxide 33 mmol/L (22-30); Chloride 99.9 mmol/L (98-107); Glucose 122 mg/dL (65-100); Sodium 142 mmol/L (137-145)
--- NOTE | 2016-08-25 08:22 | Progress Note ---
Assessment and Plan Acute respiratory failure. Might need higher BPAP setting COPD with exacerbation Sepsis. Clinically controlled. No fever. Completing antibiotics. Hypotension. Resolved. Rec: Increase BPAP to 14-15/5 cm H2O Monitor V/S, oximetry Nebs Hold any sedatives Discussed with nurse and RT. Critical care time was 31 minutes of [id number] evaluation and coordination of care Subjective Date of service: 08/25/16 Principal diagnosis: acute respiratory failure, COPD exacerbation, sepsis Interval history: No SOB or cough Objective Vital Signs - 12hr 08/24/16 08/24/16 08/24/16 20:30 20:48 21:00 Temperature 95.0 F L Pulse Rate 96 H 90 95 H Pulse Rate [ From Monitor] Respiratory 24 23 23 Rate Blood Pressure 118/62 118/62 129/69 O2 Sat by Pulse 98 95 99 Oximetry 08/24/16 08/24/16 08/24/16 21:16 21:30 21:46 Temperature Pulse Rate 89 83 88 Pulse Rate [ From Monitor] Respiratory 25 H 25 H 26 H Rate Blood Pressure 129/69 129/69 129/69 O2 Sat by Pulse 97 97 99 Oximetry 08/24/16 08/24/16 08/24/16 22:00 22:16 22:30 Temperature Pulse Rate 85 82 76 Pulse Rate [ From Monitor] Respiratory 28 H 25 H 30 H Rate Blood Pressure 122/59 122/59 122/59 O2 Sat by Pulse 98 97 97 Oximetry 08/24/16 08/24/16 08/24/16 22:46 23:00 23:16 Temperature Pulse Rate 79 84 84 Pulse Rate [ From Monitor] Respiratory 25 H 27 H 28 H Rate Blood Pressure 122/59 131/69 131/69 O2 Sat by Pulse 99 98 98 Oximetry 08/24/16 08/24/16 08/24/16 23:30 23:40 23:46 Temperature Pulse Rate 85 82 82 Pulse Rate [ From Monitor] Respiratory 29 H 30 H 29 H Rate Blood Pressure 131/69 131/69 131/69 O2 Sat by Pulse 98 98 98 Oximetry 08/25/16 08/25/16 08/25/16 00:00 00:07 00:16 Temperature Pulse Rate 83 86 77 Pulse Rate [ From Monitor] Respiratory 31 H 30 H 29 H Rate Blood Pressure 130/69 130/69 131/69 O2 Sat by Pulse 96 97 95 Oximetry 08/25/16 08/25/16 08/25/16 00:30 00:46 01:00 Temperature Pulse Rate 82 95 H 93 H Pulse Rate [ From Monitor] Respiratory 29 H 14 32 H Rate Blood Pressure 131/69 130/69 137/70 O2 Sat by Pulse 94 95 93 Oximetry 08/25/16 08/25/16 08/25/16 01:16 01:30 01:46 Temperature Pulse Rate 85 93 H 89 Pulse Rate [ From Monitor] Respiratory 22 35 H 37 H Rate Blood Pressure 137/70 137/70 137/70 O2 Sat by Pulse 93 96 94 Oximetry 08/25/16 08/25/16 08/25/16 02:00 02:16 02:30 Temperature Pulse Rate 101 H 104 H 105 H Pulse Rate [ From Monitor] Respiratory 36 H 33 H 33 H Rate Blood Pressure 137/78 137/78 137/78 O2 Sat by Pulse 95 96 97 Oximetry 08/25/16 08/25/16 08/25/16 02:46 03:00 03:16 Temperature Pulse Rate 103 H 106 H 107 H Pulse Rate [ From Monitor] Respiratory 38 H 37 H 37 H Rate Blood Pressure 137/78 139/67 139/67 O2 Sat by Pulse 99 96 97 Oximetry 08/25/16 08/25/16 08/25/16 03:30 03:46 04:00 Temperature 97.8 F Pulse Rate 106 H 106 H 108 H Pulse Rate [ 84 From Monitor] Respiratory 37 H 37 H 37 H Rate Blood Pressure 139/67 139/67 146/77 O2 Sat by Pulse 97 99 97 Oximetry 08/25/16 08/25/16 08/25/16 04:16 04:30 04:33 Temperature Pulse Rate 110 H 106 H 113 H Pulse Rate [ From Monitor] Respiratory 36 H 38 H 35 H Rate Blood Pressure 146/77 146/77 146/77 O2 Sat by Pulse 99 98 98 Oximetry 08/25/16 08/25/16 08/25/16 04:46 05:00 05:16 Temperature Pulse Rate 109 H 109 H 108 H Pulse Rate [ From Monitor] Respiratory 35 H 39 H 40 H Rate Blood Pressure 146/77 146/70 146/70 O2 Sat by Pulse 96 95 97 Oximetry 08/25/16 08/25/16 08/25/16 05:30 05:46 06:00 Temperature Pulse Rate 108 H 110 H 106 H Pulse Rate [ From Monitor] Respiratory 39 H 39 H 41 H Rate Blood Pressure 146/70 146/70 143/77 O2 Sat by Pulse 96 96 96 Oximetry 08/25/16 08/25/16 06:16 07:36 Temperature Pulse Rate 109 H 111 H Pulse Rate [ From Monitor] Respiratory 41 H 25 H Rate Blood Pressure 143/77 150/73 O2 Sat by Pulse 96 98 Oximetry Constitutional: no acute distress, alert, other (mild distress,on BPAP) Eyes: non-icteric ENT: other (orally intubated, on vent) Neck: supple Ascultation: Bilateral: clear, diminished breath sounds Percussion: Bilateral: not dull Cardiovascular: regular rate and rhythm, other (tachycardic) Gastrointestinal: normoactive bowel sounds Neurologic: other (R ASS +1) Psychiatric: mood appropriate CBC and BMP: 08/25/16 05:45 08/25/16 05:45 ABG, PT/INR, D-dimer: ABG POC ABG pH 7.410 (7.35-7.45) 08/24/16 11:40 POC ABG pCO2 53.1 (35-45) H 08/24/16 11:40 POC ABG pO2 59 (80-105) L 08/24/16 11:40 POC ABG HCO3 33.7 08/24/16 11:40 POC ABG Total CO2 35 08/24/16 11:40 POC ABG O2 Sat 90 08/24/16 11:40 PT/INR, D-dimer PT 18.1 Sec. (12.2-14.9) H 08/18/16 20:44 INR 1.50 (0.87-1.13) H 08/18/16 20:44 Abnormal lab findings: Abnormal Labs 08/18/16 08/18/16 08/18/16 20:44 20:44 20:44 WBC 20.7 H MCH 26 L RDW 17.3 H Seg Neuts % (Manual) 71.0 H Lymphocytes % (Manual) 5.0 L Seg Neutrophils # Man 14.7 H Lymphocytes # (Manual) 1.0 L Monocytes # (Manual) 1.0 H PT 18.1 H INR 1.50 H POC ABG pH POC ABG pCO2 POC ABG pO2 Sodium Potassium Chloride Carbon Dioxide BUN Creatinine Glucose POC Glucose Lactic Acid Calcium Urine WBC (Auto) 9.0 H 06/08/17 06/08/17 06/08/17 20:44 21:13 21:55 WBC MCH RDW Seg Neuts % (Manual) Lymphocytes % (Manual) Seg Neutrophils # Man Lymphocytes # (Manual) Monocytes # (Manual) PT INR POC ABG pH 7.569 H POC ABG pCO2 POC ABG pO2 182 H Sodium Potassium Chloride Carbon Dioxide BUN Creatinine Glucose POC Glucose Lactic Acid 2.10 H* 2.40 H* Calcium Urine WBC (Auto) 08/19/16 08/19/16 08/19/16 01:20 01:28 04:46 WBC MCH RDW Seg Neuts % (Manual) Lymphocytes % (Manual) Seg Neutrophils # Man Lymphocytes # (Manual) Monocytes # (Manual) PT INR POC ABG pH 7.521 H POC ABG pCO2 33.8 L POC ABG pO2 79 L Sodium Potassium Chloride Carbon Dioxide BUN Creatinine Glucose POC Glucose 114 H Lactic Acid 2.10 H* Calcium Urine WBC (Auto) 08/19/16 08/19/16 08/19/16 05:35 08:43 08:43 WBC 13.3 H MCH 26 L RDW 17.6 H Seg Neuts % (Manual) Lymphocytes % (Manual) Seg Neutrophils # Man Lymphocytes # (Manual) Monocytes # (Manual) PT INR POC ABG pH POC ABG pCO2 POC ABG pO2 Sodium 136 L Potassium Chloride 93.8 L Carbon Dioxide BUN Creatinine Glucose 119 H POC Glucose 113 H Lactic Acid Calcium 8.0 L Urine WBC (Auto) 08/19/16 08/20/16 08/20/16 11:00 04:00 04:00 WBC 14.9 H MCH 26 L RDW 18.0 H Seg Neuts % (Manual) Lymphocytes % (Manual) Seg Neutrophils # Man Lymphocytes # (Manual) Monocytes # (Manual) PT INR POC ABG pH POC ABG pCO2 POC ABG pO2 Sodium Potassium Chloride 97.2 L Carbon Dioxide BUN 18 H Creatinine Glucose 105 H POC Glucose Lactic Acid 2.70 H* Calcium 7.9 L Urine WBC (Auto) 08/20/16 08/20/16 08/21/16 04:31 11:25 04:58 WBC MCH RDW Seg Neuts % (Manual) Lymphocytes % (Manual) Seg Neutrophils # Man Lymphocytes # (Manual) Monocytes # (Manual) PT INR POC ABG pH 7.498 H 7.473 H POC ABG pCO2 POC ABG pO2 116 H Sodium Potassium Chloride Carbon Dioxide BUN Creatinine Glucose POC Glucose 110 H Lactic Acid Calcium Urine WBC (Auto) 08/21/16 08/21/16 08/22/16 05:00 05:00 01:39 WBC 13.7 H MCH 26 L RDW 18.1 H Seg Neuts % (Manual) Lymphocytes % (Manual) Seg Neutrophils # Man Lymphocytes # (Manual) Monocytes # (Manual) PT INR POC ABG pH 7.077 L POC ABG pCO2 119.1 H POC ABG pO2 65 L Sodium Potassium 3.5 L Chloride Carbon Dioxide BUN Creatinine Glucose POC Glucose Lactic Acid Calcium 8.0 L Urine WBC (Auto) 08/22/16 08/22/16 08/22/16 03:13 05:39 09:05 WBC 19.2 H MCH 26 L RDW 18.5 H Seg Neuts % (Manual) Lymphocytes % (Manual) Seg Neutrophils # Man Lymphocytes # (Manual) Monocytes # (Manual) PT INR POC ABG pH 7.293 L 7.337 L POC ABG pCO2 61.9 H 54.2 H POC ABG pO2 73 L 58 L Sodium Potassium Chloride Carbon Dioxide BUN Creatinine Glucose POC Glucose Lactic Acid Calcium Urine WBC (Auto) 08/22/16 08/22/16 08/22/16 09:05 09:24 11:35 WBC MCH RDW Seg Neuts % (Manual) Lymphocytes % (Manual) Seg Neutrophils # Man Lymphocytes # (Manual) Monocytes # (Manual) PT INR POC ABG pH 7.459 H POC ABG pCO2 46.0 H POC ABG pO2 302 H Sodium Potassium 3.5 L Chloride 95.1 L Carbon Dioxide BUN 19 H Creatinine Glucose 105 H POC Glucose Lactic Acid Calcium Urine WBC (Auto) 08/23/16 08/23/16 08/24/16 05:10 05:10 05:22 WBC 13.5 H MCH 26 L RDW 18.0 H Seg Neuts % (Manual) Lymphocytes % (Manual) Seg Neutrophils # Man Lymphocytes # (Manual) Monocytes # (Manual) PT INR POC ABG pH 7.488 H POC ABG pCO2 POC ABG pO2 68 L Sodium Potassium 3.1 L Chloride Carbon Dioxide BUN 18 H Creatinine Glucose POC Glucose Lactic Acid Calcium 8.3 L Urine WBC (Auto) 08/24/16 08/25/16 08/25/16 11:40 01:19 05:45 WBC 14.4 H MCH 26 L RDW 18.6 H Seg Neuts % (Manual) Lymphocytes % (Manual) Seg Neutrophils # Man Lymphocytes # (Manual) Monocytes # (Manual) PT INR POC ABG pH POC ABG pCO2 53.1 H POC ABG pO2 59 L Sodium Potassium Chloride Carbon Dioxide BUN Creatinine Glucose POC Glucose 133 H Lactic Acid Calcium Urine WBC (Auto) 08/25/16 05:45 WBC MCH RDW Seg Neuts % (Manual) Lymphocytes % (Manual) Seg Neutrophils # Man Lymphocytes # (Manual) Monocytes # (Manual) PT INR POC ABG pH POC ABG pCO2 POC ABG pO2 Sodium Potassium Chloride Carbon Dioxide 33 H BUN Creatinine 0.6 L Glucose 122 H POC Glucose Lactic Acid Calcium Urine WBC (Auto)
[2016-08-25] MEDS: APRESOLINE IV PRN (09:00)
[2016-08-25] MEDS: PROVENTIL IH SCH ×3 (11:05→19:50)
[2016-08-25] MEDS: CLARITIN PO SCH (12:57)
[2016-08-25] MEDS: PEPCID PO SCH ×2 (12:57→21:40)
[2016-08-25] MEDS: ELIQUIS PO SCH ×2 (12:57→21:37)
[2016-08-25] MEDS: SENOKOT S PO SCH ×2 (12:58→21:41)
[2016-08-25] MEDS: TAPAZOLE PO SCH (12:58)
[2016-08-25] MEDS: LEVAQUIN 750MG/150ML 750 MG/150 ML BAG IV SCH (13:00)
[2016-08-25] MEDS: NEURONTIN PO SCH ×2 (14:00→21:36)
[2016-08-25] MEDS: D5/0.45NS 1,000 ML IV SCH (15:27)
--- NOTE | 2016-08-25 17:53 | Progress Note ---
Assessment and Plan Assessment and plan: Acute respiratory failure. She was sedated on ventilator. NOW on pressure support following re-intubation, off sedation, continue ICU care, wean as tolerated. Pulmonology following. plan for extubation 08/24/16 on bipap unable to do speech eval post extubation Acute encephalopathy, poa. Severe sepsis with septic shock. On Levaquin. Blood culture no growth, no new fever Hypokalemia- Replace and recheck in am. 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 On Eliquis History of pulmonary embolism. Has been on Eliquis. Repeat CT Angio chest negative for new pulmonary embolism Chronic CHF. Continuie Lasix Hyperthyroidsm. continue current therapy Hypptension/shock poa. LEVO on 4 mcg History of recent stroke Full code status History Interval history: Patient seen and examined. Follow up on sob, still on BiPAP. Imaging, old records, testing, labs, nursing notes reviewed. Hospitalist Physical - Physical exam Narrative exam: GEN: Thin frail, NAD, AWAKE, ALERT, ORIENTATED x 3 CVS: RRR, NORMAL S1S2 LUNGS/CHEST: CTA B, NORMAL CHEST EXPANSION B, GOOD AIR ENTRY B ABD: SOFT, NTND, GBS, NO REBOUND OR GUARDING NEURO: CN 2-12 GROSSLY INTACT, NO FOCAL DEFICITS PSY: CALM - Constitutional Vitals: Temp Pulse Resp BP Pulse Ox 98.6 F 76 22 128/71 100 08/25/16 12:00 08/25/16 17:20 08/25/16 17:20 08/25/16 17:09 08/25/16 17:25 General appearance: Present: severe distress Results - Labs CBC & Chem 7: 08/25/16 05:45 08/25/16 05:45 Labs: Laboratory Last Values WBC 14.4 K/mm3 (4.5-11.0) H 08/25/16 05:45 RBC 4.52 M/mm3 (3.65-5.03) 08/25/16 05:45 Hgb 11.8 gm/dl (10.1-14.3) 08/25/16 05:45 Hct 37.9 % (30.3-42.9) 08/25/16 05:45 MCV 84 fl (79-97) 08/25/16 05:45 MCH 26 pg (28-32) L 08/25/16 05:45 MCHC 31 % (30-34) 08/25/16 05:45 RDW 18.6 % (13.2-15.2) H 08/25/16 05:45 Plt Count 355 K/mm3 (140-440) 08/25/16 05:45 Add Manual Diff Complete 08/18/16 20:44 Total Counted 100 08/18/16 20:44 Seg Neutrophils % Cycle Touring Guide 08/18/16 20:44 Seg Neuts % (Manual) 71.0 % (40.0-70.0) H 08/18/16 20:44 Band Neutrophils % 19.0 % 08/18/16 20:44 Lymphocytes % (Manual) 5.0 % (13.4-35.0) L 08/18/16 20:44 Reactive Lymphs % (Man) 0 % 08/18/16 20:44 Monocytes % (Manual) 5.0 % (0.0-7.3) 08/18/16 20:44 Eosinophils % (Manual) 0 % (0.0-4.3) 08/18/16 20:44 Basophils % (Manual) 0 % (0.0-1.8) 08/18/16 20:44 Metamyelocytes % 0 % 08/18/16 20:44 Myelocytes % 0 % 08/18/16 20:44 Promyelocytes % 0 % 08/18/16 20:44 Blast Cells % 0 % 08/18/16 20:44 Nucleated RBC % Not Reportable 08/18/16 20:44 Seg Neutrophils # Man 14.7 K/mm3 (1.8-7.7) H 08/18/16 20:44 Band Neutrophils # 3.9 K/mm3 08/18/16 20:44 Lymphocytes # (Manual) 1.0 K/mm3 (1.2-5.4) L 08/18/16 20:44 Abs React Lymphs (Man) 0.0 K/mm3 08/18/16 20:44 Monocytes # (Manual) 1.0 K/mm3 (0.0-0.8) H 08/18/16 20:44 Eosinophils # (Manual) 0.0 K/mm3 (0.0-0.4) 08/18/16 20:44 Basophils # (Manual) 0.0 K/mm3 (0.0-0.1) 08/18/16 20:44 Metamyelocytes # 0.0 K/mm3 08/18/16 20:44 Myelocytes # 0.0 K/mm3 08/18/16 20:44 Promyelocytes # 0.0 K/mm3 08/18/16 20:44 Blast Cells # 0.0 K/mm3 08/18/16 20:44 WBC Morphology Not Reportable 08/18/16 20:44 Hypersegmented Neuts Not Reportable 08/18/16 20:44 Hyposegmented Neuts Not Reportable 08/18/16 20:44 Hypogranular Neuts Not Reportable 08/18/16 20:44 Smudge Cells Not Reportable 08/18/16 20:44 Toxic Granulation Not Reportable 08/18/16 20:44 Toxic Vacuolation Not Reportable 08/18/16 20:44 Dohle Bodies Not Reportable 08/18/16 20:44 Pelger-Huet Anomaly Not Reportable 08/18/16 20:44 Alberto Rods Not Reportable 08/18/16 20:44 Platelet Estimate Consistent w auto 08/18/16 20:44 Clumped Platelets Not Reportable 08/18/16 20:44 Plt Clumps, EDTA Not Reportable 08/18/16 20:44 Large Platelets Not Reportable 08/18/16 20:44 Giant Platelets Not Reportable 08/18/16 20:44 Platelet Satelliting Not Reportable 08/18/16 20:44 Plt Morphology Comment Not Reportable 08/18/16 20:44 RBC Morphology Not Reportable 08/18/16 20:44 Dimorphic RBCs Not Reportable 08/18/16 20:44 Polychromasia Not Reportable 08/18/16 20:44 Hypochromasia 1+ 08/18/16 20:44 Poikilocytosis Not Reportable 08/18/16 20:44 Anisocytosis 1+ 08/18/16 20:44 Microcytosis Not Reportable 08/18/16 20:44 Macrocytosis Not Reportable 08/18/16 20:44 Spherocytes Not Reportable 08/18/16 20:44 Pappenheimer Bodies Not Reportable 08/18/16 20:44 Sickle Cells Not Reportable 08/18/16 20:44 Target Cells Not Reportable 08/18/16 20:44 Tear Drop Cells Not Reportable 08/18/16 20:44 Ovalocytes Few 08/18/16 20:44 Helmet Cells Not Reportable 08/18/16 20:44 Alvarez-Verdi Bodies Not Reportable 08/18/16 20:44 [place] Rings Not Reportable 08/18/16 20:44 [place] Cells Not Reportable 08/18/16 20:44 Bite Cells Not Reportable 08/18/16 20:44 Crenated Cell Not Reportable 08/18/16 20:44 Elliptocytes Not Reportable 08/18/16 20:44 Acanthocytes (Spur) Not Reportable 08/18/16 20:44 Rouleaux Not Reportable 08/18/16 20:44 Hemoglobin C Crystals Not Reportable 08/18/16 20:44 Schistocytes Not Reportable 08/18/16 20:44 Malaria parasites Not Reportable 08/18/16 20:44 Gino Bodies Not Reportable 08/18/16 20:44 Hem Pathologist Commnt No 08/18/16 20:44 PT 18.1 Sec. (12.2-14.9) H 08/18/16 20:44 INR 1.50 (0.87-1.13) H 08/18/16 20:44 APTT 28.6 Sec. (24.2-36.6) 08/18/16 20:44 POC ABG pH 7.410 (7.35-7.45) 08/24/16 11:40 POC ABG pCO2 53.1 (35-45) H 08/24/16 11:40 POC ABG pO2 59 (80-105) L 08/24/16 11:40 POC ABG HCO3 33.7 08/24/16 11:40 POC ABG Total CO2 35 08/24/16 11:40 POC ABG O2 Sat 90 08/24/16 11:40 POC ABG Base Excess 9 08/24/16 11:40 FiO2 30 % 08/24/16 11:40 Sodium 142 mmol/L (137-145) 08/25/16 05:45 Potassium 4.0 mmol/L (3.6-5.0) D 08/25/16 05:45 Chloride 99.9 mmol/L (98-107) 08/25/16 05:45 Carbon Dioxide 33 mmol/L (22-30) H 08/25/16 05:45 Anion Gap 13 mmol/L 08/25/16 05:45 BUN 14 mg/dL (7-17) 08/25/16 05:45 Creatinine 0.6 mg/dL (0.7-1.2) L 08/25/16 05:45 Estimated GFR > 60 ml/min 08/25/16 05:45 BUN/Creatinine Ratio 23.33 % 08/25/16 05:45 Glucose 122 mg/dL (65-100) H 08/25/16 05:45 POC Glucose 156 (70-105) H 08/25/16 11:34 Lactic Acid 2.70 mmol/L (0.7-2.0) H* 08/19/16 11:00 Calcium 8.7 mg/dL (8.4-10.2) 08/25/16 05:45 Magnesium 2.30 mg/dL (1.7-2.3) 08/18/16 19:46 Total Bilirubin 0.40 mg/dL (0.1-1.2) 08/18/16 19:46 AST 11 units/L (5-40) 08/18/16 19:46 ALT 29 units/L (7-56) 08/18/16 19:46 Alkaline Phosphatase 95 units/L (35-129) 08/18/16 19:46 Troponin T < 0.010 ng/mL (0.00-0.029) 08/18/16 19:46 NT-Pro-B Natriuret Pep 440.6 pg/mL (0-900) 08/18/16 19:46 Total Protein 6.8 g/dL (6.3-8.2) 08/18/16 19:46 Albumin 2.9 g/dL (3.9-5) L 08/18/16 19:46 Albumin/Globulin Ratio 0.7 % 08/18/16 19:46 Urine Color Yellow (Yellow) 08/18/16 20:44 Urine Turbidity Slightly-cloudy (Clear) 08/18/16 20:44 Urine pH 6.0 (5.0-7.0) 08/18/16 20:44 Ur Specific [place] 1.012 (1.003-1.030) 08/18/16 20:44 Urine Protein 100 mg/dl mg/dL (Negative) 08/18/16 20:44 Urine Glucose (UA) Neg mg/dL (Negative) 08/18/16 20:44 Urine Ketones Neg mg/dL (Negative) 08/18/16 20:44 Urine Blood Lg (Negative) 08/18/16 20:44 Urine Nitrite Neg (Negative) 08/18/16 20:44 Urine Bilirubin Neg (Negative) 08/18/16 20:44 Urine Urobilinogen < 2.0 mg/dL (<2.0) 08/18/16 20:44 Ur Leukocyte Esterase Neg (Negative) 08/18/16 20:44 Urine WBC (Auto) 9.0 /HPF (0.0-6.0) H 08/18/16 20:44 Urine RBC (Auto) 25.0 /HPF (0.0-6.0) 08/18/16 20:44 U Epithel Cells (Auto) < 1.0 /HPF (0-13.0) 08/18/16 20:44 Urine Bacteria (Auto) 1+ /HPF (Negative) 08/18/16 20:44 Urine Mucus Few /HPF 08/18/16 20:44 Vancomycin Trough 11.5 ug/mL (5.0-20.0) 08/22/16 21:20
[2016-08-25] MEDS: REMERON PO SCH (21:41)
[2016-08-26] MEDS: NOVOLOG SUB-Q SCH ×4 (00:11→18:24)
[2016-08-26] MEDS: PROVENTIL IH SCH ×6 (00:22→23:29)
[2016-08-26] MEDS: NEURONTIN PO SCH ×2 (06:10→15:00)
--- NOTE | 2016-08-26 08:47 | Progress Note ---
Assessment and Plan - Patient Problems (1) COPD exacerbation Current Visit: Yes Status: Acute (2) Acute respiratory failure Current Visit: Yes Status: Acute Qualifiers: Respiratory failure complication: R (3) Altered mental status Current Visit: Yes Status: Acute Qualifiers: Altered mental status type: A Coma depth: C Coma timing: C (4) Septic shock Current Visit: Yes Status: Acute Subjective Principal diagnosis: acute respiratory failure, COPD exacerbation, sepsis Interval history: still on bipap. fio2 weaned to 40% ( still on bipap16/8) Objective Vital Signs - 12hr 08/25/16 08/25/16 08/25/16 21:00 21:16 21:30 Temperature Pulse Rate 84 82 83 Pulse Rate [ Anterior Bilateral Throughout] Pulse Rate [ Anterior Bilateral] Respiratory 31 H 29 H 26 H Rate Respiratory Rate [Anterior Bilateral Throughout] Respiratory Rate [Anterior Bilateral] Respiratory Rate [Bilateral Hand] Blood Pressure 104/57 104/57 104/57 O2 Sat by Pulse 93 96 92 Oximetry 08/25/16 08/25/16 08/25/16 21:46 22:00 22:16 Temperature Pulse Rate 78 81 79 Pulse Rate [ Anterior Bilateral Throughout] Pulse Rate [ Anterior Bilateral] Respiratory 28 H 29 H 35 H Rate Respiratory Rate [Anterior Bilateral Throughout] Respiratory Rate [Anterior Bilateral] Respiratory Rate [Bilateral Hand] Blood Pressure 104/57 85/49 85/49 O2 Sat by Pulse 92 93 97 Oximetry 08/25/16 08/25/16 08/25/16 22:30 22:46 23:00 Temperature Pulse Rate 82 83 83 Pulse Rate [ Anterior Bilateral Throughout] Pulse Rate [ Anterior Bilateral] Respiratory 26 H 32 H 32 H Rate Respiratory Rate [Anterior Bilateral Throughout] Respiratory Rate [Anterior Bilateral] Respiratory Rate [Bilateral Hand] Blood Pressure 85/49 85/49 132/68 O2 Sat by Pulse 98 95 94 Oximetry 08/25/16 08/25/16 08/25/16 23:16 23:30 23:34 Temperature Pulse Rate 80 82 79 Pulse Rate [ Anterior Bilateral Throughout] Pulse Rate [ Anterior Bilateral] Respiratory 30 H 22 29 H Rate Respiratory Rate [Anterior Bilateral Throughout] Respiratory Rate [Anterior Bilateral] Respiratory Rate [Bilateral Hand] Blood Pressure 132/68 132/68 132/68 O2 Sat by Pulse 97 98 96 Oximetry 08/25/16 08/25/16 08/25/16 23:46 23:52 23:58 Temperature Pulse Rate 74 86 Pulse Rate [ Anterior Bilateral Throughout] Pulse Rate [ 73 Anterior Bilateral] Respiratory 34 H 31 H Rate Respiratory Rate [Anterior Bilateral Throughout] Respiratory 31 H Rate [Anterior Bilateral] Respiratory Rate [Bilateral Hand] Blood Pressure 132/68 132/68 O2 Sat by Pulse 97 90 Oximetry 08/26/16 08/26/16 08/26/16 00:00 00:11 00:16 Temperature Pulse Rate 79 74 85 Pulse Rate [ Anterior Bilateral Throughout] Pulse Rate [ Anterior Bilateral] Respiratory 33 H 30 H 33 H Rate Respiratory Rate [Anterior Bilateral Throughout] Respiratory Rate [Anterior Bilateral] Respiratory 20 Rate [Bilateral Hand] Blood Pressure 123/63 123/63 O2 Sat by Pulse 87 94 90 Oximetry 08/26/16 08/26/16 08/26/16 00:28 00:30 00:38 Temperature 97.2 F L Pulse Rate 86 Pulse Rate [ Anterior Bilateral Throughout] Pulse Rate [ 85 Anterior Bilateral] Respiratory 31 H Rate Respiratory Rate [Anterior Bilateral Throughout] Respiratory 28 H Rate [Anterior Bilateral] Respiratory Rate [Bilateral Hand] Blood Pressure 123/63 O2 Sat by Pulse 96 Oximetry 08/26/16 08/26/16 08/26/16 00:46 01:00 01:16 Temperature Pulse Rate 83 81 82 Pulse Rate [ Anterior Bilateral Throughout] Pulse Rate [ Anterior Bilateral] Respiratory 27 H 27 H 28 H Rate Respiratory Rate [Anterior Bilateral Throughout] Respiratory Rate [Anterior Bilateral] Respiratory Rate [Bilateral Hand] Blood Pressure 123/63 101/48 101/48 O2 Sat by Pulse 99 96 100 Oximetry 08/26/16 08/26/16 08/26/16 01:20 01:30 01:46 Temperature Pulse Rate 81 84 80 Pulse Rate [ Anterior Bilateral Throughout] Pulse Rate [ Anterior Bilateral] Respiratory 34 H 36 H 30 H Rate Respiratory Rate [Anterior Bilateral Throughout] Respiratory Rate [Anterior Bilateral] Respiratory Rate [Bilateral Hand] Blood Pressure 101/48 101/48 O2 Sat by Pulse 100 100 100 Oximetry 08/26/16 08/26/16 08/26/16 02:00 02:16 02:30 Temperature Pulse Rate 83 84 76 Pulse Rate [ Anterior Bilateral Throughout] Pulse Rate [ Anterior Bilateral] Respiratory 34 H 32 H 29 H Rate Respiratory Rate [Anterior Bilateral Throughout] Respiratory Rate [Anterior Bilateral] Respiratory Rate [Bilateral Hand] Blood Pressure 118/57 118/57 118/57 O2 Sat by Pulse 98 100 100 Oximetry 08/26/16 08/26/16 08/26/16 02:46 03:00 03:16 Temperature Pulse Rate 80 83 82 Pulse Rate [ Anterior Bilateral Throughout] Pulse Rate [ Anterior Bilateral] Respiratory 27 H 29 H 34 H Rate Respiratory Rate [Anterior Bilateral Throughout] Respiratory Rate [Anterior Bilateral] Respiratory Rate [Bilateral Hand] Blood Pressure 118/57 119/55 119/55 O2 Sat by Pulse 99 96 98 Oximetry 08/26/16 08/26/16 08/26/16 03:30 03:46 04:00 Temperature Pulse Rate 82 78 79 Pulse Rate [ Anterior Bilateral Throughout] Pulse Rate [ 83 Anterior Bilateral] Respiratory 27 H 30 H 36 H Rate Respiratory Rate [Anterior Bilateral Throughout] Respiratory 29 H Rate [Anterior Bilateral] Respiratory Rate [Bilateral Hand] Blood Pressure 119/55 119/55 109/57 O2 Sat by Pulse 99 94 91 Oximetry 08/26/16 08/26/16 08/26/16 04:05 04:16 04:26 Temperature 97.8 F Pulse Rate 78 81 Pulse Rate [ Anterior Bilateral Throughout] Pulse Rate [ Anterior Bilateral] Respiratory 20 32 H Rate Respiratory Rate [Anterior Bilateral Throughout] Respiratory Rate [Anterior Bilateral] Respiratory Rate [Bilateral Hand] Blood Pressure 109/57 O2 Sat by Pulse 100 97 Oximetry 08/26/16 08/26/16 08/26/16 04:30 04:46 05:00 Temperature Pulse Rate 80 77 82 Pulse Rate [ Anterior Bilateral Throughout] Pulse Rate [ Anterior Bilateral] Respiratory 27 H 38 H 35 H Rate Respiratory Rate [Anterior Bilateral Throughout] Respiratory Rate [Anterior Bilateral] Respiratory Rate [Bilateral Hand] Blood Pressure 109/57 109/57 120/63 O2 Sat by Pulse 97 97 94 Oximetry 08/26/16 08/26/16 08/26/16 05:16 05:30 05:46 Temperature Pulse Rate 81 80 81 Pulse Rate [ Anterior Bilateral Throughout] Pulse Rate [ Anterior Bilateral] Respiratory 37 H 31 H 29 H Rate Respiratory Rate [Anterior Bilateral Throughout] Respiratory Rate [Anterior Bilateral] Respiratory Rate [Bilateral Hand] Blood Pressure 120/63 120/63 120/63 O2 Sat by Pulse 98 97 98 Oximetry 08/26/16 08/26/16 08/26/16 05:55 06:00 08:42 Temperature Pulse Rate 81 80 80 Pulse Rate [ 80 Anterior Bilateral Throughout] Pulse Rate [ Anterior Bilateral] Respiratory 26 H 33 H 36 H Rate Respiratory 36 H Rate [Anterior Bilateral Throughout] Respiratory Rate [Anterior Bilateral] Respiratory Rate [Bilateral Hand] Blood Pressure 111/60 128/68 O2 Sat by Pulse 97 95 99 Oximetry Constitutional: no acute distress, alert, other (mild distress,on BPAP) Eyes: non-icteric ENT: other (orally intubated, on vent) Neck: supple Ascultation: Right: rales (rare), Bilateral: diminished breath sounds, rhonchi ( rare) Percussion: Bilateral: not dull Cardiovascular: regular rate and rhythm, other (tachycardic) Gastrointestinal: normoactive bowel sounds Neurologic: other (R ASS +1) Psychiatric: mood appropriate CBC and BMP: 08/25/16 05:45 08/25/16 05:45 ABG, PT/INR, D-dimer: ABG POC ABG pH 7.410 (7.35-7.45) 08/24/16 11:40 POC ABG pCO2 53.1 (35-45) H 08/24/16 11:40 POC ABG pO2 59 (80-105) L 08/24/16 11:40 POC ABG HCO3 33.7 08/24/16 11:40 POC ABG Total CO2 35 08/24/16 11:40 POC ABG O2 Sat 90 08/24/16 11:40 PT/INR, D-dimer PT 18.1 Sec. (12.2-14.9) H 08/18/16 20:44 INR 1.50 (0.87-1.13) H 08/18/16 20:44 Abnormal lab findings: Abnormal Labs 08/18/16 08/18/16 08/18/16 20:44 20:44 20:44 WBC 20.7 H MCH 26 L RDW 17.3 H Seg Neuts % (Manual) 71.0 H Lymphocytes % (Manual) 5.0 L Seg Neutrophils # Man 14.7 H Lymphocytes # (Manual) 1.0 L Monocytes # (Manual) 1.0 H PT 18.1 H INR 1.50 H POC ABG pH POC ABG pCO2 POC ABG pO2 Sodium Potassium Chloride Carbon Dioxide BUN Creatinine Glucose POC Glucose Lactic Acid Calcium Urine WBC (Auto) 9.0 H 08/18/16 08/18/16 08/18/16 20:44 21:13 21:55 WBC MCH RDW Seg Neuts % (Manual) Lymphocytes % (Manual) Seg Neutrophils # Man Lymphocytes # (Manual) Monocytes # (Manual) PT INR POC ABG pH 7.569 H POC ABG pCO2 POC ABG pO2 182 H Sodium Potassium Chloride Carbon Dioxide BUN Creatinine Glucose POC Glucose Lactic Acid 2.10 H* 2.40 H* Calcium Urine WBC (Auto) 08/19/16 08/19/16 08/19/16 01:20 01:28 04:46 WBC MCH RDW Seg Neuts % (Manual) Lymphocytes % (Manual) Seg Neutrophils # Man Lymphocytes # (Manual) Monocytes # (Manual) PT INR POC ABG pH 7.521 H POC ABG pCO2 33.8 L POC ABG pO2 79 L Sodium Potassium Chloride Carbon Dioxide BUN Creatinine Glucose POC Glucose 114 H Lactic Acid 2.10 H* Calcium Urine WBC (Auto) 08/19/16 08/19/16 08/19/16 05:35 08:43 08:43 WBC 13.3 H MCH 26 L RDW 17.6 H Seg Neuts % (Manual) Lymphocytes % (Manual) Seg Neutrophils # Man Lymphocytes # (Manual) Monocytes # (Manual) PT INR POC ABG pH POC ABG pCO2 POC ABG pO2 Sodium 136 L Potassium Chloride 93.8 L Carbon Dioxide BUN Creatinine Glucose 119 H POC Glucose 113 H Lactic Acid Calcium 8.0 L Urine WBC (Auto) 08/19/16 08/20/16 08/20/16 11:00 04:00 04:00 WBC 14.9 H MCH 26 L RDW 18.0 H Seg Neuts % (Manual) Lymphocytes % (Manual) Seg Neutrophils # Man Lymphocytes # (Manual) Monocytes # (Manual) PT INR POC ABG pH POC ABG pCO2 POC ABG pO2 Sodium Potassium Chloride 97.2 L Carbon Dioxide BUN 18 H Creatinine Glucose 105 H POC Glucose Lactic Acid 2.70 H* Calcium 7.9 L Urine WBC (Auto) 08/20/16 08/20/16 08/21/16 04:31 11:25 04:58 WBC MCH RDW Seg Neuts % (Manual) Lymphocytes % (Manual) Seg Neutrophils # Man Lymphocytes # (Manual) Monocytes # (Manual) PT INR POC ABG pH 7.498 H 7.473 H POC ABG pCO2 POC ABG pO2 116 H Sodium Potassium Chloride Carbon Dioxide BUN Creatinine Glucose POC Glucose 110 H Lactic Acid Calcium Urine WBC (Auto) 08/21/16 08/21/16 08/22/16 05:00 05:00 01:39 WBC 13.7 H MCH 26 L RDW 18.1 H Seg Neuts % (Manual) Lymphocytes % (Manual) Seg Neutrophils # Man Lymphocytes # (Manual) Monocytes # (Manual) PT INR POC ABG pH 7.077 L POC ABG pCO2 119.1 H POC ABG pO2 65 L Sodium Potassium 3.5 L Chloride Carbon Dioxide BUN Creatinine Glucose POC Glucose Lactic Acid Calcium 8.0 L Urine WBC (Auto) 08/22/16 08/22/16 08/22/16 03:13 05:39 09:05 WBC 19.2 H MCH 26 L RDW 18.5 H Seg Neuts % (Manual) Lymphocytes % (Manual) Seg Neutrophils # Man Lymphocytes # (Manual) Monocytes # (Manual) PT INR POC ABG pH 7.293 L 7.337 L POC ABG pCO2 61.9 H 54.2 H POC ABG pO2 73 L 58 L Sodium Potassium Chloride Carbon Dioxide BUN Creatinine Glucose POC Glucose Lactic Acid Calcium Urine WBC (Auto) 08/22/16 08/22/16 08/22/16 09:05 09:24 11:35 WBC MCH RDW Seg Neuts % (Manual) Lymphocytes % (Manual) Seg Neutrophils # Man Lymphocytes # (Manual) Monocytes # (Manual) PT INR POC ABG pH 7.459 H POC ABG pCO2 46.0 H POC ABG pO2 302 H Sodium Potassium 3.5 L Chloride 95.1 L Carbon Dioxide BUN 19 H Creatinine Glucose 105 H POC Glucose Lactic Acid Calcium Urine WBC (Auto) 08/23/16 08/23/16 08/24/16 05:10 05:10 05:22 WBC 13.5 H MCH 26 L RDW 18.0 H Seg Neuts % (Manual) Lymphocytes % (Manual) Seg Neutrophils # Man Lymphocytes # (Manual) Monocytes # (Manual) PT INR POC ABG pH 7.488 H POC ABG pCO2 POC ABG pO2 68 L Sodium Potassium 3.1 L Chloride Carbon Dioxide BUN 18 H Creatinine Glucose POC Glucose Lactic Acid Calcium 8.3 L Urine WBC (Auto) 08/24/16 08/25/16 08/25/16 11:40 01:19 05:26 WBC MCH RDW Seg Neuts % (Manual) Lymphocytes % (Manual) Seg Neutrophils # Man Lymphocytes # (Manual) Monocytes # (Manual) PT INR POC ABG pH POC ABG pCO2 53.1 H POC ABG pO2 59 L Sodium Potassium Chloride Carbon Dioxide BUN Creatinine Glucose POC Glucose 133 H 122 H Lactic Acid Calcium Urine WBC (Auto) 08/25/16 08/25/16 08/25/16 05:45 05:45 11:34 WBC 14.4 H MCH 26 L RDW 18.6 H Seg Neuts % (Manual) Lymphocytes % (Manual) Seg Neutrophils # Man Lymphocytes # (Manual) Monocytes # (Manual) PT INR POC ABG pH POC ABG pCO2 POC ABG pO2 Sodium Potassium Chloride Carbon Dioxide 33 H BUN Creatinine 0.6 L Glucose 122 H POC Glucose 156 H Lactic Acid Calcium Urine WBC (Auto) 08/25/16 08/26/16 08/26/16 16:58 00:11 05:24 WBC MCH RDW Seg Neuts % (Manual) Lymphocytes % (Manual) Seg Neutrophils # Man Lymphocytes # (Manual) Monocytes # (Manual) PT INR POC ABG pH POC ABG pCO2 POC ABG pO2 Sodium Potassium Chloride Carbon Dioxide BUN Creatinine Glucose POC Glucose 132 H 172 H 128 H Lactic Acid Calcium Urine WBC (Auto)
--- NOTE | 2016-08-26 08:56 | XRay Report ---
AP CHEST :08/26/16 CLINICAL: Followup respiratory failure. COMPARISON:08/24/16 FINDINGS: Marked rotation left anterior.The endotracheal tube has been removed. The heart and pulmonary vascular are normal. The left lung is clear. Opacification of the right costophrenic angle is essentially by rotation and is probably not significantly changed compared to the prior exam. The right lung is otherwise clear. Pacer leads in heart. A right PICC line tip is in the distal SVC. IMPRESSION: No significant change after removal of the endotracheal tube. COPD.
[2016-08-26] MEDS: CLARITIN PO SCH (10:00)
[2016-08-26] MEDS: D5/0.45NS 1,000 ML IV SCH (12:00)
[2016-08-26] MEDS: ELIQUIS PO SCH ×2 (13:02→21:58)
[2016-08-26] MEDS: SENOKOT S PO SCH ×2 (13:02→22:00)
[2016-08-26] MEDS: TAPAZOLE PO SCH (13:02)
[2016-08-26] MEDS: PEPCID PO SCH ×2 (13:02→21:59)
--- NOTE | 2016-08-26 19:02 | Progress Note ---
Assessment and Plan Assessment and plan: -Acute respiratory failure. off ventilator; still on bipap, pulm following -Acute encephalopathy, poa. -Severe sepsis with septic shock. On Levaquin. Blood culture no growth, no new fever -Hypokalemia- Replace and recheck in am. -DVT lower ext diagnosed in Feb 2016, s/p IVC filter placement. On Eliquis -History of pulmonary embolism. Has been on Eliquis. Repeat CT Angio chest negative for new pulmonary embolism -Chronic CHF. Continuie Lasix -Hyperthyroidsm. continue current therapy -Hypptension/shock poa -History of recent stroke Full code status History Interval history: Patient seen and examined. Follow up on sob, still on BiPAP. Imaging, old records, testing, labs, nursing notes reviewed. Hospitalist Physical - Physical exam Narrative exam: GEN: Thin frail, on bipap CVS: RRR, NORMAL S1S2 LUNGS/CHEST: NORMAL CHEST EXPANSION B, GOOD AIR ENTRY B ABD: SOFT, NTND, GBS, NO REBOUND OR GUARDING NEURO: CN 2-12 GROSSLY INTACT, NO FOCAL DEFICITS PSY: CALM - Constitutional Vitals: Temp Pulse Resp BP Pulse Ox 98.6 F 95 H 39 H 113/47 88 08/26/16 16:00 08/26/16 18:36 08/26/16 18:36 08/26/16 18:00 08/26/16 18:00 Results - Labs CBC & Chem 7: 08/25/16 05:45 08/25/16 05:45 Labs: Laboratory Last Values WBC 14.4 K/mm3 (4.5-11.0) H 08/25/16 05:45 RBC 4.52 M/mm3 (3.65-5.03) 08/25/16 05:45 Hgb 11.8 gm/dl (10.1-14.3) 08/25/16 05:45 Hct 37.9 % (30.3-42.9) 08/25/16 05:45 MCV 84 fl (79-97) 08/25/16 05:45 MCH 26 pg (28-32) L 08/25/16 05:45 MCHC 31 % (30-34) 08/25/16 05:45 RDW 18.6 % (13.2-15.2) H 08/25/16 05:45 Plt Count 355 K/mm3 (140-440) 08/25/16 05:45 Add Manual Diff Complete 08/18/16 20:44 Total Counted 100 08/18/16 20:44 Seg Neutrophils % Store Coordinator 08/18/16 20:44 Seg Neuts % (Manual) 71.0 % (40.0-70.0) H 08/18/16 20:44 Band Neutrophils % 19.0 % 08/18/16 20:44 Lymphocytes % (Manual) 5.0 % (13.4-35.0) L 08/18/16 20:44 Reactive Lymphs % (Man) 0 % 08/18/16 20:44 Monocytes % (Manual) 5.0 % (0.0-7.3) 08/18/16 20:44 Eosinophils % (Manual) 0 % (0.0-4.3) 08/18/16 20:44 Basophils % (Manual) 0 % (0.0-1.8) 08/18/16 20:44 Metamyelocytes % 0 % 08/18/16 20:44 Myelocytes % 0 % 08/18/16 20:44 Promyelocytes % 0 % 08/18/16 20:44 Blast Cells % 0 % 08/18/16 20:44 Nucleated RBC % Not Reportable 08/18/16 20:44 Seg Neutrophils # Man 14.7 K/mm3 (1.8-7.7) H 08/18/16 20:44 Band Neutrophils # 3.9 K/mm3 08/18/16 20:44 Lymphocytes # (Manual) 1.0 K/mm3 (1.2-5.4) L 08/18/16 20:44 Abs React Lymphs (Man) 0.0 K/mm3 08/18/16 20:44 Monocytes # (Manual) 1.0 K/mm3 (0.0-0.8) H 08/18/16 20:44 Eosinophils # (Manual) 0.0 K/mm3 (0.0-0.4) 08/18/16 20:44 Basophils # (Manual) 0.0 K/mm3 (0.0-0.1) 08/18/16 20:44 Metamyelocytes # 0.0 K/mm3 08/18/16 20:44 Myelocytes # 0.0 K/mm3 08/18/16 20:44 Promyelocytes # 0.0 K/mm3 08/18/16 20:44 Blast Cells # 0.0 K/mm3 08/18/16 20:44 WBC Morphology Not Reportable 08/18/16 20:44 Hypersegmented Neuts Not Reportable 08/18/16 20:44 Hyposegmented Neuts Not Reportable 08/18/16 20:44 Hypogranular Neuts Not Reportable 08/18/16 20:44 Smudge Cells Not Reportable 08/18/16 20:44 Toxic Granulation Not Reportable 08/18/16 20:44 Toxic Vacuolation Not Reportable 08/18/16 20:44 Dohle Bodies Not Reportable 08/18/16 20:44 Pelger-Huet Anomaly Not Reportable 08/18/16 20:44 Alberto Rods Not Reportable 08/18/16 20:44 Platelet Estimate Consistent w auto 08/18/16 20:44 Clumped Platelets Not Reportable 08/18/16 20:44 Plt Clumps, EDTA Not Reportable 08/18/16 20:44 Large Platelets Not Reportable 08/18/16 20:44 Giant Platelets Not Reportable 08/18/16 20:44 Platelet Satelliting Not Reportable 08/18/16 20:44 Plt Morphology Comment Not Reportable 08/18/16 20:44 RBC Morphology Not Reportable 08/18/16 20:44 Dimorphic RBCs Not Reportable 08/18/16 20:44 Polychromasia Not Reportable 08/18/16 20:44 Hypochromasia 1+ 08/18/16 20:44 Poikilocytosis Not Reportable 08/18/16 20:44 Anisocytosis 1+ 08/18/16 20:44 Microcytosis Not Reportable 08/18/16 20:44 Macrocytosis Not Reportable 08/18/16 20:44 Spherocytes Not Reportable 08/18/16 20:44 Pappenheimer Bodies Not Reportable 08/18/16 20:44 Sickle Cells Not Reportable 08/18/16 20:44 Target Cells Not Reportable 08/18/16 20:44 Tear Drop Cells Not Reportable 08/18/16 20:44 Ovalocytes Few 08/18/16 20:44 Helmet Cells Not Reportable 08/18/16 20:44 [place] Bodies Not Reportable 08/18/16 20:44 [place] Rings Not Reportable 08/18/16 20:44 [place] Cells Not Reportable 08/18/16 20:44 Bite Cells Not Reportable 08/18/16 20:44 Crenated Cell Not Reportable 08/18/16 20:44 Elliptocytes Not Reportable 08/18/16 20:44 Acanthocytes (Spur) Not Reportable 08/18/16 20:44 Rouleaux Not Reportable 08/18/16 20:44 Hemoglobin C Crystals Not Reportable 08/18/16 20:44 Schistocytes Not Reportable 08/18/16 20:44 Malaria parasites Not Reportable 08/18/16 20:44 Gino Bodies Not Reportable 08/18/16 20:44 Hem Pathologist Commnt No 08/18/16 20:44 PT 18.1 Sec. (12.2-14.9) H 08/18/16 20:44 INR 1.50 (0.87-1.13) H 08/18/16 20:44 APTT 28.6 Sec. (24.2-36.6) 08/18/16 20:44 POC ABG pH 7.410 (7.35-7.45) 08/24/16 11:40 POC ABG pCO2 53.1 (35-45) H 08/24/16 11:40 POC ABG pO2 59 (80-105) L 08/24/16 11:40 POC ABG HCO3 33.7 08/24/16 11:40 POC ABG Total CO2 35 08/24/16 11:40 POC ABG O2 Sat 90 08/24/16 11:40 POC ABG Base Excess 9 08/24/16 11:40 FiO2 30 % 08/24/16 11:40 Sodium 142 mmol/L (137-145) 08/25/16 05:45 Potassium 4.0 mmol/L (3.6-5.0) D 08/25/16 05:45 Chloride 99.9 mmol/L (98-107) 08/25/16 05:45 Carbon Dioxide 33 mmol/L (22-30) H 08/25/16 05:45 Anion Gap 13 mmol/L 08/25/16 05:45 BUN 14 mg/dL (7-17) 08/25/16 05:45 Creatinine 0.6 mg/dL (0.7-1.2) L 08/25/16 05:45 Estimated GFR > 60 ml/min 08/25/16 05:45 BUN/Creatinine Ratio 23.33 % 08/25/16 05:45 Glucose 122 mg/dL (65-100) H 08/25/16 05:45 POC Glucose 128 (70-105) H 08/26/16 05:24 Lactic Acid 2.70 mmol/L (0.7-2.0) H* 08/19/16 11:00 Calcium 8.7 mg/dL (8.4-10.2) 08/25/16 05:45 Magnesium 2.30 mg/dL (1.7-2.3) 08/18/16 19:46 Total Bilirubin 0.40 mg/dL (0.1-1.2) 08/18/16 19:46 AST 11 units/L (5-40) 08/18/16 19:46 ALT 29 units/L (7-56) 08/18/16 19:46 Alkaline Phosphatase 95 units/L (35-129) 08/18/16 19:46 Troponin T < 0.010 ng/mL (0.00-0.029) 08/18/16 19:46 NT-Pro-B Natriuret Pep 440.6 pg/mL (0-900) 08/18/16 19:46 Total Protein 6.8 g/dL (6.3-8.2) 08/18/16 19:46 Albumin 2.9 g/dL (3.9-5) L 08/18/16 19:46 Albumin/Globulin Ratio 0.7 % 08/18/16 19:46 Urine Color Yellow (Yellow) 08/18/16 20:44 Urine Turbidity Slightly-cloudy (Clear) 08/18/16 20:44 Urine pH 6.0 (5.0-7.0) 08/18/16 20:44 Ur Specific [place] 1.012 (1.003-1.030) 08/18/16 20:44 Urine Protein 100 mg/dl mg/dL (Negative) 08/18/16 20:44 Urine Glucose (UA) Neg mg/dL (Negative) 08/18/16 20:44 Urine Ketones Neg mg/dL (Negative) 08/18/16 20:44 Urine Blood Lg (Negative) 08/18/16 20:44 Urine Nitrite Neg (Negative) 08/18/16 20:44 Urine Bilirubin Neg (Negative) 08/18/16 20:44 Urine Urobilinogen < 2.0 mg/dL (<2.0) 08/18/16 20:44 Ur Leukocyte Esterase Neg (Negative) 08/18/16 20:44 Urine WBC (Auto) 9.0 /HPF (0.0-6.0) H 08/18/16 20:44 Urine RBC (Auto) 25.0 /HPF (0.0-6.0) 08/18/16 20:44 U Epithel Cells (Auto) < 1.0 /HPF (0-13.0) 08/18/16 20:44 Urine Bacteria (Auto) 1+ /HPF (Negative) 08/18/16 20:44 Urine Mucus Few /HPF 08/18/16 20:44 Vancomycin Trough 11.5 ug/mL (5.0-20.0) 08/22/16 21:20
[2016-08-26] MEDS: REMERON PO SCH (22:00)
[2016-08-26 23:25] VITALS: BP 96/42
[2016-08-27] MEDS ORDERED: NACL 0.9% 1000 ML 1,000 ML IV ONE (00:32)
[2016-08-27 00:35] LABS: ISTAT Base Excess 11; ISTAT HCO3 39.4; ISTAT PCO2 106.3 (35-45); ISTAT PH 7.177 (7.35-7.45); ISTAT PO2 73 (80-105); ISTAT SO2 88; ISTAT TCO2 43
[2016-08-27] MEDS ORDERED: NACL 0.9% 1000 ML 1,000 ML ONE (00:35)
[2016-08-27] MEDS ORDERED: INTROPIN DRIP 800 MG/D5W 250 ML IV ONE (00:56)
[2016-08-27] MEDS ORDERED: ADRENALIN ONE (00:56)
[2016-08-27] MEDS ORDERED: NACL 0.9% 500 ML IV SCH (01:00)
--- NOTE | 2016-08-27 01:34 | Event Note ---
Date: 08/27/16 Tammy manule called at 00:56. She had pulseless electrical activity, apnea. Code run as per ACLS protocol for 31 mins, during which she was given several doses of Epinephrine. However resuscitation was unsuccessful. She was pronounced on 08/27/16 at 01:27
--- NOTE | 2016-08-27 01:35 | Death Note ---
Note Date of : 08/27/16 Time of : Time Pronounced:
--- NOTE | 2016-08-27 01:40 | XRay Report ---
FINAL REPORT PROCEDURE: XRAY CHEST SINGLE VIEW TECHNIQUE: Chest radiograph anteroposterior view. CPT 54885 HISTORY: ETT PLCMNT COMPARISON: 08/22/2016 FINDINGS: Heart: Normal. Mediastinum/Vessels: There is cardiac pacemaker with the battery in the left chest wall. Lungs/Pleural space: There is complete opacification of the right mercedes thorax. This appears to be a combination atelectasis, infiltrate and effusion. The left lung is aerated and clear. Mild chronic obstructive changes are noted.. Bony thorax: No acute osseous abnormality. Life support devices: The endotracheal tube ends 2 centimeters above the carinal. A nasogastric tube ends in the cervical esophageal region. This will need to be repositioned for appropriate placement. Right PICC catheter ends in the SVC. IMPRESSION: There is complete opacification of the right mercedes thorax on this study, this is most likely a combination of atelectasis, infiltrate and effusion. The left lung is clear. Mild COPD is noted. The feeding tube/nasogastric tube ends in the cervical esophageal region. This will need to be repositioned for appropriate placement. The endotracheal tube and right PICC catheter are properly positioned.. The above findings were discussed with the patient's ICU nurse Daysi Foster at the time of dictation 00:34 central standard time on 08/27/2016
[2016-08-27 01:44] LABS: Mean Corpuscular HGB Conc 28 % (30-34); Mean Corpuscular Volume 92 fl (79-97); Platelet Count 239 K/mm3 (140-440); White Blood Count 15.2 K/mm3 (4.5-11.0)
[2016-08-27 01:49] LABS: Hematocrit 37.8 % (30.3-42.9); Hemoglobin 10.4 gm/dl (10.1-14.3); Mean Corpuscular Hemoglobin 25 pg (28-32); Red Cell Distribution Width 20.1 % (13.2-15.2)
[2016-08-27 01:58] LABS: BUN/Creatinine Ratio 16.15; Chloride 104.2 mmol/L (98-107); Magnesium 2.7 mg/dL (1.7-2.3); Phosphorous 5.7 mg/dL (2.5-4.5); Potassium 5.8 mmol/L (3.6-5.0)
== END 2016-08-27 01:27 | DRG 870 ==
LOC: ED 18:43 → CC1 20:06
PROVIDERS: ADMIT Internal Medicine; ATTEND Internal Medicine
PROC: 5A1955Z Respiratory Ventilation, Greater than 96 Consecutive Hours (ICD-10-PCS; principal; 2016-08-18)
PROC: 0BH17EZ Insertion of Endotracheal Airway into Trachea, Via Natural or Artificial Opening (ICD-10-PCS; 2016-08-18)
PROC: 4A033R1 Measurement of Arterial Saturation, Peripheral, Percutaneous Approach (ICD-10-PCS; 2016-08-21)
PROC: 02HV33Z Insertion of Infusion Device into Superior Vena Cava, Percutaneous Approach (ICD-10-PCS; 2016-08-22)
DX: A41.9 Sepsis, unspecified organism (principal); J96.01 Acute respiratory failure with hypoxia; R65.21 Severe sepsis with septic shock; G93.40 Encephalopathy, unspecified; J44.1 Chronic obstructive pulmonary disease with (acute) exacerbation; I11.0 Hypertensive heart disease with heart failure; I50.9 Heart failure, unspecified; E78.5 Hyperlipidemia, unspecified; F03.90 Unspecified dementia, unspecified severity, without behavioral disturbance, psychotic disturbance, mood disturbance, and anxiety; G25.81 Restless legs syndrome; E05.90 Thyrotoxicosis, unspecified without thyrotoxic crisis or storm; Z88.8 Allergy status to other drugs, medicaments and biological substances; Z86.711 Personal history of pulmonary embolism; Z82.49 Family history of ischemic heart disease and other diseases of the circulatory system; Z86.73 Personal history of transient ischemic attack (TIA), and cerebral infarction without residual deficits
CPT/HCPCS: 31500; 36415; 36600; 70450; 71010; 71275; 74000; 80048; 80053; 80202; 81001; 82140; 82803; 82962; 83735; 83880; 84100; 84484; 85007; 85025; 85027; 85610; 85730; 87040; 87070; 87205; 93005; 93010; 94002; 94003; 94640; 94660; 94760; 96361; 96365; 96367; A9270-GY; J0171; J0360; J1265; J1940; J1956; J2250; J2543; J2704; J3010; J3370; J3475; J7030; J7040; J7050; Q9967